=== PATIENT | male | born 1960 | race Caucasian/White ===

== ENCOUNTER 2017-07-08 16:12 | Inpatient (IN) | payer MEDICARE, MEDICAID ==
--- NOTE | 2017-07-08 16:32 | ED Physician Chart ---
ED Chief Complaint/HPI - Patient Information Date Seen:: 07/08/17 Time Seen:: 16:20 Chief Complaint:: Agitation History of Present Illness:: onset x one day of agitation and hostile behavior; no report of trauma, H/As, SIs, neck pain, C/P, SOB, Abd. Pain, A/N/V/D/C, fever, chills, or urinary s/s Allergies:: Allergies Allergy/AdvReac Type Severity Reaction Status Date / Time No Known Allergies Allergy Verified 07/08/17 16:19 Vitals:: Vital Signs - 8 hr 07/08/17 16:19 Temp 97.7 F HR 72 RR 16 BP 132/84 O2 Sat % 96 Historian:: Patient, EMS Review:: Nurse's Note Reviewed, EMS run form Reviewed ED Review of Systems - Review of Systems General/Constitutional: No fever, No chills, No weight loss, No weakness, No diaphoresis, No edema, No loss of appetite Skin: No skin lesions, No rash, No bruising Head: No headache, No light-headedness Eyes: No loss of vision, No pain, No diplopia ENT: No earache, No nasal drainage, No sore throat, No tinnitus Neck: No neck pain, No swelling, No thyromegaly, No stiffness, No mass noted Cardio Vascular: No chest pain, No palpitations, No PND, No orthopnea, No edema Pulmonary: No SOB, No cough, No sputum, No wheezing GI: No nausea, No vomiting, No diarrhea, No pain, No melena, No hematochezia, No constipation, No hematemesis G/U: No dysuria, No frequency, No hematuria, No nacturia Musculoskeletal: No bone or joint pain, No back pain, No muscle pain Endocrine: No polyuria, No polydipsia Psychiatric: Prior psych history, No depression, Anxiety, No suicidal ideation, No homicidal ideation, No auditory hallucination, No visual hallucination Hematopoietic: No bruising, No lymphadenopathy Allergic/Immuno: No urticaria, No angioedema Neurological: No syncope, No focal symptoms, No weakness, No paresthesia, No headache, No seizure, No dizziness, No confusion, No vertigo ED Past Medical History - Past Medical History Obtainable: Yes Past Medical History: HTN Family History: HTN Social History: Non Smoker, No Alcohol, No Drug Use, Single, Homeless Surgical History: None Psychiatricy History: Bipolar Medication: Reviewed ED Physical Exam - Physical Examination General/Constitutional: Awake, Well-developed, well-nourished, Alert, No distress, GCS 15, Non-toxic appearing, Ambulatory Head: Atraumatic Eyes: Lids, conjuctiva normal, PERRL, EOMI Skin: Nl inspection, No rash, No skin lesions, No ecchymosis, Well hydrated, No lymphadenopathy ENMT: External ears, nose nl, Nasal exam nl, Lips, teeth, gums nl Neck: Nontender, Full ROM w/o pain, No JVD, No nuchal rigidity, No bruit, No mass, No stridor Respiratory: Nl effort/Exclusion, Clear to Auscultation, No Wheeze/Rhonchi/Rales Cardio Vascular: RRR, No murmur, gallop, rubs, NL S1 S2, Carotid/Femoral/Distal pulses equal bilaterally GI: No tenderness/rebounding/guarding, No organomegaly, No hernia, Normal BS's, Nondistended, No mass/bruits, No McBurney tenderness : No CVA tenderness Extremities: No tenderness or effusion, Full ROM, normal strength in all extremities, No edema, Normal digits & nails Neuro/Psych: Alert/oriented, DTR's symmetric, Normal sensory exam, Normal motor strength, Judgement/insight normal, Mood normal, Normal gait, No focal deficits Other Neuro/Psych comments:: + Psychomotor Agitation; no SIs; Mood/Affect: Labile Misc: Normal back, No paraspinal tenderness ED Labs/Radiology/EKG Results - Lab Results Comments:: unremarkable - EKG Interpretations EKG Time:: 16:40 Rate & Rhythm: 72; NSR Comments:: non-specific st-t changes ED Septic Shock - . Is Septic Shock (SBP<90, OR Lactate>4 mmol\L) present?: No - <6hrs of presentation: Vital Signs: Vital Signs - 8 hr 07/08/17 16:19 Temp 97.7 F HR 72 RR 16 BP 132/84 O2 Sat % 96 ED Reassessment (Disposition) - Reassessment Reassessment Condition:: Improved - Diagnosis Diagnosis:: Medical Clearance; Agitation; Bipolar Disorder; Psychosis - Aftercare/Follow up Instructions Aftercare/Follow-Up Instructions:: Counseled pt regarding lab results/diagnosis & need follow up, Counseled pt & family regarding lab results/diagnosis & need follow up - Patient Disposition Discharge/Transfer:: Acute Care w/in this hosp Accepting Physician:: Dr. Burden Time Called:: 2678 Time Responded:: 17:15 Admitted to:: [facility] Spoke to:: Dr. Burden Admitting Medical Physician:: Dr. Burden Admitting Psych Physician:: Dr. Eason Condition at Disposition:: Stable, Improved ED Discharge Plan - Patient Disposition Instructions: Psychosis
[2017-07-08 16:51] LABS: % BASOPHILS 0.1 % (0.0-2.0); % EOSINOPHILS 6.9 % (0.0-5.0); % LYMPHOCYTES 26.2 % (20.0-50.0); % MONOCYTES 10.9 % (2.0-10.0); % NEUTROPHILS 55.9 % (40.0-80.0); EOSINOPHILE ABSOLUTE 0.5 Th/cmm (0.1-0.4); HEMATOCRIT 42.7 % (41.0-60); HEMOGLOBIN 14.2 gm/dL (12-16); LYMPHOCYTE ABSOLUTE 1.9 Th/cmm (1.5-3.0); MEAN CELL VOLUME 91.4 fl (80-99); MEAN CORPUSCULAR HEMOGLOBIN 30.4 pg (26.0-30.0); MEAN CORPUSCULAR HGB CONC 33.3 pg (28.0-36.0); MONOCYTE ABSOLUTE 0.8 Th/cmm (0.3-1.0); NEUTROPHILE ABSOLUTE 3.9 Th/cmm (1.8-8.0); PLATELET COUNT 288 Th/cmm (150-400); RED BLOOD COUNT 4.67 Mil/cmm (4.30-5.70); RED CELL DISTRIBUTION WIDTH 12.3 % (11.5-20.0); WHITE BLOOD COUNT 7.1 Th/cmm (4.8-10.8)
[2017-07-08 17:07] LABS: URINE MICROSCOPIC INDICATED? YES; URINE SOURCE CLEAN C
[2017-07-08 17:09] LABS: URINE BILIRUBIN NEGATIVE (NEGATIVE); URINE BLOOD NEGATIVE (NEGATIVE); URINE GLUCOSE (UA) NEGATIVE (NEGATIVE); URINE KETONE NEGATIVE (NEGATIVE); URINE LEUKOCYTE ESTERASE NEGATIVE (NEGATIVE); URINE NITRATE NEGATIVE (NEGATIVE); URINE PROTEIN NEGATIVE (NEGATIVE); URINE UROBILINOGEN 0.2 E.U./dL (0.2 - 1.0)
[2017-07-08 17:11] LABS: ALB/GLOB RATIO 1.4 (1.0-1.8); ALKALINE PHOSPHATASE 68 U/L (34-104); ANION GAP 8.3 (7.0-16.0); BILIRUBIN,TOTAL 0.5 mg/dL (0.3-1.0); BUN - UREA NITROGEN 17 mg/dL (7-25); CALCIUM SERUM 10.2 mg/dL (8.6-10.3); CARBON DIOXIDE 29.3 mEq/L (21.0-31.0); CHLORIDE 105 mEq/L (98-107); CHOLESTEROL 160 mg/dL (<200); GFR AFRICAN-AMERICAN > 60.0 ml/min (>90); GFR NON AFRICAN-AMERICAN > 60.0 ml/min; GLUCOSE 109 mg/dL (70-105); HDL -HIGH DENSITY LIPOPROTEIN 47 mg/dL (23-92); POTASSIUM SERUM 4.6 mEq/L (3.5-5.1); SALICYLATES (ASPIRIN) < 25.0 mg/L (30.0-100.0); SGOT 14 U/L (13-39); SGPT/ALT 14 U/L (7-52); SODIUM SERUM 138 mEq/L (136-145); TOTAL PROTEIN,SERUM 6.9 gm/dL (6.0-8.3); TRIGLYCERIDES 86 mg/dL (<150)
[2017-07-08 17:16] LABS: ACETAMINOPHEN < 10.0 ug/mL (10.0-30.0)
[2017-07-08 17:31] LABS: AMPHETAMINE URINE NEGATIVE (NEGATIVE); BARBITURATES URINE NEGATIVE (NEGATIVE); BENZODIAZEPINES QUAL URINE NEGATIVE (NEGATIVE); CANNABINOID THC POSITIVE (NEGATIVE); COCAINE METABOLITE QUAL URINE NEGATIVE (NEGATIVE); METHADONE URINE NEGATIVE (NEGATIVE); METHAMPHETAMINES QUAL URINE NEGATIVE (NEGATIVE); OPIATES (MORPHINE) QUAL. URINE NEGATIVE (NEGATIVE); PHENCYCLIDINE (PCP) URINE NEGATIVE (NEGATIVE); TRICYCLICS (TCA) QUAL. URINE NEGATIVE (NEGATIVE)
[2017-07-08 17:49] LABS: URINE CLARITY CLEAR (CLEAR); URINE COLOR YELLOW
[2017-07-08 17:50] LABS: URINE BACTERIA NONE SEEN /hpf (NONE SEEN); URINE EPITHELIAL CELLS NONE SEEN /lpf (FEW); URINE RBC NONE SEEN /hpf (0-5); URINE WBC NONE SEEN /hpf (0-5)
[2017-07-08 18:24] LABS: A1C % 5.5 % (4.0-6.0)
[2017-07-08] MEDS ORDERED: Magnesium Hydroxide (MOM) 30 mL UDC PO PRN (18:48)
[2017-07-08] MEDS ORDERED: Maalox 30 mL Cup PO PRN (18:48)
[2017-07-08 19:03] VITALS: BP 120/68
[2017-07-09] MEDS: Multivitamin Tab PO SCH (08:46)
--- NOTE | 2017-07-09 10:51 | History and Physical ---
History of Present Illness - HPI Chief Complaint: Increased in agitation HPI: Patient was send from Care Home secondary to increased in agitation. he was send to ER for Eval and treatment. 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: Report: No Pertinent Hx GI: Report: No Pertinent Hx Psych: Report: Schizophrenia Musculoskeletal: Report: No Pertinent Hx Rheumatologic: Report: No pertinent Hx Infectious Disease: Report: No Pertinent Hx Renal/: Report: No Pertinent Hx Endocrine: Report: No Pertinent Hx Dermatology: Report: No Pertinent Hx - Past Surgical History Past Surgical History: No pertinent Hx Family Medical History - Family Member Mother Name:: Prakash Lazcano Ethnicity: Non- Living Status: Hx Family Diabetes: Yes Other Medical History: Hyperthyroidism Social History Smoke: No Alcohol: None Drugs: None Lives: Care Home Domestic Violence: Negative - Medications Home Medications: Home Medication Medication Instructions Recorded Type Bismuth Subsalicylate 30 ml PO Q4HR PRN 07/09/17 History [Pepto-Bismol] Diphenhydramine HCL [Benadryl] 50 mg PO HS PRN 07/09/17 History Guaifenesin DM [Robitussin DM] 5 ml PO QID PRN 07/09/17 History Ibuprofen [Motrin Ib] 400 mg PO Q6HR 07/09/17 History Lorazepam [Ativan] 0.5 mg PO Q4HR PRN 07/09/17 History Methocarbamol [Robaxin-750] 750 mg PO Q6HR 07/09/17 History Risperidone [Risperdal] 2 mg PO HS 07/09/17 History hydrOXYzine Pamoate [Vistaril] 50 mg PO Q4HR PRN 07/09/17 History - Allergies Allergies/Adverse Reactions: Allergies Allergy/AdvReac Type Severity Reaction Status Date / Time No Known Allergies Allergy Verified 07/08/17 16:19 Review of Systems - Review of Systems Constitutional: Report: No Significant Eyes: Report: No Significant ENT: Report: No Significant Respiratory: Report: No Significant Cardiovascular: Report: No Significant Gastrointestinal: Report: No Significant Genitourinary: Report: No Significant Musculoskeletal: Report: No Significant Skin: Report: No Significant Neurological: Report: No Significant Physical Exam - Physical Exam HEENT: Report: Ears Nose Throat within normal limits Neck: Report: Within normal limits Cardiovascular Systems: Report: Regular, Rate and Rhythm Respiratory: Report: Breath Sounds are within normal limits Abdomen: Report: Non-tender to palpation Back: Report: Inspection of back is within normal limits. Extremities: Report: Non-tender to palpation. Skin: Report: Color of skin is within normal limits Neuro/Psych: Report: Disoriented to name time or place - Lab Results All Lab Results last 24 hours: Laboratory Results - last 24 hr 07/08/17 07/08/17 07/08/17 16:44 16:44 16:44 WBC 7.1 RBC 4.67 Hgb 14.2 Hct 42.7 MCV 91.4 MCH 30.4 H MCHC Differential 33.3 RDW 12.3 Plt Count 288 MPV 7.0 Neutrophils % 55.9 Lymphocytes % 26.2 Monocytes % 10.9 H Eosinophils % 6.9 H Basophils % 0.1 Sodium 138 Potassium 4.6 Chloride 105 Carbon Dioxide 29.3 Anion Gap 8.3 BUN 17 Creatinine 1.0 Est GFR ( Amer) > 60.0 Est GFR (Non-Af Amer) > 60.0 BUN/Creatinine Ratio 17.0 Glucose 109 H Hemoglobin A1c % 5.5 Calcium 10.2 Total Bilirubin 0.5 AST 14 ALT 14 Alkaline Phosphatase 68 Total Protein 6.9 Albumin 4.0 L Globulin 2.9 Albumin/Globulin Ratio 1.4 Triglycerides 86 Cholesterol 160 LDL Cholesterol Direct 100 HDL Cholesterol 47 TSH Salicylates < 25.0 L Acetaminophen < 10.0 L Ethyl Alcohol < 10 07/08/17 16:44 WBC RBC Hgb Hct MCV MCH MCHC Differential RDW Plt Count MPV Neutrophils % Lymphocytes % Monocytes % Eosinophils % Basophils % Sodium Potassium Chloride Carbon Dioxide Anion Gap BUN Creatinine Est GFR ( Amer) Est GFR (Non-Af Amer) BUN/Creatinine Ratio Glucose Hemoglobin A1c % Calcium Total Bilirubin AST ALT Alkaline Phosphatase Total Protein Albumin Globulin Albumin/Globulin Ratio Triglycerides Cholesterol LDL Cholesterol Direct HDL Cholesterol TSH 0.44 Salicylates Acetaminophen Ethyl Alcohol - Assessment Assessment: Patient is awake, alert, agitated at moments. DX: Psychosis, HTN - Plan Plan: Patient is under Psychiatric care, continue with SNF meds. Will continue to monitor.
[2017-07-09] MEDS ORDERED: Haloperidol Lactate 5 mg/mL 1mL Vial ONE (11:40)
[2017-07-09] MEDS ORDERED: Haloperidol Lactate 5 mg/mL 1mL Vial IM ONE (11:51)
--- NOTE | 2017-07-10 01:47 | Psychosocial Evaluation ---
DATE OF SERVICE: 07/09/2017 JUSTIFICATION FOR HOSPITALIZATION: The patient homicidal, wants to kill cousin. CHIEF COMPLAINT: "I am the Ark of [employer] [place]." HISTORY OF PRESENT ILLNESS: This is a 57-year-old male who states he has a history of mental illness, states that his cousin is "the son of evil" and that the patient is the "Ark of the [place]und[place]" and that there is a montelongo that is going to ensue and he wants his cousin to come to the hospital, so he can montelongo his cousin. The patient committed to harming cousin, wants to kill cousin. The patient upset, endorsing psychological distress and turmoil, highly disorganized and psychotic, not making any sense at times. PAST PSYCHIATRIC HISTORY: "Mental illness." MEDICATIONS: Reviewed. He states he takes Risperdal, unclear compliance. FAMILY HISTORY: Noncontributory. SOCIAL HISTORY: Born in the [facility], single, no kids, homeless, smokes marijuana. When I asked him where his cousin lives - he does not know, when I asked him his cousin's phone number - he does not know, he does give me his cousin's name however. MENTAL STATUS EXAMINATION: Stated age, somewhat lethargic, not answering some questions. Mood "okay." Affect flat. Thought processes were disorganized. Thought content not suicidal, but he is homicidal, wants to harm cousin, also paranoid and delusional and grandiose. Insight and judgment strongly diminished. PROVISIONAL DIAGNOSIS: Schizophrenia. MEDICAL: Please see full H and P. Also, marijuana use disorder, unspecified. ESTIMATED LENGTH OF STAY: 5-7 days. Functional impairments not noted. Pain 0/10. ASSESSMENT: The patient requiring inpatient hospitalization, psychotic, delusional, homicidal. PLAN: Continue Risperdal. Titrate dose. A Tarasoff may need to be filed if contact information can be found for the cousin. CONDITIONS FOR DISCHARGE: Improved mood, improved affect, cessation of any HI and better control of his psychotic symptoms. [facility]# [id number]
[2017-07-10] MEDS: Multivitamin Tab PO SCH (08:05)
--- NOTE | 2017-07-10 08:44 | General Progress Note ---
Subjective - Review of Systems Service Date: 07/10/17 Subjective: I want to see my doctor. Objective - Results Result Diagrams: 07/08/17 16:44 07/08/17 16:44 Recent Labs: Laboratory Last Values WBC 7.1 Th/cmm (4.8-10.8) 07/08/17 16:44 RBC 4.67 Mil/cmm (4.30-5.70) 07/08/17 16:44 Hgb 14.2 gm/dL (12-16) 07/08/17 16:44 Hct 42.7 % (41.0-60) 07/08/17 16:44 MCV 91.4 fl (80-99) 07/08/17 16:44 MCH 30.4 pg (26.0-30.0) H 07/08/17 16:44 MCHC Differential 33.3 pg (28.0-36.0) 07/08/17 16:44 RDW 12.3 % (11.5-20.0) 07/08/17 16:44 Plt Count 288 Th/cmm (150-400) 07/08/17 16:44 MPV 7.0 fl 07/08/17 16:44 Neutrophils % 55.9 % (40.0-80.0) 07/08/17 16:44 Lymphocytes % 26.2 % (20.0-50.0) 07/08/17 16:44 Monocytes % 10.9 % (2.0-10.0) H 07/08/17 16:44 Eosinophils % 6.9 % (0.0-5.0) H 07/08/17 16:44 Basophils % 0.1 % (0.0-2.0) 07/08/17 16:44 Sodium 138 mEq/L (136-145) 07/08/17 16:44 Potassium 4.6 mEq/L (3.5-5.1) 07/08/17 16:44 Chloride 105 mEq/L (98-107) 07/08/17 16:44 Carbon Dioxide 29.3 mEq/L (21.0-31.0) 07/08/17 16:44 Anion Gap 8.3 (7.0-16.0) 07/08/17 16:44 BUN 17 mg/dL (7-25) 07/08/17 16:44 Creatinine 1.0 mg/dL (0.7-1.3) 07/08/17 16:44 Est GFR ( Amer) > 60.0 ml/min (>90) 07/08/17 16:44 Est GFR (Non-Af Amer) > 60.0 ml/min 07/08/17 16:44 BUN/Creatinine Ratio 17.0 07/08/17 16:44 Glucose 109 mg/dL (70-105) H 07/08/17 16:44 Hemoglobin A1c % 5.5 % (4.0-6.0) 07/08/17 16:44 Calcium 10.2 mg/dL (8.6-10.3) 07/08/17 16:44 Total Bilirubin 0.5 mg/dL (0.3-1.0) 07/08/17 16:44 AST 14 U/L (13-39) 07/08/17 16:44 ALT 14 U/L (7-52) 07/08/17 16:44 Alkaline Phosphatase 68 U/L (34-104) 07/08/17 16:44 Total Protein 6.9 gm/dL (6.0-8.3) 07/08/17 16:44 Albumin 4.0 gm/dL (4.2-5.5) L 07/08/17 16:44 Globulin 2.9 gm/dL 07/08/17 16:44 Albumin/Globulin Ratio 1.4 (1.0-1.8) 07/08/17 16:44 Triglycerides 86 mg/dL (<150) 07/08/17 16:44 Cholesterol 160 mg/dL (<200) 07/08/17 16:44 LDL Cholesterol Direct 100 mg/dL (75-193) 07/08/17 16:44 HDL Cholesterol 47 mg/dL (23-92) 07/08/17 16:44 TSH 0.44 uIU/ml (0.34-5.60) 07/08/17 16:44 Urine Source CLEAN C 07/08/17 16:00 Urine Color YELLOW 07/08/17 16:00 Urine Clarity CLEAR (CLEAR) 07/08/17 16:00 Urine pH 7.0 (4.6 - 8.0) 07/08/17 16:00 Ur Specific [place] 1.020 (1.005-1.030) 07/08/17 16:00 Urine Protein NEGATIVE mg/dL (NEGATIVE) 07/08/17 16:00 Urine Glucose (UA) NEGATIVE mg/dL (NEGATIVE) 07/08/17 16:00 Urine Ketones NEGATIVE mg/dL (NEGATIVE) 07/08/17 16:00 Urine Blood NEGATIVE (NEGATIVE) 07/08/17 16:00 Urine Nitrate NEGATIVE (NEGATIVE) 07/08/17 16:00 Urine Bilirubin NEGATIVE (NEGATIVE) 07/08/17 16:00 Urine Urobilinogen 0.2 E.U./dL (0.2 - 1.0) 07/08/17 16:00 Ur Leukocyte Esterase NEGATIVE (NEGATIVE) 07/08/17 16:00 Urine RBC NONE SEEN /hpf (0-5) 07/08/17 16:00 Urine WBC NONE SEEN /hpf (0-5) 07/08/17 16:00 Ur Epithelial Cells NONE SEEN /lpf (FEW) 07/08/17 16:00 Urine Bacteria NONE SEEN /hpf (NONE SEEN) 07/08/17 16:00 Salicylates < 25.0 mg/L (30.0-100.0) L 07/08/17 16:44 Urine Opiates Screen NEGATIVE (NEGATIVE) 07/08/17 16:00 Urine Methadone Screen NEGATIVE (NEGATIVE) 07/08/17 16:00 Acetaminophen < 10.0 ug/mL (10.0-30.0) L 07/08/17 16:44 Ur Barbiturates Screen NEGATIVE (NEGATIVE) 07/08/17 16:00 Ur Tricyclics Screen NEGATIVE (NEGATIVE) 07/08/17 16:00 Ur Phencyclidine Scrn NEGATIVE (NEGATIVE) 07/08/17 16:00 Amphetamines Screen NEGATIVE (NEGATIVE) 07/08/17 16:00 U Methamphetamines Scrn NEGATIVE (NEGATIVE) 07/08/17 16:00 U Benzodiazepines Scrn NEGATIVE (NEGATIVE) 07/08/17 16:00 U Cocaine Metab Screen NEGATIVE (NEGATIVE) 07/08/17 16:00 U Cannabinoids Screen POSITIVE (NEGATIVE) H 07/08/17 16:00 Ethyl Alcohol < 10 mg/dL (0-10) 07/08/17 16:44 RPR NONREACTIVE (NONREACTIVE) 07/08/17 16:44 - Physical Exam Vitals and I&O: Vital Signs Temp 98.1 F 07/10/17 06:56 Pulse 95 07/10/17 06:56 Resp 20 07/10/17 06:56 BP 117/67 07/10/17 06:56 Pulse Ox 99 07/10/17 06:56 Intake & Output 07/09/17 07/10/17 07/10/17 18:59 06:59 18:59 Intake Total 900 120 Balance 900 120 Intake: Oral 900 120 Other: # Voids 3 2 Stool Characteristics Soft Formed Active Medications: Current Medications Acetaminophen (Tylenol) 650 mg PO Q4HR PRN PRN Reason: Mild Pain / Temp above 100 Stop: 09/06/17 18:47 Al Hydrox/Mg Hydrox/Simethicone (Maalox) 30 ml PO Q4HR PRN PRN Reason: GI DISTRESS Stop: 09/06/17 18:47 Lorazepam (Ativan) 0.5 mg PO Q4HR PRN; Protocol PRN Reason: Agitation Stop: 08/07/17 18:47 Last Admin: 07/10/17 08:05 Dose: 0.5 mg Magnesium Hydroxide (Milk Of Magnesia) 30 ml PO HS PRN PRN Reason: Constipation Multivitamins/Vitamin C (Theragran) 1 tab PO DAILY KATHIE Stop: 09/07/17 08:59 Last Admin: 07/10/17 08:05 Dose: 1 tab Risperidone (Risperdal) 2 mg PO DAILY KATHIE PRN Reason: Protocol Stop: 09/07/17 08:59 Last Admin: 07/10/17 08:05 Dose: 2 mg Zolpidem Tartrate (Ambien) 5 mg PO HS PRN PRN Reason: Insomnia Stop: 09/06/17 18:47 General: Alert, No acute distress HEENT: Atraumatic, PERRLA Cardiovascular: Regular rate Lungs: Clear to auscultation Abdomen: Bowel sounds, Soft Extremities: Other (No edema) Neurological: Normal gait Skin: Other (Warm and dry) Psych/Mental Status: Other (Confused, not oriented) Assessment/Plan - Assessment Assessment: Patient is awake, alert, agitated at moments. DX: Psychosis, HTN - Plan Plan: Patient is under Psychiatric care, continue with SNF meds. Will continue to monitor.
--- NOTE | 2017-07-10 16:33 | Progress Notes ---
DATE: 07/10/2017 The patient remains symptomatic, still talking about being The [place] of [place], he is a positive spirit, his [id number] is "the son of evil," still talking he wanted to kill him, "montelongo, I am ready to montelongo him." He states that he wants to surround him with "peace and love." The patient is highly delusional, bizarre. The patient at the same time also agitated, required emergency medications over the past 24 hours. ASSESSMENT: The patient remains symptomatic, highly delusional, still with psychotic agitation, responding heavily to internal stimuli, hyper-restorationist. PLAN: Initiate a 14-day hold. Increase Respirdal. [facility]# [id number]
--- NOTE | 2017-07-11 07:02 | Progress Notes ---
DATE: 07/11/2017 SUBJECTIVE: The patient remains symptomatic, delusional, bizarre, still stating that he wants to kill his cousin and now when I ask him if he still wants to kill his cousin, he states "oh yes I definitely want to kill him." When I asked him how, he states "with peace and love.'' The patient is odd, still at times agitated, mumbling to self. ASSESSMENT: The patient highly delusional, homicidal, not safe for a lower level of care. Given recent dose increase of Risperdal, will continue at current dose. [facility]# [id number]
[2017-07-11] MEDS: Multivitamin Tab PO SCH (08:17)
--- NOTE | 2017-07-11 10:45 | General Progress Note ---
Subjective - Review of Systems Service Date: 07/11/17 Subjective: I want to kill the antichrist Objective - Results Result Diagrams: 07/08/17 16:44 07/08/17 16:44 Recent Labs: Laboratory Last Values WBC 7.1 Th/cmm (4.8-10.8) 07/08/17 16:44 RBC 4.67 Mil/cmm (4.30-5.70) 07/08/17 16:44 Hgb 14.2 gm/dL (12-16) 07/08/17 16:44 Hct 42.7 % (41.0-60) 07/08/17 16:44 MCV 91.4 fl (80-99) 07/08/17 16:44 MCH 30.4 pg (26.0-30.0) H 07/08/17 16:44 MCHC Differential 33.3 pg (28.0-36.0) 07/08/17 16:44 RDW 12.3 % (11.5-20.0) 07/08/17 16:44 Plt Count 288 Th/cmm (150-400) 07/08/17 16:44 MPV 7.0 fl 07/08/17 16:44 Neutrophils % 55.9 % (40.0-80.0) 07/08/17 16:44 Lymphocytes % 26.2 % (20.0-50.0) 07/08/17 16:44 Monocytes % 10.9 % (2.0-10.0) H 07/08/17 16:44 Eosinophils % 6.9 % (0.0-5.0) H 07/08/17 16:44 Basophils % 0.1 % (0.0-2.0) 07/08/17 16:44 Sodium 138 mEq/L (136-145) 07/08/17 16:44 Potassium 4.6 mEq/L (3.5-5.1) 07/08/17 16:44 Chloride 105 mEq/L (98-107) 07/08/17 16:44 Carbon Dioxide 29.3 mEq/L (21.0-31.0) 07/08/17 16:44 Anion Gap 8.3 (7.0-16.0) 07/08/17 16:44 BUN 17 mg/dL (7-25) 07/08/17 16:44 Creatinine 1.0 mg/dL (0.7-1.3) 07/08/17 16:44 Est GFR ( Amer) > 60.0 ml/min (>90) 07/08/17 16:44 Est GFR (Non-Af Amer) > 60.0 ml/min 07/08/17 16:44 BUN/Creatinine Ratio 17.0 07/08/17 16:44 Glucose 109 mg/dL (70-105) H 07/08/17 16:44 Hemoglobin A1c % 5.5 % (4.0-6.0) 07/08/17 16:44 Calcium 10.2 mg/dL (8.6-10.3) 07/08/17 16:44 Total Bilirubin 0.5 mg/dL (0.3-1.0) 07/08/17 16:44 AST 14 U/L (13-39) 07/08/17 16:44 ALT 14 U/L (7-52) 07/08/17 16:44 Alkaline Phosphatase 68 U/L (34-104) 07/08/17 16:44 Total Protein 6.9 gm/dL (6.0-8.3) 07/08/17 16:44 Albumin 4.0 gm/dL (4.2-5.5) L 07/08/17 16:44 Globulin 2.9 gm/dL 07/08/17 16:44 Albumin/Globulin Ratio 1.4 (1.0-1.8) 07/08/17 16:44 Triglycerides 86 mg/dL (<150) 07/08/17 16:44 Cholesterol 160 mg/dL (<200) 07/08/17 16:44 LDL Cholesterol Direct 100 mg/dL (75-193) 07/08/17 16:44 HDL Cholesterol 47 mg/dL (23-92) 07/08/17 16:44 TSH 0.44 uIU/ml (0.34-5.60) 07/08/17 16:44 Urine Source CLEAN C 07/08/17 16:00 Urine Color YELLOW 07/08/17 16:00 Urine Clarity CLEAR (CLEAR) 07/08/17 16:00 Urine pH 7.0 (4.6 - 8.0) 07/08/17 16:00 Ur Specific [place] 1.020 (1.005-1.030) 07/08/17 16:00 Urine Protein NEGATIVE mg/dL (NEGATIVE) 07/08/17 16:00 Urine Glucose (UA) NEGATIVE mg/dL (NEGATIVE) 07/08/17 16:00 Urine Ketones NEGATIVE mg/dL (NEGATIVE) 07/08/17 16:00 Urine Blood NEGATIVE (NEGATIVE) 07/08/17 16:00 Urine Nitrate NEGATIVE (NEGATIVE) 07/08/17 16:00 Urine Bilirubin NEGATIVE (NEGATIVE) 07/08/17 16:00 Urine Urobilinogen 0.2 E.U./dL (0.2 - 1.0) 07/08/17 16:00 Ur Leukocyte Esterase NEGATIVE (NEGATIVE) 07/08/17 16:00 Urine RBC NONE SEEN /hpf (0-5) 07/08/17 16:00 Urine WBC NONE SEEN /hpf (0-5) 07/08/17 16:00 Ur Epithelial Cells NONE SEEN /lpf (FEW) 07/08/17 16:00 Urine Bacteria NONE SEEN /hpf (NONE SEEN) 07/08/17 16:00 Salicylates < 25.0 mg/L (30.0-100.0) L 07/08/17 16:44 Urine Opiates Screen NEGATIVE (NEGATIVE) 07/08/17 16:00 Urine Methadone Screen NEGATIVE (NEGATIVE) 07/08/17 16:00 Acetaminophen < 10.0 ug/mL (10.0-30.0) L 03 16:44 Ur Barbiturates Screen NEGATIVE (NEGATIVE) 07/08/17 16:00 Ur Tricyclics Screen NEGATIVE (NEGATIVE) 07/08/17 16:00 Ur Phencyclidine Scrn NEGATIVE (NEGATIVE) 07/08/17 16:00 Amphetamines Screen NEGATIVE (NEGATIVE) 07/08/17 16:00 U Methamphetamines Scrn NEGATIVE (NEGATIVE) 07/08/17 16:00 U Benzodiazepines Scrn NEGATIVE (NEGATIVE) 07/08/17 16:00 U Cocaine Metab Screen NEGATIVE (NEGATIVE) 07/08/17 16:00 U Cannabinoids Screen POSITIVE (NEGATIVE) H 07/08/17 16:00 Ethyl Alcohol < 10 mg/dL (0-10) 07/08/17 16:44 RPR NONREACTIVE (NONREACTIVE) 07/08/17 16:44 - Physical Exam Vitals and I&O: Vital Signs Temp 97.6 F 07/10/17 15:23 Pulse 87 07/10/17 15:23 Resp 18 07/10/17 15:23 BP 110/62 07/10/17 15:23 Pulse Ox 98 07/10/17 15:23 Intake & Output 07/10/1718 07/11/17 18:59 06:59 18:59 Intake Total 1500 Balance 1500 Intake: Oral 1500 Other: # Voids 3 # Bowel Movements 1 Stool Characteristics Soft Formed Active Medications: Current Medications Acetaminophen (Tylenol) 650 mg PO Q4HR PRN PRN Reason: Mild Pain / Temp above 100 Stop: 09/06/17 18:47 Al Hydrox/Mg Hydrox/Simethicone (Maalox) 30 ml PO Q4HR PRN PRN Reason: GI DISTRESS Stop: 09/06/17 18:47 Divalproex Sodium (Depakote Dr) 250 mg PO BID KATHIE PRN Reason: Protocol Stop: 09/08/17 16:59 Last Admin: 07/11/17 10:38 Dose: 250 mg Lorazepam (Ativan) 0.5 mg PO Q4HR PRN; Protocol PRN Reason: Agitation Stop: 08/07/17 18:47 Last Admin: 07/10/17 08:05 Dose: 0.5 mg Magnesium Hydroxide (Milk Of Magnesia) 30 ml PO HS PRN PRN Reason: Constipation Multivitamins/Vitamin C (Theragran) 1 tab PO DAILY KATHIE Stop: 09/07/17 08:59 Last Admin: 07/11/17 08:17 Dose: 1 tab Risperidone (Risperdal) 3 mg PO DAILY KATHIE PRN Reason: Protocol Stop: 09/08/17 12:10 Last Admin: 07/11/17 08:17 Dose: 3 mg Zolpidem Tartrate (Ambien) 5 mg PO HS PRN PRN Reason: Insomnia Stop: 09/06/17 18:47 General: Alert, No acute distress HEENT: Atraumatic, PERRLA Cardiovascular: Regular rate Lungs: Clear to auscultation Abdomen: Bowel sounds, Soft Extremities: Other (No edema) Neurological: Normal gait Skin: Other (Warm and dry) Psych/Mental Status: Other (Confused, not oriented) Assessment/Plan - Assessment Assessment: Patient is awake, alert, agitated at moments. DX: Psychosis, HTN. - Plan Plan: Patient is under Psychiatric care, continue with SNF meds. Will continue to monitor.
--- NOTE | 2017-07-12 08:22 | Progress Notes ---
DATE: 07/12/2017 The patient is currently in the hospital, symptomatic, still delusional, still talking about wanting to kill [id number] with "peace and love," still bizarre, mumbling to self, hyper-mormon. He is taking his medications. Better med compliance and no medication side effects noted. ASSESSMENT: The patient highly delusional, not safe for a lower level of care. We will continue to monitor. Continue to hold, the patient is not safe for discharge at this time given his dangerousness. [facility]# [id number]
[2017-07-12] MEDS: Multivitamin Tab PO SCH (08:47)
--- NOTE | 2017-07-12 08:47 | General Progress Note ---
Subjective - Review of Systems Service Date: 07/12/17 Subjective: I have a flu Objective - Results Result Diagrams: 07/08/17 16:44 07/08/17 16:44 Recent Labs: Laboratory Last Values WBC 7.1 Th/cmm (4.8-10.8) 07/08/17 16:44 RBC 4.67 Mil/cmm (4.30-5.70) 07/08/17 16:44 Hgb 14.2 gm/dL (12-16) 07/08/17 16:44 Hct 42.7 % (41.0-60) 07/08/17 16:44 MCV 91.4 fl (80-99) 07/08/17 16:44 MCH 30.4 pg (26.0-30.0) H 07/08/17 16:44 MCHC Differential 33.3 pg (28.0-36.0) 07/08/17 16:44 RDW 12.3 % (11.5-20.0) 07/08/17 16:44 Plt Count 288 Th/cmm (150-400) 07/08/17 16:44 MPV 7.0 fl 07/08/17 16:44 Neutrophils % 55.9 % (40.0-80.0) 07/08/17 16:44 Lymphocytes % 26.2 % (20.0-50.0) 07/08/17 16:44 Monocytes % 10.9 % (2.0-10.0) H 07/08/17 16:44 Eosinophils % 6.9 % (0.0-5.0) H 07/08/17 16:44 Basophils % 0.1 % (0.0-2.0) 07/08/17 16:44 Sodium 138 mEq/L (136-145) 07/08/17 16:44 Potassium 4.6 mEq/L (3.5-5.1) 07/08/17 16:44 Chloride 105 mEq/L (98-107) 07/08/17 16:44 Carbon Dioxide 29.3 mEq/L (21.0-31.0) 07/08/17 16:44 Anion Gap 8.3 (7.0-16.0) 07/08/17 16:44 BUN 17 mg/dL (7-25) 07/08/17 16:44 Creatinine 1.0 mg/dL (0.7-1.3) 07/08/17 16:44 Est GFR ( Amer) > 60.0 ml/min (>90) 07/08/17 16:44 Est GFR (Non-Af Amer) > 60.0 ml/min 07/08/17 16:44 BUN/Creatinine Ratio 17.0 07/08/17 16:44 Glucose 109 mg/dL (70-105) H 07/08/17 16:44 Hemoglobin A1c % 5.5 % (4.0-6.0) 07/08/17 16:44 Calcium 10.2 mg/dL (8.6-10.3) 07/08/17 16:44 Total Bilirubin 0.5 mg/dL (0.3-1.0) 07/08/17 16:44 AST 14 U/L (13-39) 07/08/17 16:44 ALT 14 U/L (7-52) 07/08/17 16:44 Alkaline Phosphatase 68 U/L (34-104) 07/08/17 16:44 Total Protein 6.9 gm/dL (6.0-8.3) 07/08/17 16:44 Albumin 4.0 gm/dL (4.2-5.5) L 07/08/17 16:44 Globulin 2.9 gm/dL 07/08/17 16:44 Albumin/Globulin Ratio 1.4 (1.0-1.8) 07/08/17 16:44 Triglycerides 86 mg/dL (<150) 07/08/17 16:44 Cholesterol 160 mg/dL (<200) 07/08/17 16:44 LDL Cholesterol Direct 100 mg/dL (75-193) 07/08/17 16:44 HDL Cholesterol 47 mg/dL (23-92) 07/08/17 16:44 TSH 0.44 uIU/ml (0.34-5.60) 07/08/17 16:44 Urine Source CLEAN C 07/08/17 16:00 Urine Color YELLOW 07/08/17 16:00 Urine Clarity CLEAR (CLEAR) 07/08/17 16:00 Urine pH 7.0 (4.6 - 8.0) 07/08/17 16:00 Ur Specific [place] 1.020 (1.005-1.030) 07/08/17 16:00 Urine Protein NEGATIVE mg/dL (NEGATIVE) 07/08/17 16:00 Urine Glucose (UA) NEGATIVE mg/dL (NEGATIVE) 07/08/17 16:00 Urine Ketones NEGATIVE mg/dL (NEGATIVE) 07/08/17 16:00 Urine Blood NEGATIVE (NEGATIVE) 07/08/17 16:00 Urine Nitrate NEGATIVE (NEGATIVE) 07/08/17 16:00 Urine Bilirubin NEGATIVE (NEGATIVE) 07/08/17 16:00 Urine Urobilinogen 0.2 E.U./dL (0.2 - 1.0) 07/08/17 16:00 Ur Leukocyte Esterase NEGATIVE (NEGATIVE) 07/08/17 16:00 Urine RBC NONE SEEN /hpf (0-5) 07/08/17 16:00 Urine WBC NONE SEEN /hpf (0-5) 07/08/17 16:00 Ur Epithelial Cells NONE SEEN /lpf (FEW) 07/08/17 16:00 Urine Bacteria NONE SEEN /hpf (NONE SEEN) 07/08/17 16:00 Salicylates < 25.0 mg/L (30.0-100.0) L 07/08/17 16:44 Urine Opiates Screen NEGATIVE (NEGATIVE) 07/08/17 16:00 Urine Methadone Screen NEGATIVE (NEGATIVE) 07/08/17 16:00 Acetaminophen < 10.0 ug/mL (10.0-30.0) L 07/08/17 16:44 Ur Barbiturates Screen NEGATIVE (NEGATIVE) 07/08/17 16:00 Ur Tricyclics Screen NEGATIVE (NEGATIVE) 07/08/17 16:00 Ur Phencyclidine Scrn NEGATIVE (NEGATIVE) 07/08/17 16:00 Amphetamines Screen NEGATIVE (NEGATIVE) 07/08/17 16:00 U Methamphetamines Scrn NEGATIVE (NEGATIVE) 07/08/17 16:00 U Benzodiazepines Scrn NEGATIVE (NEGATIVE) 07/08/17 16:00 U Cocaine Metab Screen NEGATIVE (NEGATIVE) 07/08/17 16:00 U Cannabinoids Screen POSITIVE (NEGATIVE) H 07/08/17 16:00 Ethyl Alcohol < 10 mg/dL (0-10) 07/08/17 16:44 RPR NONREACTIVE (NONREACTIVE) 07/08/17 16:44 - Physical Exam Vitals and I&O: Vital Signs Temp 97.0 F 07/11/17 15:27 Pulse 89 07/11/17 15:27 Resp 20 07/11/17 15:27 BP 112/69 07/11/17 15:27 Pulse Ox 97 07/11/17 15:27 Intake & Output 07/11/1718 18 18:59 06:59 18:59 Intake Total 1500 Balance 1500 Intake: Oral 1500 Other: # Voids 3 # Bowel Movements 1 Active Medications: Current Medications Acetaminophen (Tylenol) 650 mg PO Q4HR PRN PRN Reason: Mild Pain / Temp above 100 Stop: 09/06/17 18:47 Al Hydrox/Mg Hydrox/Simethicone (Maalox) 30 ml PO Q4HR PRN PRN Reason: GI DISTRESS Stop: 09/06/17 18:47 Divalproex Sodium (Depakote Dr) 250 mg PO BID KATHIE PRN Reason: Protocol Stop: 09/08/17 16:59 Last Admin: 07/11/17 16:18 Dose: 250 mg Lorazepam (Ativan) 0.5 mg PO Q4HR PRN; Protocol PRN Reason: Agitation Stop: 08/07/17 18:47 Last Admin: 07/10/17 08:05 Dose: 0.5 mg Magnesium Hydroxide (Milk Of Magnesia) 30 ml PO HS PRN PRN Reason: Constipation Multivitamins/Vitamin C (Theragran) 1 tab PO DAILY KATHIE Stop: 09/07/17 08:59 Last Admin: 07/11/17 08:17 Dose: 1 tab Risperidone (Risperdal) 3 mg PO DAILY KATHIE PRN Reason: Protocol Stop: 09/08/17 12:10 Last Admin: 07/11/17 08:17 Dose: 3 mg Zolpidem Tartrate (Ambien) 5 mg PO HS PRN PRN Reason: Insomnia Stop: 09/06/17 18:47 Last Admin: 07/11/17 21:14 Dose: 5 mg General: Alert, No acute distress HEENT: Atraumatic, PERRLA Cardiovascular: Regular rate Lungs: Clear to auscultation Abdomen: Bowel sounds, Soft Extremities: Other (No edema) Neurological: Normal gait Skin: Other (Warm and dry) Psych/Mental Status: Other (Confused, not oriented) Assessment/Plan - Assessment Assessment: Patient is awake, alert, agitated at moments. DX: Psychosis, HTN. - Plan Plan: Patient is under Psychiatric care, continue with SNF meds. Will continue to monitor.
[2017-07-13] MEDS: Multivitamin Tab PO SCH (08:14)
--- NOTE | 2017-07-13 09:00 | General Progress Note ---
Subjective - Review of Systems Service Date: 07/13/17 Subjective: I fell better. Objective - Results Result Diagrams: 07/08/17 16:44 07/08/17 16:44 Recent Labs: Laboratory Last Values WBC 7.1 Th/cmm (4.8-10.8) 07/08/17 16:44 RBC 4.67 Mil/cmm (4.30-5.70) 07/08/17 16:44 Hgb 14.2 gm/dL (12-16) 07/08/17 16:44 Hct 42.7 % (41.0-60) 07/08/17 16:44 MCV 91.4 fl (80-99) 07/08/17 16:44 MCH 30.4 pg (26.0-30.0) H 07/08/17 16:44 MCHC Differential 33.3 pg (28.0-36.0) 07/08/17 16:44 RDW 12.3 % (11.5-20.0) 07/08/17 16:44 Plt Count 288 Th/cmm (150-400) 07/08/17 16:44 MPV 7.0 fl 07/08/17 16:44 Neutrophils % 55.9 % (40.0-80.0) 07/08/17 16:44 Lymphocytes % 26.2 % (20.0-50.0) 07/08/17 16:44 Monocytes % 10.9 % (2.0-10.0) H 07/08/17 16:44 Eosinophils % 6.9 % (0.0-5.0) H 07/08/17 16:44 Basophils % 0.1 % (0.0-2.0) 07/08/17 16:44 Sodium 138 mEq/L (136-145) 07/08/17 16:44 Potassium 4.6 mEq/L (3.5-5.1) 07/08/17 16:44 Chloride 105 mEq/L (98-107) 07/08/17 16:44 Carbon Dioxide 29.3 mEq/L (21.0-31.0) 07/08/17 16:44 Anion Gap 8.3 (7.0-16.0) 07/08/17 16:44 BUN 17 mg/dL (7-25) 07/08/17 16:44 Creatinine 1.0 mg/dL (0.7-1.3) 07/08/17 16:44 Est GFR ( Amer) > 60.0 ml/min (>90) 07/08/17 16:44 Est GFR (Non-Af Amer) > 60.0 ml/min 07/08/17 16:44 BUN/Creatinine Ratio 17.0 07/08/17 16:44 Glucose 109 mg/dL (70-105) H 07/08/17 16:44 Hemoglobin A1c % 5.5 % (4.0-6.0) 07/08/17 16:44 Calcium 10.2 mg/dL (8.6-10.3) 07/08/17 16:44 Total Bilirubin 0.5 mg/dL (0.3-1.0) 07/08/17 16:44 AST 14 U/L (13-39) 07/08/17 16:44 ALT 14 U/L (7-52) 07/08/17 16:44 Alkaline Phosphatase 68 U/L (34-104) 07/08/17 16:44 Total Protein 6.9 gm/dL (6.0-8.3) 07/08/17 16:44 Albumin 4.0 gm/dL (4.2-5.5) L 07/08/17 16:44 Globulin 2.9 gm/dL 07/08/17 16:44 Albumin/Globulin Ratio 1.4 (1.0-1.8) 07/08/17 16:44 Triglycerides 86 mg/dL (<150) 07/08/17 16:44 Cholesterol 160 mg/dL (<200) 07/08/17 16:44 LDL Cholesterol Direct 100 mg/dL (75-193) 07/08/17 16:44 HDL Cholesterol 47 mg/dL (23-92) 07/08/17 16:44 TSH 0.44 uIU/ml (0.34-5.60) 07/08/17 16:44 Urine Source CLEAN C 07/08/17 16:00 Urine Color YELLOW 07/08/17 16:00 Urine Clarity CLEAR (CLEAR) 07/08/17 16:00 Urine pH 7.0 (4.6 - 8.0) 07/08/17 16:00 Ur Specific [place] 1.020 (1.005-1.030) 07/08/17 16:00 Urine Protein NEGATIVE mg/dL (NEGATIVE) 07/08/17 16:00 Urine Glucose (UA) NEGATIVE mg/dL (NEGATIVE) 07/08/17 16:00 Urine Ketones NEGATIVE mg/dL (NEGATIVE) 07/08/17 16:00 Urine Blood NEGATIVE (NEGATIVE) 07/08/17 16:00 Urine Nitrate NEGATIVE (NEGATIVE) 07/08/17 16:00 Urine Bilirubin NEGATIVE (NEGATIVE) 07/08/17 16:00 Urine Urobilinogen 0.2 E.U./dL (0.2 - 1.0) 07/08/17 16:00 Ur Leukocyte Esterase NEGATIVE (NEGATIVE) 07/08/17 16:00 Urine RBC NONE SEEN /hpf (0-5) 07/08/17 16:00 Urine WBC NONE SEEN /hpf (0-5) 07/08/17 16:00 Ur Epithelial Cells NONE SEEN /lpf (FEW) 07/08/17 16:00 Urine Bacteria NONE SEEN /hpf (NONE SEEN) 07/08/17 16:00 Salicylates < 25.0 mg/L (30.0-100.0) L 07/08/17 16:44 Urine Opiates Screen NEGATIVE (NEGATIVE) 07/08/17 16:00 Urine Methadone Screen NEGATIVE (NEGATIVE) 07/08/17 16:00 Acetaminophen < 10.0 ug/mL (10.0-30.0) L 07/08/17 16:44 Ur Barbiturates Screen NEGATIVE (NEGATIVE) 07/08/17 16:00 Ur Tricyclics Screen NEGATIVE (NEGATIVE) 07/08/17 16:00 Ur Phencyclidine Scrn NEGATIVE (NEGATIVE) 07/08/17 16:00 Amphetamines Screen NEGATIVE (NEGATIVE) 07/08/17 16:00 U Methamphetamines Scrn NEGATIVE (NEGATIVE) 07/08/17 16:00 U Benzodiazepines Scrn NEGATIVE (NEGATIVE) 07/08/17 16:00 U Cocaine Metab Screen NEGATIVE (NEGATIVE) 07/08/17 16:00 U Cannabinoids Screen POSITIVE (NEGATIVE) H 07/08/17 16:00 Ethyl Alcohol < 10 mg/dL (0-10) 07/08/17 16:44 RPR NONREACTIVE (NONREACTIVE) 07/08/17 16:44 - Physical Exam Vitals and I&O: Vital Signs Temp 98.2 F 07/13/17 05:57 Pulse 88 07/13/17 05:57 Resp 20 07/13/17 05:57 BP 114/76 07/13/17 05:57 Pulse Ox 97 07/13/17 05:57 Intake & Output 07/12/17 07/13/17 07/13/17 18:59 06:59 18:59 Intake Total 1380 Balance 1380 Intake: Oral 1380 Other: # Voids 2 # Bowel Movements 1 Active Medications: Current Medications Acetaminophen (Tylenol) 650 mg PO Q4HR PRN PRN Reason: Mild Pain / Temp above 100 Stop: 09/06/17 18:47 Al Hydrox/Mg Hydrox/Simethicone (Maalox) 30 ml PO Q4HR PRN PRN Reason: GI DISTRESS Stop: 09/06/17 18:47 Divalproex Sodium (Depakote Dr) 250 mg PO BID KATHIE PRN Reason: Protocol Stop: 09/08/17 16:59 Last Admin: 07/13/17 08:13 Dose: 250 mg Loratadine (Claritin) 10 mg PO DAILY PRN PRN Reason: Allergy Symptoms Stop: 09/10/17 08:46 Lorazepam (Ativan) 0.5 mg PO Q4HR PRN; Protocol PRN Reason: Agitation Stop: 08/07/17 18:47 Last Admin: 07/10/17 08:05 Dose: 0.5 mg Magnesium Hydroxide (Milk Of Magnesia) 30 ml PO HS PRN PRN Reason: Constipation Multivitamins/Vitamin C (Theragran) 1 tab PO DAILY KATHIE Stop: 09/07/17 08:59 Last Admin: 07/13/17 08:14 Dose: 1 tab Risperidone (Risperdal) 3 mg PO DAILY KATHIE PRN Reason: Protocol Stop: 09/08/17 12:10 Last Admin: 07/13/17 08:14 Dose: 3 mg Zolpidem Tartrate (Ambien) 5 mg PO HS PRN PRN Reason: Insomnia Stop: 09/06/17 18:47 Last Admin: 07/12/17 21:42 Dose: 5 mg General: Alert, No acute distress HEENT: Atraumatic, PERRLA Cardiovascular: Regular rate Lungs: Clear to auscultation Abdomen: Bowel sounds, Soft Extremities: Other (No edema) Neurological: Normal gait Skin: Other (Warm and dry) Psych/Mental Status: Other (Confused, not oriented) Assessment/Plan - Assessment Assessment: Patient is awake, alert, agitated at moments. DX: Psychosis, HTN. - Plan Plan: Patient is under Psychiatric care, continue with SNF meds. Will continue to monitor.
--- NOTE | 2017-07-13 23:41 | Progress Notes ---
DATE: 07/13/[address] Berry. SUBJECTIVE: Case was discussed with the staff of the patient and reviewed records. This is a 57-year-old male who was admitted on 07/09/2017 because of having thoughts of wanting to harm a cousin, believed he was the "[place]." He believed that his cousin is son of alfred and that the patient was the "[place]" and there is a montelongo that is going to ensue that he wants his cousin to come to the hospital, so he can montelongo his cousin. The patient continues to hear voices, continues to be unpredictable and impulsive, though the voices he reported are not command, but he is easily agitated, irritable. He is on Risperdal 3 mg daily and Depakote 250 mg twice a day. He continues to be unpredictable, impulsive, needing redirection. PLAN: I am increasing the dose of Risperdal to 4 mg daily and check his Depakote level to see if he is taking medication, swallowing it and also if it is an adequate dose and so far no side effects with the medication, no sedation, no nausea, no extrapyramidal symptoms and we will continue to work the patient in group therapy, milieu therapy, adjust medication as needed. JOB# [id number]
[2017-07-14] MEDS: Multivitamin Tab PO SCH (08:11)
--- NOTE | 2017-07-14 08:58 | General Progress Note ---
Subjective - Review of Systems Service Date: 07/14/17 Subjective: I fell better. Objective - Results Result Diagrams: 07/08/17 16:44 07/08/17 16:44 Recent Labs: Laboratory Last Values WBC 7.1 Th/cmm (4.8-10.8) 07/08/17 16:44 RBC 4.67 Mil/cmm (4.30-5.70) 07/08/17 16:44 Hgb 14.2 gm/dL (12-16) 07/08/17 16:44 Hct 42.7 % (41.0-60) 07/08/17 16:44 MCV 91.4 fl (80-99) 07/08/17 16:44 MCH 30.4 pg (26.0-30.0) H 07/08/17 16:44 MCHC Differential 33.3 pg (28.0-36.0) 07/08/17 16:44 RDW 12.3 % (11.5-20.0) 07/08/17 16:44 Plt Count 288 Th/cmm (150-400) 07/08/17 16:44 MPV 7.0 fl 07/08/17 16:44 Neutrophils % 55.9 % (40.0-80.0) 07/08/17 16:44 Lymphocytes % 26.2 % (20.0-50.0) 07/08/17 16:44 Monocytes % 10.9 % (2.0-10.0) H 07/08/17 16:44 Eosinophils % 6.9 % (0.0-5.0) H 07/08/17 16:44 Basophils % 0.1 % (0.0-2.0) 07/08/17 16:44 Sodium 138 mEq/L (136-145) 07/08/17 16:44 Potassium 4.6 mEq/L (3.5-5.1) 07/08/17 16:44 Chloride 105 mEq/L (98-107) 07/08/17 16:44 Carbon Dioxide 29.3 mEq/L (21.0-31.0) 07/08/17 16:44 Anion Gap 8.3 (7.0-16.0) 07/08/17 16:44 BUN 17 mg/dL (7-25) 07/08/17 16:44 Creatinine 1.0 mg/dL (0.7-1.3) 07/08/17 16:44 Est GFR ( Amer) > 60.0 ml/min (>90) 07/08/17 16:44 Est GFR (Non-Af Amer) > 60.0 ml/min 07/08/17 16:44 BUN/Creatinine Ratio 17.0 07/08/17 16:44 Glucose 109 mg/dL (70-105) H 07/08/17 16:44 Hemoglobin A1c % 5.5 % (4.0-6.0) 07/08/17 16:44 Calcium 10.2 mg/dL (8.6-10.3) 07/08/17 16:44 Total Bilirubin 0.5 mg/dL (0.3-1.0) 07/08/17 16:44 AST 14 U/L (13-39) 07/08/17 16:44 ALT 14 U/L (7-52) 07/08/17 16:44 Alkaline Phosphatase 68 U/L (34-104) 07/08/17 16:44 Total Protein 6.9 gm/dL (6.0-8.3) 07/08/17 16:44 Albumin 4.0 gm/dL (4.2-5.5) L 07/08/17 16:44 Globulin 2.9 gm/dL 07/08/17 16:44 Albumin/Globulin Ratio 1.4 (1.0-1.8) 07/08/17 16:44 Triglycerides 86 mg/dL (<150) 07/08/17 16:44 Cholesterol 160 mg/dL (<200) 07/08/17 16:44 LDL Cholesterol Direct 100 mg/dL (75-193) 07/08/17 16:44 HDL Cholesterol 47 mg/dL (23-92) 07/08/17 16:44 TSH 0.44 uIU/ml (0.34-5.60) 07/08/17 16:44 Urine Source CLEAN C 07/08/17 16:00 Urine Color YELLOW 07/08/17 16:00 Urine Clarity CLEAR (CLEAR) 07/08/17 16:00 Urine pH 7.0 (4.6 - 8.0) 07/08/17 16:00 Ur Specific [place] 1.020 (1.005-1.030) 07/08/17 16:00 Urine Protein NEGATIVE mg/dL (NEGATIVE) 07/08/17 16:00 Urine Glucose (UA) NEGATIVE mg/dL (NEGATIVE) 07/08/17 16:00 Urine Ketones NEGATIVE mg/dL (NEGATIVE) 07/08/17 16:00 Urine Blood NEGATIVE (NEGATIVE) 07/08/17 16:00 Urine Nitrate NEGATIVE (NEGATIVE) 07/08/17 16:00 Urine Bilirubin NEGATIVE (NEGATIVE) 07/08/17 16:00 Urine Urobilinogen 0.2 E.U./dL (0.2 - 1.0) 07/08/17 16:00 Ur Leukocyte Esterase NEGATIVE (NEGATIVE) 07/08/17 16:00 Urine RBC NONE SEEN /hpf (0-5) 07/08/17 16:00 Urine WBC NONE SEEN /hpf (0-5) 07/08/17 16:00 Ur Epithelial Cells NONE SEEN /lpf (FEW) 07/08/17 16:00 Urine Bacteria NONE SEEN /hpf (NONE SEEN) 07/08/17 16:00 Salicylates < 25.0 mg/L (30.0-100.0) L 07/08/17 16:44 Urine Opiates Screen NEGATIVE (NEGATIVE) 07/08/17 16:00 Urine Methadone Screen NEGATIVE (NEGATIVE) 07/08/17 16:00 Acetaminophen < 10.0 ug/mL (10.0-30.0) L 07/08/17 16:44 Ur Barbiturates Screen NEGATIVE (NEGATIVE) 07/08/17 16:00 Valproic Acid < 10.0 ug/mL (50.0-100.0) L 07/13/17 12:20 Ur Tricyclics Screen NEGATIVE (NEGATIVE) 07/08/17 16:00 Ur Phencyclidine Scrn NEGATIVE (NEGATIVE) 07/08/17 16:00 Amphetamines Screen NEGATIVE (NEGATIVE) 07/08/17 16:00 U Methamphetamines Scrn NEGATIVE (NEGATIVE) 07/08/17 16:00 U Benzodiazepines Scrn NEGATIVE (NEGATIVE) 07/08/17 16:00 U Cocaine Metab Screen NEGATIVE (NEGATIVE) 07/08/17 16:00 U Cannabinoids Screen POSITIVE (NEGATIVE) H 07/08/17 16:00 Ethyl Alcohol < 10 mg/dL (0-10) 07/08/17 16:44 RPR NONREACTIVE (NONREACTIVE) 07/08/17 16:44 - Physical Exam Vitals and I&O: Vital Signs Temp 97.9 F 07/14/17 06:22 Pulse 89 07/14/17 06:22 Resp 20 07/14/17 06:22 BP 132/87 07/14/17 06:22 Pulse Ox 97 07/14/17 06:22 Intake & Output 07/13/17 07/14/17 07/14/17 18:59 06:59 18:59 Intake Total 1300 120 Balance 1300 120 Intake: Oral 1300 120 Other: # Voids 4 3 # Bowel Movements 2 1 Active Medications: Current Medications Acetaminophen (Tylenol) 650 mg PO Q4HR PRN PRN Reason: Mild Pain / Temp above 100 Stop: 09/06/17 18:47 Al Hydrox/Mg Hydrox/Simethicone (Maalox) 30 ml PO Q4HR PRN PRN Reason: GI DISTRESS Stop: 09/06/17 18:47 Divalproex Sodium (Depakote Dr) 250 mg PO BID KATHIE PRN Reason: Protocol Stop: 09/08/17 16:59 Last Admin: 07/14/17 08:11 Dose: 250 mg Loratadine (Claritin) 10 mg PO DAILY PRN PRN Reason: Allergy Symptoms Stop: 09/10/17 08:46 Lorazepam (Ativan) 0.5 mg PO Q4HR PRN; Protocol PRN Reason: Agitation Stop: 08/07/17 18:47 Last Admin: 07/10/17 08:05 Dose: 0.5 mg Magnesium Hydroxide (Milk Of Magnesia) 30 ml PO HS PRN PRN Reason: Constipation Multivitamins/Vitamin C (Theragran) 1 tab PO DAILY KATHIE Stop: 09/07/17 08:59 Last Admin: 07/14/17 08:11 Dose: 1 tab Risperidone (Risperdal) 4 mg PO DAILY KATHIE PRN Reason: Protocol Stop: 09/12/17 08:59 Last Admin: 07/14/17 08:11 Dose: 4 mg Zolpidem Tartrate (Ambien) 5 mg PO HS PRN PRN Reason: Insomnia Stop: 09/06/17 18:47 Last Admin: 07/12/17 21:42 Dose: 5 mg General: Alert, No acute distress HEENT: Atraumatic, PERRLA Cardiovascular: Regular rate Lungs: Clear to auscultation Abdomen: Bowel sounds, Soft Extremities: Other (No edema) Neurological: Normal gait Skin: Other (Warm and dry) Psych/Mental Status: Other (Confused, not oriented) Assessment/Plan - Assessment Assessment: Patient is awake, alert, agitated at moments. DX: Psychosis, HTN. - Plan Plan: Patient is under Psychiatric care, continue with SNF meds. Will continue to monitor.
[2017-07-14] MEDS ORDERED: risperiDONE 4 mg Tab PO SCH (09:00)
--- NOTE | 2017-07-14 21:50 | Progress Notes ---
DATE: 07/14/2017 SUBJECTIVE: Case was discussed with staff of the patient and reviewed records. The patient continues to be unpredictable, impulsive, responding to internal stimuli. He continues to report that he wants to kill his brother and I discussed this with Jonas, the charge nurse who is in-charge of the unit as well. I asked him to make sure that there is ____ on that that they need to notify his brother. PLAN: I did increase his Risperdal dose yesterday to 4 mg at bedtime. No side effects, no sedation, no nausea, no extrapyramidal symptoms. He is still high risk with his homicidal ideation and psychosis. His Depakote level will need to be checked and we will continue to work with the patient in group therapy, milieu therapy, adjust the medication as needed. JOB# [id number]
[2017-07-15] MEDS ORDERED: risperiDONE 4 mg Tab PO SCH (07:51)
[2017-07-15] MEDS: Multivitamin Tab PO SCH (08:49)
[2017-07-15] MEDS: RISPERIDONE PO SCH (08:49)
--- NOTE | 2017-07-15 09:22 | General Progress Note ---
Subjective - Review of Systems Service Date: 07/15/17 Subjective: I fell better. Objective - Results Result Diagrams: 07/08/17 16:44 07/08/17 16:44 Recent Labs: Laboratory Last Values WBC 7.1 Th/cmm (4.8-10.8) 07/08/17 16:44 RBC 4.67 Mil/cmm (4.30-5.70) 07/08/17 16:44 Hgb 14.2 gm/dL (12-16) 07/08/17 16:44 Hct 42.7 % (41.0-60) 07/08/17 16:44 MCV 91.4 fl (80-99) 07/08/17 16:44 MCH 30.4 pg (26.0-30.0) H 07/08/17 16:44 MCHC Differential 33.3 pg (28.0-36.0) 07/08/17 16:44 RDW 12.3 % (11.5-20.0) 07/08/17 16:44 Plt Count 288 Th/cmm (150-400) 07/08/17 16:44 MPV 7.0 fl 07/08/17 16:44 Neutrophils % 55.9 % (40.0-80.0) 07/08/17 16:44 Lymphocytes % 26.2 % (20.0-50.0) 07/08/17 16:44 Monocytes % 10.9 % (2.0-10.0) H 07/08/17 16:44 Eosinophils % 6.9 % (0.0-5.0) H 07/08/17 16:44 Basophils % 0.1 % (0.0-2.0) 07/08/17 16:44 Sodium 138 mEq/L (136-145) 07/08/17 16:44 Potassium 4.6 mEq/L (3.5-5.1) 07/08/17 16:44 Chloride 105 mEq/L (98-107) 07/08/17 16:44 Carbon Dioxide 29.3 mEq/L (21.0-31.0) 07/08/17 16:44 Anion Gap 8.3 (7.0-16.0) 07/08/17 16:44 BUN 17 mg/dL (7-25) 07/08/17 16:44 Creatinine 1.0 mg/dL (0.7-1.3) 07/08/17 16:44 Est GFR ( Amer) > 60.0 ml/min (>90) 07/08/17 16:44 Est GFR (Non-Af Amer) > 60.0 ml/min 07/08/17 16:44 BUN/Creatinine Ratio 17.0 07/08/17 16:44 Glucose 109 mg/dL (70-105) H 07/08/17 16:44 Hemoglobin A1c % 5.5 % (4.0-6.0) 07/08/17 16:44 Calcium 10.2 mg/dL (8.6-10.3) 07/08/17 16:44 Total Bilirubin 0.5 mg/dL (0.3-1.0) 07/08/17 16:44 AST 14 U/L (13-39) 07/08/17 16:44 ALT 14 U/L (7-52) 07/08/17 16:44 Alkaline Phosphatase 68 U/L (34-104) 07/08/17 16:44 Total Protein 6.9 gm/dL (6.0-8.3) 07/08/17 16:44 Albumin 4.0 gm/dL (4.2-5.5) L 07/08/17 16:44 Globulin 2.9 gm/dL 07/08/17 16:44 Albumin/Globulin Ratio 1.4 (1.0-1.8) 07/08/17 16:44 Triglycerides 86 mg/dL (<150) 07/08/17 16:44 Cholesterol 160 mg/dL (<200) 07/08/17 16:44 LDL Cholesterol Direct 100 mg/dL (75-193) 07/08/17 16:44 HDL Cholesterol 47 mg/dL (23-92) 07/08/17 16:44 TSH 0.44 uIU/ml (0.34-5.60) 07/08/17 16:44 Urine Source CLEAN C 07/08/17 16:00 Urine Color YELLOW 07/08/17 16:00 Urine Clarity CLEAR (CLEAR) 07/08/17 16:00 Urine pH 7.0 (4.6 - 8.0) 07/08/17 16:00 Ur Specific [place] 1.020 (1.005-1.030) 07/08/17 16:00 Urine Protein NEGATIVE mg/dL (NEGATIVE) 07/08/17 16:00 Urine Glucose (UA) NEGATIVE mg/dL (NEGATIVE) 07/08/17 16:00 Urine Ketones NEGATIVE mg/dL (NEGATIVE) 07/08/17 16:00 Urine Blood NEGATIVE (NEGATIVE) 07/08/17 16:00 Urine Nitrate NEGATIVE (NEGATIVE) 07/08/17 16:00 Urine Bilirubin NEGATIVE (NEGATIVE) 07/08/17 16:00 Urine Urobilinogen 0.2 E.U./dL (0.2 - 1.0) 07/08/17 16:00 Ur Leukocyte Esterase NEGATIVE (NEGATIVE) 07/08/17 16:00 Urine RBC NONE SEEN /hpf (0-5) 07/08/17 16:00 Urine WBC NONE SEEN /hpf (0-5) 07/08/17 16:00 Ur Epithelial Cells NONE SEEN /lpf (FEW) 07/08/17 16:00 Urine Bacteria NONE SEEN /hpf (NONE SEEN) 07/08/17 16:00 Salicylates < 25.0 mg/L (30.0-100.0) L 07/08/17 16:44 Urine Opiates Screen NEGATIVE (NEGATIVE) 07/08/17 16:00 Urine Methadone Screen NEGATIVE (NEGATIVE) 07/08/17 16:00 Acetaminophen < 10.0 ug/mL (10.0-30.0) L 07/08/17 16:44 Ur Barbiturates Screen NEGATIVE (NEGATIVE) 07/08/17 16:00 Valproic Acid < 10.0 ug/mL (50.0-100.0) L 07/14/17 12:31 Ur Tricyclics Screen NEGATIVE (NEGATIVE) 07/08/17 16:00 Ur Phencyclidine Scrn NEGATIVE (NEGATIVE) 07/08/17 16:00 Amphetamines Screen NEGATIVE (NEGATIVE) 07/08/17 16:00 U Methamphetamines Scrn NEGATIVE (NEGATIVE) 07/08/17 16:00 U Benzodiazepines Scrn NEGATIVE (NEGATIVE) 07/08/17 16:00 U Cocaine Metab Screen NEGATIVE (NEGATIVE) 07/08/17 16:00 U Cannabinoids Screen POSITIVE (NEGATIVE) H 07/08/17 16:00 Ethyl Alcohol < 10 mg/dL (0-10) 07/08/17 16:44 RPR NONREACTIVE (NONREACTIVE) 07/08/17 16:44 - Physical Exam Vitals and I&O: Vital Signs Temp 97 F 07/15/17 06:37 Pulse 75 07/15/17 06:37 Resp 20 07/15/17 06:37 BP 121/67 07/15/17 06:37 Pulse Ox 98 07/15/17 06:37 Intake & Output 07/14/17 07/15/17 07/15/17 18:59 06:59 18:59 Intake Total 1300 120 Balance 1300 120 Intake: Oral 1300 120 Other: # Voids 3 3 # Bowel Movements 1 Active Medications: Current Medications Acetaminophen (Tylenol) 650 mg PO Q4HR PRN PRN Reason: Mild Pain / Temp above 100 Stop: 09/06/17 18:47 Al Hydrox/Mg Hydrox/Simethicone (Maalox) 30 ml PO Q4HR PRN PRN Reason: GI DISTRESS Stop: 09/06/17 18:47 Divalproex Sodium (Depakote Dr) 500 mg PO BID KATHIE PRN Reason: Protocol Stop: 09/12/17 16:59 Last Admin: 07/15/17 08:48 Dose: 500 mg Loratadine (Claritin) 10 mg PO DAILY PRN PRN Reason: Allergy Symptoms Stop: 09/10/17 08:46 Lorazepam (Ativan) 0.5 mg PO Q4HR PRN; Protocol PRN Reason: Agitation Stop: 08/07/17 18:47 Last Admin: 07/10/17 08:05 Dose: 0.5 mg Magnesium Hydroxide (Milk Of Magnesia) 30 ml PO HS PRN PRN Reason: Constipation Multivitamins/Vitamin C (Theragran) 1 tab PO DAILY KATHIE Stop: 09/07/17 08:59 Last Admin: 07/15/17 08:49 Dose: 1 tab Risperidone 4 mg/ Risperidone (1 mg) 5 mg PO DAILY KATHIE Stop: 09/13/17 08:59 Last Admin: 07/15/17 08:49 Dose: 5 mg Zolpidem Tartrate (Ambien) 5 mg PO HS PRN PRN Reason: Insomnia Stop: 09/06/17 18:47 Last Admin: 07/14/17 22:05 Dose: 5 mg General: Alert, No acute distress HEENT: Atraumatic, PERRLA Cardiovascular: Regular rate Lungs: Clear to auscultation Abdomen: Bowel sounds, Soft Extremities: Other (No edema) Neurological: Normal gait Skin: Other (Warm and dry) Psych/Mental Status: Other (Confused, not oriented) Assessment/Plan - Assessment Assessment: Patient is awake, alert, agitated at moments. DX: Psychosis, HTN. - Plan Plan: Patient is under Psychiatric care, continue with SNF meds. Will continue to monitor.
--- NOTE | 2017-07-16 00:54 | Progress Notes ---
DATE: 07/15/[address] Eason. SUBJECTIVE: Case was discussed with the staff of the patient. The patient continues to report hearing voices consist reportedly want to kill his cousin. Continues to be unpredictable, impulsive, needing redirection. I discussed with Jonas yesterday telling a Tarasoff has been done. He is sleeping well, eating well. I did increase Risperdal to 4 mg today. I will increase it further to 5 mg to help with the hallucination and we will continue the patient in group therapy, milieu therapy, and adjust medication as needed. JOB# [id number]
[2017-07-16] MEDS: Multivitamin Tab PO SCH (08:27)
[2017-07-16] MEDS: RISPERIDONE PO SCH (08:28)
--- NOTE | 2017-07-16 10:01 | General Progress Note ---
Subjective - Review of Systems Service Date: 07/16/17 Subjective: I fell better. Objective - Results Result Diagrams: 07/08/17 16:44 07/08/17 16:44 Recent Labs: Laboratory Last Values WBC 7.1 Th/cmm (4.8-10.8) 07/08/17 16:44 RBC 4.67 Mil/cmm (4.30-5.70) 07/08/17 16:44 Hgb 14.2 gm/dL (12-16) 07/08/17 16:44 Hct 42.7 % (41.0-60) 07/08/17 16:44 MCV 91.4 fl (80-99) 07/08/17 16:44 MCH 30.4 pg (26.0-30.0) H 07/08/17 16:44 MCHC Differential 33.3 pg (28.0-36.0) 07/08/17 16:44 RDW 12.3 % (11.5-20.0) 07/08/17 16:44 Plt Count 288 Th/cmm (150-400) 07/08/17 16:44 MPV 7.0 fl 07/08/17 16:44 Neutrophils % 55.9 % (40.0-80.0) 07/08/17 16:44 Lymphocytes % 26.2 % (20.0-50.0) 07/08/17 16:44 Monocytes % 10.9 % (2.0-10.0) H 07/08/17 16:44 Eosinophils % 6.9 % (0.0-5.0) H 07/08/17 16:44 Basophils % 0.1 % (0.0-2.0) 07/08/17 16:44 Sodium 138 mEq/L (136-145) 07/08/17 16:44 Potassium 4.6 mEq/L (3.5-5.1) 07/08/17 16:44 Chloride 105 mEq/L (98-107) 07/08/17 16:44 Carbon Dioxide 29.3 mEq/L (21.0-31.0) 07/08/17 16:44 Anion Gap 8.3 (7.0-16.0) 07/08/17 16:44 BUN 17 mg/dL (7-25) 07/08/17 16:44 Creatinine 1.0 mg/dL (0.7-1.3) 07/08/17 16:44 Est GFR ( Amer) > 60.0 ml/min (>90) 07/08/17 16:44 Est GFR (Non-Af Amer) > 60.0 ml/min 07/08/17 16:44 BUN/Creatinine Ratio 17.0 07/08/17 16:44 Glucose 109 mg/dL (70-105) H 07/08/17 16:44 Hemoglobin A1c % 5.5 % (4.0-6.0) 07/08/17 16:44 Calcium 10.2 mg/dL (8.6-10.3) 07/08/17 16:44 Total Bilirubin 0.5 mg/dL (0.3-1.0) 07/08/17 16:44 AST 14 U/L (13-39) 07/08/17 16:44 ALT 14 U/L (7-52) 07/08/17 16:44 Alkaline Phosphatase 68 U/L (34-104) 07/08/17 16:44 Total Protein 6.9 gm/dL (6.0-8.3) 07/08/17 16:44 Albumin 4.0 gm/dL (4.2-5.5) L 07/08/17 16:44 Globulin 2.9 gm/dL 07/08/17 16:44 Albumin/Globulin Ratio 1.4 (1.0-1.8) 07/08/17 16:44 Triglycerides 86 mg/dL (<150) 07/08/17 16:44 Cholesterol 160 mg/dL (<200) 07/08/17 16:44 LDL Cholesterol Direct 100 mg/dL (75-193) 07/08/17 16:44 HDL Cholesterol 47 mg/dL (23-92) 07/08/17 16:44 TSH 0.44 uIU/ml (0.34-5.60) 07/08/17 16:44 Urine Source CLEAN C 07/08/17 16:00 Urine Color YELLOW 07/08/17 16:00 Urine Clarity CLEAR (CLEAR) 07/08/17 16:00 Urine pH 7.0 (4.6 - 8.0) 07/08/17 16:00 Ur Specific [place] 1.020 (1.005-1.030) 07/08/17 16:00 Urine Protein NEGATIVE mg/dL (NEGATIVE) 07/08/17 16:00 Urine Glucose (UA) NEGATIVE mg/dL (NEGATIVE) 07/08/17 16:00 Urine Ketones NEGATIVE mg/dL (NEGATIVE) 07/08/17 16:00 Urine Blood NEGATIVE (NEGATIVE) 07/08/17 16:00 Urine Nitrate NEGATIVE (NEGATIVE) 07/08/17 16:00 Urine Bilirubin NEGATIVE (NEGATIVE) 07/08/17 16:00 Urine Urobilinogen 0.2 E.U./dL (0.2 - 1.0) 07/08/17 16:00 Ur Leukocyte Esterase NEGATIVE (NEGATIVE) 07/08/17 16:00 Urine RBC NONE SEEN /hpf (0-5) 07/08/17 16:00 Urine WBC NONE SEEN /hpf (0-5) 07/08/17 16:00 Ur Epithelial Cells NONE SEEN /lpf (FEW) 07/08/17 16:00 Urine Bacteria NONE SEEN /hpf (NONE SEEN) 07/08/17 16:00 Salicylates < 25.0 mg/L (30.0-100.0) L 07/08/17 16:44 Urine Opiates Screen NEGATIVE (NEGATIVE) 07/08/17 16:00 Urine Methadone Screen NEGATIVE (NEGATIVE) 07/08/17 16:00 Acetaminophen < 10.0 ug/mL (10.0-30.0) L 07/08/17 16:44 Ur Barbiturates Screen NEGATIVE (NEGATIVE) 07/08/17 16:00 Valproic Acid < 10.0 ug/mL (50.0-100.0) L 07/14/17 12:31 Ur Tricyclics Screen NEGATIVE (NEGATIVE) 07/08/17 16:00 Ur Phencyclidine Scrn NEGATIVE (NEGATIVE) 07/08/17 16:00 Amphetamines Screen NEGATIVE (NEGATIVE) 07/08/17 16:00 U Methamphetamines Scrn NEGATIVE (NEGATIVE) 07/08/17 16:00 U Benzodiazepines Scrn NEGATIVE (NEGATIVE) 07/08/17 16:00 U Cocaine Metab Screen NEGATIVE (NEGATIVE) 07/08/17 16:00 U Cannabinoids Screen POSITIVE (NEGATIVE) H 07/08/17 16:00 Ethyl Alcohol < 10 mg/dL (0-10) 07/08/17 16:44 RPR NONREACTIVE (NONREACTIVE) 07/08/17 16:44 - Physical Exam Vitals and I&O: Vital Signs Temp 97.9 F 07/16/17 06:42 Pulse 78 07/16/17 06:42 Resp 20 07/16/17 06:42 BP 101/60 07/16/17 06:42 Pulse Ox 98 07/16/17 06:42 Intake & Output 07/15/17 07/16/17 07/16/17 18:59 06:59 18:59 Intake Total 1900 Balance 1900 Intake: Oral 1900 Other: # Voids 3 # Bowel Movements 1 Stool Characteristics Soft Active Medications: Current Medications Acetaminophen (Tylenol) 650 mg PO Q4HR PRN PRN Reason: Mild Pain / Temp above 100 Stop: 09/06/17 18:47 Al Hydrox/Mg Hydrox/Simethicone (Maalox) 30 ml PO Q4HR PRN PRN Reason: GI DISTRESS Stop: 09/06/17 18:47 Divalproex Sodium (Depakote Dr) 500 mg PO BID KATHIE PRN Reason: Protocol Stop: 09/12/17 16:59 Last Admin: 07/16/17 08:27 Dose: 500 mg Loratadine (Claritin) 10 mg PO DAILY PRN PRN Reason: Allergy Symptoms Stop: 09/10/17 08:46 Lorazepam (Ativan) 0.5 mg PO Q4HR PRN; Protocol PRN Reason: Agitation Stop: 08/07/17 18:47 Last Admin: 07/10/17 08:05 Dose: 0.5 mg Magnesium Hydroxide (Milk Of Magnesia) 30 ml PO HS PRN PRN Reason: Constipation Multivitamins/Vitamin C (Theragran) 1 tab PO DAILY KATHIE Stop: 09/07/17 08:59 Last Admin: 07/16/17 08:27 Dose: 1 tab Risperidone 4 mg/ Risperidone (1 mg) 5 mg PO DAILY KATHIE Stop: 09/13/17 08:59 Last Admin: 07/16/17 08:28 Dose: 5 mg Zolpidem Tartrate (Ambien) 5 mg PO HS PRN PRN Reason: Insomnia Stop: 09/06/17 18:47 Last Admin: 07/15/17 21:20 Dose: 5 mg General: Alert, No acute distress HEENT: Atraumatic, PERRLA Cardiovascular: Regular rate Lungs: Clear to auscultation Abdomen: Bowel sounds, Soft Extremities: Other (No edema) Neurological: Normal gait Skin: Other (Warm and dry) Psych/Mental Status: Other (Confused, not oriented) Assessment/Plan - Assessment Assessment: Patient is awake, alert, agitated at moments. DX: Psychosis, HTN. - Plan Plan: Patient is under Psychiatric care, continue with SNF meds. Will continue to monitor. Nutritional Asmnt/Malnutr-PDOC - Dietary Evaluation Malnutrition Findings (Please click <Entered> for more info): Nutritional Asmnt/Malnutrition Start: 07/15/17 16: 48 Text: Status: Complete Freq: Document 07/15/17 16:54 LCHENG (Rec: 07/15/17 16:57 LCHENG [email or web address]) Nutritional Asmnt/Malnutrition Patient General Information Nutritional Screening Low Risk Diagnosis Homicidal ideation, agitation Pertinent Medical Hx/Surgical Hx CAD, HTN, schizophrenia Subjective Information Per EMR, PO intake 100% of meals. Current Diet Order/ Nutrition Support regualr Pertinent Medications theragran Pertinent Labs 07/08 glucose 109, A1c 5.5, alb 4.0 Nutritional Hx/Data Height 1.68 m Height (Calculated Centimeters) 167.6 Current Weight (lbs) 68.039 kg Weight (Calculated Kilograms) 68.0 Weight (Calculated Grams) 93277.9 [place] Body Weight 142 Body Mass Index (BMI) 24.2 Weight Status Approriate GI Symptoms GI Symptoms None Last BM 07/14 Difficult in: None Skin Integrity/Comment: intact Current %PO Good (75-100%) Estimated Nutritional Goals BEE in Kcals: Using Current wt Calories/Kcals/Kg 25-30 Kcals Calculated [id number] Protein: Using Current wt Protein g/k Protein Calculated 68 Fluid: ml 1700-2040ml (1ml/kcal) Nutritional Problem No current Nutrition Prob Problem N/A Malnutrition Alert Protein-Calorie Malnutrition N/A Is there a minimum of two criteria No selected? Query Text:Check all the applicable criteria. A minimum of two criteria are recommended for diagnosis of either severe or non-severe malnutrition. Intervention/Recommendation Comments 1. Continue with current diet as ordered. 2. Monitor PO intake, wt, labs and skin integrity 3. F/U as low risk in 7ddays, 07/22 Expected Outcomes/Goals Expected Outcomes/Goals 1. PO intake to meet at least 75% of nutritional needs. 2. Wt stability, skin to remain intact, labs to approach WNL.
--- NOTE | 2017-07-16 18:18 | Progress Notes ---
DATE: The patient seen, chart reviewed, discussed with staff. The patient is currently in the hospital, still psychotic, delusional, talking about the [employer], not making any sense, still wanted to kill his [id number] "with my finger." The patient states he will kill him with "love and kindness." The patient with ongoing psychotic symptoms, delusions, grandiosity, states there will be an earthquake in [place] on 07/19/2017 and that is the day he needs to kill his cousin. Staff noting sexually inappropriate behaviors with family, also with other residents. They are continuing to watch him quite closely. ASSESSMENT: The patient remains symptomatic, bizarre, grandiose, still homicidal. PLAN: We will continue to monitor and titrate medications. The patient is still dangerous. JOB# [id number]
[2017-07-17] MEDS: RISPERIDONE PO SCH (08:50)
[2017-07-17] MEDS: Multivitamin Tab PO SCH (08:51)
--- NOTE | 2017-07-17 09:04 | General Progress Note ---
Subjective - Review of Systems Service Date: 07/17/17 Subjective: I fell better. Objective - Results Result Diagrams: 07/08/17 16:44 07/08/17 16:44 Recent Labs: Laboratory Last Values WBC 7.1 Th/cmm (4.8-10.8) 07/08/17 16:44 RBC 4.67 Mil/cmm (4.30-5.70) 07/08/17 16:44 Hgb 14.2 gm/dL (12-16) 07/08/17 16:44 Hct 42.7 % (41.0-60) 07/08/17 16:44 MCV 91.4 fl (80-99) 07/08/17 16:44 MCH 30.4 pg (26.0-30.0) H 07/08/17 16:44 MCHC Differential 33.3 pg (28.0-36.0) 07/08/17 16:44 RDW 12.3 % (11.5-20.0) 07/08/17 16:44 Plt Count 288 Th/cmm (150-400) 07/08/17 16:44 MPV 7.0 fl 07/08/17 16:44 Neutrophils % 55.9 % (40.0-80.0) 07/08/17 16:44 Lymphocytes % 26.2 % (20.0-50.0) 07/08/17 16:44 Monocytes % 10.9 % (2.0-10.0) H 07/08/17 16:44 Eosinophils % 6.9 % (0.0-5.0) H 07/08/17 16:44 Basophils % 0.1 % (0.0-2.0) 07/08/17 16:44 Sodium 138 mEq/L (136-145) 07/08/17 16:44 Potassium 4.6 mEq/L (3.5-5.1) 07/08/17 16:44 Chloride 105 mEq/L (98-107) 07/08/17 16:44 Carbon Dioxide 29.3 mEq/L (21.0-31.0) 07/08/17 16:44 Anion Gap 8.3 (7.0-16.0) 07/08/17 16:44 BUN 17 mg/dL (7-25) 07/08/17 16:44 Creatinine 1.0 mg/dL (0.7-1.3) 07/08/17 16:44 Est GFR ( Amer) > 60.0 ml/min (>90) 07/08/17 16:44 Est GFR (Non-Af Amer) > 60.0 ml/min 07/08/17 16:44 BUN/Creatinine Ratio 17.0 07/08/17 16:44 Glucose 109 mg/dL (70-105) H 07/08/17 16:44 Hemoglobin A1c % 5.5 % (4.0-6.0) 07/08/17 16:44 Calcium 10.2 mg/dL (8.6-10.3) 07/08/17 16:44 Total Bilirubin 0.5 mg/dL (0.3-1.0) 07/08/17 16:44 AST 14 U/L (13-39) 07/08/17 16:44 ALT 14 U/L (7-52) 07/08/17 16:44 Alkaline Phosphatase 68 U/L (34-104) 07/08/17 16:44 Total Protein 6.9 gm/dL (6.0-8.3) 07/08/17 16:44 Albumin 4.0 gm/dL (4.2-5.5) L 07/08/17 16:44 Globulin 2.9 gm/dL 07/08/17 16:44 Albumin/Globulin Ratio 1.4 (1.0-1.8) 07/08/17 16:44 Triglycerides 86 mg/dL (<150) 07/08/17 16:44 Cholesterol 160 mg/dL (<200) 07/08/17 16:44 LDL Cholesterol Direct 100 mg/dL (75-193) 07/08/17 16:44 HDL Cholesterol 47 mg/dL (23-92) 07/08/17 16:44 TSH 0.44 uIU/ml (0.34-5.60) 07/08/17 16:44 Urine Source CLEAN C 07/08/17 16:00 Urine Color YELLOW 07/08/17 16:00 Urine Clarity CLEAR (CLEAR) 07/08/17 16:00 Urine pH 7.0 (4.6 - 8.0) 07/08/17 16:00 Ur Specific [place] 1.020 (1.005-1.030) 07/08/17 16:00 Urine Protein NEGATIVE mg/dL (NEGATIVE) 07/08/17 16:00 Urine Glucose (UA) NEGATIVE mg/dL (NEGATIVE) 07/08/17 16:00 Urine Ketones NEGATIVE mg/dL (NEGATIVE) 07/08/17 16:00 Urine Blood NEGATIVE (NEGATIVE) 07/08/17 16:00 Urine Nitrate NEGATIVE (NEGATIVE) 07/08/17 16:00 Urine Bilirubin NEGATIVE (NEGATIVE) 07/08/17 16:00 Urine Urobilinogen 0.2 E.U./dL (0.2 - 1.0) 07/08/17 16:00 Ur Leukocyte Esterase NEGATIVE (NEGATIVE) 07/08/17 16:00 Urine RBC NONE SEEN /hpf (0-5) 07/08/17 16:00 Urine WBC NONE SEEN /hpf (0-5) 07/08/17 16:00 Ur Epithelial Cells NONE SEEN /lpf (FEW) 07/08/17 16:00 Urine Bacteria NONE SEEN /hpf (NONE SEEN) 07/08/17 16:00 Salicylates < 25.0 mg/L (30.0-100.0) L 07/08/17 16:44 Urine Opiates Screen NEGATIVE (NEGATIVE) 07/08/17 16:00 Urine Methadone Screen NEGATIVE (NEGATIVE) 07/08/17 16:00 Acetaminophen < 10.0 ug/mL (10.0-30.0) L 07/08/17 16:44 Ur Barbiturates Screen NEGATIVE (NEGATIVE) 07/08/17 16:00 Valproic Acid < 10.0 ug/mL (50.0-100.0) L 07/14/17 12:31 Ur Tricyclics Screen NEGATIVE (NEGATIVE) 07/08/17 16:00 Ur Phencyclidine Scrn NEGATIVE (NEGATIVE) 07/08/17 16:00 Amphetamines Screen NEGATIVE (NEGATIVE) 07/08/17 16:00 U Methamphetamines Scrn NEGATIVE (NEGATIVE) 07/08/17 16:00 U Benzodiazepines Scrn NEGATIVE (NEGATIVE) 07/08/17 16:00 U Cocaine Metab Screen NEGATIVE (NEGATIVE) 07/08/17 16:00 U Cannabinoids Screen POSITIVE (NEGATIVE) H 07/08/17 16:00 Ethyl Alcohol < 10 mg/dL (0-10) 07/08/17 16:44 RPR NONREACTIVE (NONREACTIVE) 07/08/17 16:44 - Physical Exam Vitals and I&O: Vital Signs Temp 97.9 F 07/17/17 06:46 Pulse 95 07/17/17 06:46 Resp 20 07/17/17 06:46 BP 132/76 07/17/17 06:46 Pulse Ox 100 07/17/17 06:46 Intake & Output 07/16/17 07/17/17 07/17/17 18:59 06:59 18:59 Intake Total 1300 320 Balance 1300 320 Intake: Oral 1300 320 Other: # Voids 3 1 # Bowel Movements 1 Stool Characteristics Soft Active Medications: Current Medications Acetaminophen (Tylenol) 650 mg PO Q4HR PRN PRN Reason: Mild Pain / Temp above 100 Stop: 09/06/17 18:47 Al Hydrox/Mg Hydrox/Simethicone (Maalox) 30 ml PO Q4HR PRN PRN Reason: GI DISTRESS Stop: 09/06/17 18:47 Divalproex Sodium (Depakote Dr) 500 mg PO BID KATHIE PRN Reason: Protocol Stop: 09/12/17 16:59 Last Admin: 07/17/17 08:50 Dose: 500 mg Loratadine (Claritin) 10 mg PO DAILY PRN PRN Reason: Allergy Symptoms Stop: 09/10/17 08:46 Lorazepam (Ativan) 0.5 mg PO Q4HR PRN; Protocol PRN Reason: Agitation Stop: 08/07/17 18:47 Last Admin: 07/10/17 08:05 Dose: 0.5 mg Magnesium Hydroxide (Milk Of Magnesia) 30 ml PO HS PRN PRN Reason: Constipation Multivitamins/Vitamin C (Theragran) 1 tab PO DAILY KATHIE Stop: 09/07/17 08:59 Last Admin: 07/17/17 08:51 Dose: 1 tab Risperidone 4 mg/ Risperidone (1 mg) 5 mg PO DAILY KATHIE Stop: 09/13/17 08:59 Last Admin: 07/17/17 08:50 Dose: 5 mg Zolpidem Tartrate (Ambien) 5 mg PO HS PRN PRN Reason: Insomnia Stop: 09/06/17 18:47 Last Admin: 07/15/17 21:20 Dose: 5 mg General: Alert, No acute distress HEENT: Atraumatic, PERRLA Cardiovascular: Regular rate Lungs: Clear to auscultation Abdomen: Bowel sounds, Soft Extremities: Other (No edema) Neurological: Normal gait Skin: Other (Warm and dry) Psych/Mental Status: Other (Confused, not oriented) Assessment/Plan - Assessment Assessment: Patient is awake, alert, agitated at moments. DX: Psychosis, HTN. - Plan Plan: Patient is under Psychiatric care, continue with SNF meds. Will continue to monitor. Nutritional Asmnt/Malnutr-PDOC - Dietary Evaluation Malnutrition Findings (Please click <Entered> for more info): Nutritional Asmnt/Malnutrition Start: 07/15/17 16: 48 Text: Status: Complete Freq: Document 07/15/17 16:54 LCHENG (Rec: 07/15/17 16:57 LCHENG [email or web address]) Nutritional Asmnt/Malnutrition Patient General Information Nutritional Screening Low Risk Diagnosis Homicidal ideation, agitation Pertinent Medical Hx/Surgical Hx CAD, HTN, schizophrenia Subjective Information Per EMR, PO intake 100% of meals. Current Diet Order/ Nutrition Support regualr Pertinent Medications theragran Pertinent Labs 07/08 glucose 109, A1c 5.5, alb 4.0 Nutritional Hx/Data Height 1.68 m Height (Calculated Centimeters) 167.6 Current Weight (lbs) 68.039 kg Weight (Calculated Kilograms) 68.0 Weight (Calculated Grams) 41216.9 Bell Body Weight 142 Body Mass Index (BMI) 24.2 Weight Status Approriate GI Symptoms GI Symptoms None Last BM 07/14 Difficult in: None Skin Integrity/Comment: intact Current %PO Good (75-100%) Estimated Nutritional Goals BEE in Kcals: Using Current wt Calories/Kcals/Kg 25-30 Kcals Calculated 4009-5811 Protein: Using Current wt Protein g/k Protein Calculated 68 Fluid: ml 1700-2040ml (1ml/kcal) Nutritional Problem No current Nutrition Prob Problem N/A Malnutrition Alert Protein-Calorie Malnutrition N/A Is there a minimum of two criteria No selected? Query Text:Check all the applicable criteria. A minimum of two criteria are recommended for diagnosis of either severe or non-severe malnutrition. Intervention/Recommendation Comments 1. Continue with current diet as ordered. 2. Monitor PO intake, wt, labs and skin integrity 3. F/U as low risk in 7ddays, 07/22 Expected Outcomes/Goals Expected Outcomes/Goals 1. PO intake to meet at least 75% of nutritional needs. 2. Wt stability, skin to remain intact, labs to approach WNL.
--- NOTE | 2017-07-17 19:05 | Progress Notes ---
DATE: 07/17/2017 The patient in the hospital, still psychotic, delusional, hyper-tenriism, talking about the [employer], states he wants to kill his [id number] "with his finger" with "love and kindness," still bizarre, still talking about an earthquake, making bizarre statements. ASSESSMENT: The patient symptomatic, bizarre, psychotic, homicidal. Medications were noted. PLAN: We will continue to monitor. The patient with ongoing bizarre behaviors. Tolerant to medications. I will be increasing his Risperdal today. JOB# [id number]
[2017-07-18] MEDS: Multivitamin Tab PO SCH (08:26)
[2017-07-18] MEDS: risperiDONE 4 mg Tab PO SCH (08:26)
--- NOTE | 2017-07-18 08:53 | General Progress Note ---
Subjective - Review of Systems Service Date: 07/18/17 Subjective: I fell better. Objective - Results Result Diagrams: 07/08/17 16:44 07/08/17 16:44 Recent Labs: Laboratory Last Values WBC 7.1 Th/cmm (4.8-10.8) 07/08/17 16:44 RBC 4.67 Mil/cmm (4.30-5.70) 07/08/17 16:44 Hgb 14.2 gm/dL (12-16) 07/08/17 16:44 Hct 42.7 % (41.0-60) 07/08/17 16:44 MCV 91.4 fl (80-99) 07/08/17 16:44 MCH 30.4 pg (26.0-30.0) H 07/08/17 16:44 MCHC Differential 33.3 pg (28.0-36.0) 07/08/17 16:44 RDW 12.3 % (11.5-20.0) 07/08/17 16:44 Plt Count 288 Th/cmm (150-400) 07/08/17 16:44 MPV 7.0 fl 07/08/17 16:44 Neutrophils % 55.9 % (40.0-80.0) 07/08/17 16:44 Lymphocytes % 26.2 % (20.0-50.0) 07/08/17 16:44 Monocytes % 10.9 % (2.0-10.0) H 07/08/17 16:44 Eosinophils % 6.9 % (0.0-5.0) H 07/08/17 16:44 Basophils % 0.1 % (0.0-2.0) 07/08/17 16:44 Sodium 138 mEq/L (136-145) 07/08/17 16:44 Potassium 4.6 mEq/L (3.5-5.1) 07/08/17 16:44 Chloride 105 mEq/L (98-107) 07/08/17 16:44 Carbon Dioxide 29.3 mEq/L (21.0-31.0) 07/08/17 16:44 Anion Gap 8.3 (7.0-16.0) 07/08/17 16:44 BUN 17 mg/dL (7-25) 07/08/17 16:44 Creatinine 1.0 mg/dL (0.7-1.3) 07/08/17 16:44 Est GFR ( Amer) > 60.0 ml/min (>90) 07/08/17 16:44 Est GFR (Non-Af Amer) > 60.0 ml/min 07/08/17 16:44 BUN/Creatinine Ratio 17.0 07/08/17 16:44 Glucose 109 mg/dL (70-105) H 07/08/17 16:44 Hemoglobin A1c % 5.5 % (4.0-6.0) 07/08/17 16:44 Calcium 10.2 mg/dL (8.6-10.3) 07/08/17 16:44 Total Bilirubin 0.5 mg/dL (0.3-1.0) 07/08/17 16:44 AST 14 U/L (13-39) 07/08/17 16:44 ALT 14 U/L (7-52) 07/08/17 16:44 Alkaline Phosphatase 68 U/L (34-104) 07/08/17 16:44 Total Protein 6.9 gm/dL (6.0-8.3) 07/08/17 16:44 Albumin 4.0 gm/dL (4.2-5.5) L 07/08/17 16:44 Globulin 2.9 gm/dL 07/08/17 16:44 Albumin/Globulin Ratio 1.4 (1.0-1.8) 07/08/17 16:44 Triglycerides 86 mg/dL (<150) 07/08/17 16:44 Cholesterol 160 mg/dL (<200) 07/08/17 16:44 LDL Cholesterol Direct 100 mg/dL (75-193) 07/08/17 16:44 HDL Cholesterol 47 mg/dL (23-92) 07/08/17 16:44 TSH 0.44 uIU/ml (0.34-5.60) 07/08/17 16:44 Urine Source CLEAN C 07/08/17 16:00 Urine Color YELLOW 07/08/17 16:00 Urine Clarity CLEAR (CLEAR) 07/08/17 16:00 Urine pH 7.0 (4.6 - 8.0) 07/08/17 16:00 Ur Specific [place] 1.020 (1.005-1.030) 07/08/17 16:00 Urine Protein NEGATIVE mg/dL (NEGATIVE) 07/08/17 16:00 Urine Glucose (UA) NEGATIVE mg/dL (NEGATIVE) 07/08/17 16:00 Urine Ketones NEGATIVE mg/dL (NEGATIVE) 07/08/17 16:00 Urine Blood NEGATIVE (NEGATIVE) 07/08/17 16:00 Urine Nitrate NEGATIVE (NEGATIVE) 07/08/17 16:00 Urine Bilirubin NEGATIVE (NEGATIVE) 07/08/17 16:00 Urine Urobilinogen 0.2 E.U./dL (0.2 - 1.0) 07/08/17 16:00 Ur Leukocyte Esterase NEGATIVE (NEGATIVE) 07/08/17 16:00 Urine RBC NONE SEEN /hpf (0-5) 07/08/17 16:00 Urine WBC NONE SEEN /hpf (0-5) 07/08/17 16:00 Ur Epithelial Cells NONE SEEN /lpf (FEW) 07/08/17 16:00 Urine Bacteria NONE SEEN /hpf (NONE SEEN) 07/08/17 16:00 Salicylates < 25.0 mg/L (30.0-100.0) L 07/08/17 16:44 Urine Opiates Screen NEGATIVE (NEGATIVE) 07/08/17 16:00 Urine Methadone Screen NEGATIVE (NEGATIVE) 07/08/17 16:00 Acetaminophen < 10.0 ug/mL (10.0-30.0) L 07/08/17 16:44 Ur Barbiturates Screen NEGATIVE (NEGATIVE) 07/08/17 16:00 Valproic Acid < 10.0 ug/mL (50.0-100.0) L 07/14/17 12:31 Ur Tricyclics Screen NEGATIVE (NEGATIVE) 07/08/17 16:00 Ur Phencyclidine Scrn NEGATIVE (NEGATIVE) 07/08/17 16:00 Amphetamines Screen NEGATIVE (NEGATIVE) 07/08/17 16:00 U Methamphetamines Scrn NEGATIVE (NEGATIVE) 07/08/17 16:00 U Benzodiazepines Scrn NEGATIVE (NEGATIVE) 07/08/17 16:00 U Cocaine Metab Screen NEGATIVE (NEGATIVE) 07/08/17 16:00 U Cannabinoids Screen POSITIVE (NEGATIVE) H 07/08/17 16:00 Ethyl Alcohol < 10 mg/dL (0-10) 07/08/17 16:44 RPR NONREACTIVE (NONREACTIVE) 07/08/17 16:44 - Physical Exam Vitals and I&O: Vital Signs Temp 98 F 07/18/17 06:41 Pulse 81 07/18/17 06:41 Resp 20 07/18/17 06:41 BP 108/57 07/18/17 06:41 Pulse Ox 98 07/18/17 06:41 Intake & Output 07/17/17 07/18/17 07/18/17 18:59 06:59 18:59 Intake Total 1200 720 Balance 1200 720 Intake: Oral 1200 720 Other: # Voids 4 1 # Bowel Movements 1 Stool Characteristics Soft Soft Active Medications: Current Medications Acetaminophen (Tylenol) 650 mg PO Q4HR PRN PRN Reason: Mild Pain / Temp above 100 Stop: 09/06/17 18:47 Al Hydrox/Mg Hydrox/Simethicone (Maalox) 30 ml PO Q4HR PRN PRN Reason: GI DISTRESS Stop: 09/06/17 18:47 Divalproex Sodium (Depakote Dr) 500 mg PO BID KATHIE PRN Reason: Protocol Stop: 09/12/17 16:59 Last Admin: 07/18/17 08:26 Dose: 500 mg Loratadine (Claritin) 10 mg PO DAILY PRN PRN Reason: Allergy Symptoms Stop: 09/10/17 08:46 Lorazepam (Ativan) 0.5 mg PO Q4HR PRN; Protocol PRN Reason: Agitation Stop: 08/07/17 18:47 Last Admin: 07/10/17 08:05 Dose: 0.5 mg Magnesium Hydroxide (Milk Of Magnesia) 30 ml PO HS PRN PRN Reason: Constipation Multivitamins/Vitamin C (Theragran) 1 tab PO DAILY KATHIE Stop: 09/07/17 08:59 Last Admin: 07/18/17 08:26 Dose: 1 tab Risperidone (Risperdal) 6 mg PO DAILY [facility] Stop: 09/15/17 15:55 Last Admin: 07/18/17 08:26 Dose: 6 mg Zolpidem Tartrate (Ambien) 5 mg PO HS PRN PRN Reason: Insomnia Stop: 09/06/17 18:47 Last Admin: 07/15/17 21:20 Dose: 5 mg General: Alert, No acute distress HEENT: Atraumatic, PERRLA Cardiovascular: Regular rate Lungs: Clear to auscultation Abdomen: Bowel sounds, Soft Extremities: Other (No edema) Neurological: Normal gait Skin: Other (Warm and dry) Psych/Mental Status: Other (Confused, not oriented) Assessment/Plan - Assessment Assessment: Patient is awake, alert, agitated at moments. DX: Psychosis, HTN. - Plan Plan: Patient is under Psychiatric care, continue with SNF meds. Will continue to monitor. Nutritional Asmnt/Malnutr-PDOC - Dietary Evaluation Malnutrition Findings (Please click <Entered> for more info): Nutritional Asmnt/Malnutrition Start: 07/15/17 16: 48 Text: Status: Complete Freq: Document 07/15/17 16:54 LCHENG (Rec: 07/15/17 16:57 LCHENG [email or web address]) Nutritional Asmnt/Malnutrition Patient General Information Nutritional Screening Low Risk Diagnosis Homicidal ideation, agitation Pertinent Medical Hx/Surgical Hx CAD, HTN, schizophrenia Subjective Information Per EMR, PO intake 100% of meals. Current Diet Order/ Nutrition Support regualr Pertinent Medications theragran Pertinent Labs 07/08 glucose 109, A1c 5.5, alb 4.0 Nutritional Hx/Data Height 1.68 m Height (Calculated Centimeters) 167.6 Current Weight (lbs) 68.039 kg Weight (Calculated Kilograms) 68.0 Weight (Calculated Grams) [address]277.9 [place] Body Weight 142 Body Mass Index (BMI) 24.2 Weight Status Approriate GI Symptoms GI Symptoms None Last BM 07/14 Difficult in: None Skin Integrity/Comment: intact Current %PO Good (75-100%) Estimated Nutritional Goals BEE in Kcals: Using Current wt Calories/Kcals/Kg 25-30 Kcals Calculated 5773-7068 Protein: Using Current wt Protein g/k Protein Calculated 68 Fluid: ml 1700-2040ml (1ml/kcal) Nutritional Problem No current Nutrition Prob Problem N/A Malnutrition Alert Protein-Calorie Malnutrition N/A Is there a minimum of two criteria No selected? Query Text:Check all the applicable criteria. A minimum of two criteria are recommended for diagnosis of either severe or non-severe malnutrition. Intervention/Recommendation Comments 1. Continue with current diet as ordered. 2. Monitor PO intake, wt, labs and skin integrity 3. F/U as low risk in 7ddays, 07/22 Expected Outcomes/Goals Expected Outcomes/Goals 1. PO intake to meet at least 75% of nutritional needs. 2. Wt stability, skin to remain intact, labs to approach WNL.
--- NOTE | 2017-07-19 01:27 | Progress Notes ---
DATE: SUBJECTIVE: The patient was seen and evaluated. The patient's chart reviewed. Today on [id number] evaluation, the patient reported the voices are still very distressful to kill others. He does not have anyone specific looking very distressful, that are just command type to hurt others. Reports no side effects of the medication. MENTAL STATUS EXAMINATION: Disorganized, hearing voices command type with homicidal ideation, but no one specific. TREATMENT PLAN: The patient is a 57-year-old male, who presents disorganized, delusional. Currently on risperidone 6 mg a day, which was maximized yesterday. We will continue with the primary psychiatrist's treatment plan and goals and also the augmentation of the Depakote 1000 mg a day. We will check Depakote levels in the next 24 hours to adjust accordingly. JOB# [id number]
[2017-07-19] MEDS: Multivitamin Tab PO SCH (08:38)
[2017-07-19] MEDS: risperiDONE 4 mg Tab PO SCH (08:39)
--- NOTE | 2017-07-19 09:15 | General Progress Note ---
Subjective - Review of Systems Service Date: 07/19/17 Subjective: I fell better. Objective - Results Result Diagrams: 07/08/17 16:44 07/08/17 16:44 Recent Labs: Laboratory Last Values WBC 7.1 Th/cmm (4.8-10.8) 07/08/17 16:44 RBC 4.67 Mil/cmm (4.30-5.70) 07/08/17 16:44 Hgb 14.2 gm/dL (12-16) 07/08/17 16:44 Hct 42.7 % (41.0-60) 07/08/17 16:44 MCV 91.4 fl (80-99) 07/08/17 16:44 MCH 30.4 pg (26.0-30.0) H 07/08/17 16:44 MCHC Differential 33.3 pg (28.0-36.0) 07/08/17 16:44 RDW 12.3 % (11.5-20.0) 07/08/17 16:44 Plt Count 288 Th/cmm (150-400) 07/08/17 16:44 MPV 7.0 fl 07/08/17 16:44 Neutrophils % 55.9 % (40.0-80.0) 07/08/17 16:44 Lymphocytes % 26.2 % (20.0-50.0) 07/08/17 16:44 Monocytes % 10.9 % (2.0-10.0) H 07/08/17 16:44 Eosinophils % 6.9 % (0.0-5.0) H 07/08/17 16:44 Basophils % 0.1 % (0.0-2.0) 07/08/17 16:44 Sodium 138 mEq/L (136-145) 07/08/17 16:44 Potassium 4.6 mEq/L (3.5-5.1) 07/08/17 16:44 Chloride 105 mEq/L (98-107) 07/08/17 16:44 Carbon Dioxide 29.3 mEq/L (21.0-31.0) 07/08/17 16:44 Anion Gap 8.3 (7.0-16.0) 07/08/17 16:44 BUN 17 mg/dL (7-25) 07/08/17 16:44 Creatinine 1.0 mg/dL (0.7-1.3) 07/08/17 16:44 Est GFR ( Amer) > 60.0 ml/min (>90) 07/08/17 16:44 Est GFR (Non-Af Amer) > 60.0 ml/min 07/08/17 16:44 BUN/Creatinine Ratio 17.0 07/08/17 16:44 Glucose 109 mg/dL (70-105) H 07/08/17 16:44 Hemoglobin A1c % 5.5 % (4.0-6.0) 07/08/17 16:44 Calcium 10.2 mg/dL (8.6-10.3) 07/08/17 16:44 Total Bilirubin 0.5 mg/dL (0.3-1.0) 07/08/17 16:44 AST 14 U/L (13-39) 07/08/17 16:44 ALT 14 U/L (7-52) 07/08/17 16:44 Alkaline Phosphatase 68 U/L (34-104) 07/08/17 16:44 Total Protein 6.9 gm/dL (6.0-8.3) 07/08/17 16:44 Albumin 4.0 gm/dL (4.2-5.5) L 07/08/17 16:44 Globulin 2.9 gm/dL 07/08/17 16:44 Albumin/Globulin Ratio 1.4 (1.0-1.8) 07/08/17 16:44 Triglycerides 86 mg/dL (<150) 07/08/17 16:44 Cholesterol 160 mg/dL (<200) 07/08/17 16:44 LDL Cholesterol Direct 100 mg/dL (75-193) 07/08/17 16:44 HDL Cholesterol 47 mg/dL (23-92) 07/08/17 16:44 TSH 0.44 uIU/ml (0.34-5.60) 07/08/17 16:44 Urine Source CLEAN C 07/08/17 16:00 Urine Color YELLOW 07/08/17 16:00 Urine Clarity CLEAR (CLEAR) 07/08/17 16:00 Urine pH 7.0 (4.6 - 8.0) 07/08/17 16:00 Ur Specific [place] 1.020 (1.005-1.030) 07/08/17 16:00 Urine Protein NEGATIVE mg/dL (NEGATIVE) 07/08/17 16:00 Urine Glucose (UA) NEGATIVE mg/dL (NEGATIVE) 07/08/17 16:00 Urine Ketones NEGATIVE mg/dL (NEGATIVE) 07/08/17 16:00 Urine Blood NEGATIVE (NEGATIVE) 07/08/17 16:00 Urine Nitrate NEGATIVE (NEGATIVE) 07/08/17 16:00 Urine Bilirubin NEGATIVE (NEGATIVE) 07/08/17 16:00 Urine Urobilinogen 0.2 E.U./dL (0.2 - 1.0) 07/08/17 16:00 Ur Leukocyte Esterase NEGATIVE (NEGATIVE) 07/08/17 16:00 Urine RBC NONE SEEN /hpf (0-5) 07/08/17 16:00 Urine WBC NONE SEEN /hpf (0-5) 07/08/17 16:00 Ur Epithelial Cells NONE SEEN /lpf (FEW) 07/08/17 16:00 Urine Bacteria NONE SEEN /hpf (NONE SEEN) 07/08/17 16:00 Salicylates < 25.0 mg/L (30.0-100.0) L 07/08/17 16:44 Urine Opiates Screen NEGATIVE (NEGATIVE) 07/08/17 16:00 Urine Methadone Screen NEGATIVE (NEGATIVE) 07/08/17 16:00 Acetaminophen < 10.0 ug/mL (10.0-30.0) L 07/08/17 16:44 Ur Barbiturates Screen NEGATIVE (NEGATIVE) 07/08/17 16:00 Valproic Acid < 10.0 ug/mL (50.0-100.0) L 07/14/17 12:31 Ur Tricyclics Screen NEGATIVE (NEGATIVE) 07/08/17 16:00 Ur Phencyclidine Scrn NEGATIVE (NEGATIVE) 07/08/17 16:00 Amphetamines Screen NEGATIVE (NEGATIVE) 07/08/17 16:00 U Methamphetamines Scrn NEGATIVE (NEGATIVE) 07/08/17 16:00 U Benzodiazepines Scrn NEGATIVE (NEGATIVE) 07/08/17 16:00 U Cocaine Metab Screen NEGATIVE (NEGATIVE) 07/08/17 16:00 U Cannabinoids Screen POSITIVE (NEGATIVE) H 07/08/17 16:00 Ethyl Alcohol < 10 mg/dL (0-10) 07/08/17 16:44 RPR NONREACTIVE (NONREACTIVE) 07/08/17 16:44 - Physical Exam Vitals and I&O: Vital Signs Temp 97.8 F 07/19/17 06:26 Pulse 89 07/19/17 06:26 Resp 20 07/19/17 06:26 BP 114/75 07/19/17 06:26 Pulse Ox 98 07/19/17 06:26 Intake & Output 07/18/17 07/19/17 07/19/17 18:59 06:59 18:59 Intake Total 1600 840 Balance 1600 840 Intake: Oral 1600 840 Other: # Voids 4 1 # Bowel Movements 1 Stool Characteristics Soft Active Medications: Current Medications Acetaminophen (Tylenol) 650 mg PO Q4HR PRN PRN Reason: Mild Pain / Temp above 100 Stop: 09/06/17 18:47 Al Hydrox/Mg Hydrox/Simethicone (Maalox) 30 ml PO Q4HR PRN PRN Reason: GI DISTRESS Stop: 09/06/17 18:47 Divalproex Sodium (Depakote Dr) 500 mg PO BID KATHIE PRN Reason: Protocol Stop: 09/12/17 16:59 Last Admin: 07/19/17 08:38 Dose: 500 mg Loratadine (Claritin) 10 mg PO DAILY PRN PRN Reason: Allergy Symptoms Stop: 09/10/17 08:46 Lorazepam (Ativan) 0.5 mg PO Q4HR PRN; Protocol PRN Reason: Agitation Stop: 08/07/17 18:47 Last Admin: 07/10/17 08:05 Dose: 0.5 mg Magnesium Hydroxide (Milk Of Magnesia) 30 ml PO HS PRN PRN Reason: Constipation Multivitamins/Vitamin C (Theragran) 1 tab PO DAILY [facility] Stop: 09/07/17 08:59 Last Admin: 07/19/17 08:38 Dose: 1 tab Risperidone (Risperdal) 6 mg PO DAILY [facility] Stop: 09/15/17 15:55 Last Admin: 07/19/17 08:39 Dose: 6 mg Zolpidem Tartrate (Ambien) 5 mg PO HS PRN PRN Reason: Insomnia Stop: 09/06/17 18:47 Last Admin: 07/15/17 21:20 Dose: 5 mg General: Alert, No acute distress HEENT: Atraumatic, PERRLA Cardiovascular: Regular rate Lungs: Clear to auscultation Abdomen: Bowel sounds, Soft Extremities: Other (No edema) Neurological: Normal gait Skin: Other (Warm and dry) Psych/Mental Status: Other (Confused, not oriented) Assessment/Plan - Assessment Assessment: Patient is awake, alert, agitated at moments. DX: Psychosis, HTN. - Plan Plan: Patient is under Psychiatric care, continue with SNF meds. Will continue to monitor. Nutritional Asmnt/Malnutr-PDOC - Dietary Evaluation Malnutrition Findings (Please click <Entered> for more info): Nutritional Asmnt/Malnutrition Start: 07/15/17 16: 48 Text: Status: Complete Freq: Document 07/15/17 16:54 LCHENG (Rec: 07/15/17 16:57 LCHENG [email or web address]) Nutritional Asmnt/Malnutrition Patient General Information Nutritional Screening Low Risk Diagnosis Homicidal ideation, agitation Pertinent Medical Hx/Surgical Hx CAD, HTN, schizophrenia Subjective Information Per EMR, PO intake 100% of meals. Current Diet Order/ Nutrition Support regualr Pertinent Medications theragran Pertinent Labs 07/08 glucose 109, A1c 5.5, alb 4.0 Nutritional Hx/Data Height 1.68 m Height (Calculated Centimeters) 167.6 Current Weight (lbs) 68.039 kg Weight (Calculated Kilograms) 68.0 Weight (Calculated Grams) 58550.9 [place] Body Weight 142 Body Mass Index (BMI) 24.2 Weight Status Approriate GI Symptoms GI Symptoms None Last BM 07/14 Difficult in: None Skin Integrity/Comment: intact Current %PO Good (75-100%) Estimated Nutritional Goals BEE in Kcals: Using Current wt Calories/Kcals/Kg 25-30 Kcals Calculated 1839-8747 Protein: Using Current wt Protein g/k Protein Calculated 68 Fluid: ml 1700-2040ml (1ml/kcal) Nutritional Problem No current Nutrition Prob Problem N/A Malnutrition Alert Protein-Calorie Malnutrition N/A Is there a minimum of two criteria No selected? Query Text:Check all the applicable criteria. A minimum of two criteria are recommended for diagnosis of either severe or non-severe malnutrition. Intervention/Recommendation Comments 1. Continue with current diet as ordered. 2. Monitor PO intake, wt, labs and skin integrity 3. F/U as low risk in 7ddays, 07/22 Expected Outcomes/Goals Expected Outcomes/Goals 1. PO intake to meet at least 75% of nutritional needs. 2. Wt stability, skin to remain intact, labs to approach WNL.
--- NOTE | 2017-07-20 05:06 | Progress Notes ---
DATE: 07/19/2017 SUBJECTIVE: The patient was seen and evaluated. The patient's chart reviewed. Today, on [id number] evaluation, the patient reported the voices continue to persist. He does not feel like there is much improvement with the recent increase of Seroquel. He denies any side effects to medications. ____ provided lot of psychoeducation that allowing medications for at least 48-72 hours to do that in his system prior to noticing some mild improvement. He does report a mild improvement comparing to when he first came in, ____ voices. MENTAL STATUS EXAMINATION: ____ hearing voices ____ specific. ASSESSMENT AND PLAN: This is a 57-year-old male with a history of psychosis whose risperidone was recently increased to 6 mg without complications. We will continue with the current augmentation of Depakote to target the patient's ____ psychotic symptoms that are command type in nature. JOB# [id number]
[2017-07-20] MEDS: Multivitamin Tab PO SCH (08:07)
[2017-07-20] MEDS: risperiDONE 4 mg Tab PO SCH (08:07)
--- NOTE | 2017-07-20 13:26 | General Progress Note ---
Subjective - Review of Systems Service Date: 07/20/17 Subjective: I fell better. Objective - Results Result Diagrams: 07/08/17 16:44 07/08/17 16:44 Recent Labs: Laboratory Last Values WBC 7.1 Th/cmm (4.8-10.8) 07/08/17 16:44 RBC 4.67 Mil/cmm (4.30-5.70) 07/08/17 16:44 Hgb 14.2 gm/dL (12-16) 07/08/17 16:44 Hct 42.7 % (41.0-60) 07/08/17 16:44 MCV 91.4 fl (80-99) 07/08/17 16:44 MCH 30.4 pg (26.0-30.0) H 07/08/17 16:44 MCHC Differential 33.3 pg (28.0-36.0) 07/08/17 16:44 RDW 12.3 % (11.5-20.0) 07/08/17 16:44 Plt Count 288 Th/cmm (150-400) 07/08/17 16:44 MPV 7.0 fl 07/08/17 16:44 Neutrophils % 55.9 % (40.0-80.0) 07/08/17 16:44 Lymphocytes % 26.2 % (20.0-50.0) 07/08/17 16:44 Monocytes % 10.9 % (2.0-10.0) H 07/08/17 16:44 Eosinophils % 6.9 % (0.0-5.0) H 07/08/17 16:44 Basophils % 0.1 % (0.0-2.0) 07/08/17 16:44 Sodium 138 mEq/L (136-145) 07/08/17 16:44 Potassium 4.6 mEq/L (3.5-5.1) 07/08/17 16:44 Chloride 105 mEq/L (98-107) 07/08/17 16:44 Carbon Dioxide 29.3 mEq/L (21.0-31.0) 07/08/17 16:44 Anion Gap 8.3 (7.0-16.0) 07/08/17 16:44 BUN 17 mg/dL (7-25) 07/08/17 16:44 Creatinine 1.0 mg/dL (0.7-1.3) 07/08/17 16:44 Est GFR ( Amer) > 60.0 ml/min (>90) 07/08/17 16:44 Est GFR (Non-Af Amer) > 60.0 ml/min 07/08/17 16:44 BUN/Creatinine Ratio 17.0 07/08/17 16:44 Glucose 109 mg/dL (70-105) H 07/08/17 16:44 Hemoglobin A1c % 5.5 % (4.0-6.0) 07/08/17 16:44 Calcium 10.2 mg/dL (8.6-10.3) 07/08/17 16:44 Total Bilirubin 0.5 mg/dL (0.3-1.0) 07/08/17 16:44 AST 14 U/L (13-39) 07/08/17 16:44 ALT 14 U/L (7-52) 07/08/17 16:44 Alkaline Phosphatase 68 U/L (34-104) 07/08/17 16:44 Total Protein 6.9 gm/dL (6.0-8.3) 07/08/17 16:44 Albumin 4.0 gm/dL (4.2-5.5) L 07/08/17 16:44 Globulin 2.9 gm/dL 07/08/17 16:44 Albumin/Globulin Ratio 1.4 (1.0-1.8) 07/08/17 16:44 Triglycerides 86 mg/dL (<150) 07/08/17 16:44 Cholesterol 160 mg/dL (<200) 07/08/17 16:44 LDL Cholesterol Direct 100 mg/dL (75-193) 07/08/17 16:44 HDL Cholesterol 47 mg/dL (23-92) 07/08/17 16:44 TSH 0.44 uIU/ml (0.34-5.60) 07/08/17 16:44 Urine Source CLEAN C 07/08/17 16:00 Urine Color YELLOW 07/08/17 16:00 Urine Clarity CLEAR (CLEAR) 07/08/17 16:00 Urine pH 7.0 (4.6 - 8.0) 07/08/17 16:00 Ur Specific [place] 1.020 (1.005-1.030) 07/08/17 16:00 Urine Protein NEGATIVE mg/dL (NEGATIVE) 07/08/17 16:00 Urine Glucose (UA) NEGATIVE mg/dL (NEGATIVE) 07/08/17 16:00 Urine Ketones NEGATIVE mg/dL (NEGATIVE) 07/08/17 16:00 Urine Blood NEGATIVE (NEGATIVE) 07/08/17 16:00 Urine Nitrate NEGATIVE (NEGATIVE) 07/08/17 16:00 Urine Bilirubin NEGATIVE (NEGATIVE) 07/08/17 16:00 Urine Urobilinogen 0.2 E.U./dL (0.2 - 1.0) 07/08/17 16:00 Ur Leukocyte Esterase NEGATIVE (NEGATIVE) 07/08/17 16:00 Urine RBC NONE SEEN /hpf (0-5) 07/08/17 16:00 Urine WBC NONE SEEN /hpf (0-5) 07/08/17 16:00 Ur Epithelial Cells NONE SEEN /lpf (FEW) 07/08/17 16:00 Urine Bacteria NONE SEEN /hpf (NONE SEEN) 07/08/17 16:00 Salicylates < 25.0 mg/L (30.0-100.0) L 07/08/17 16:44 Urine Opiates Screen NEGATIVE (NEGATIVE) 07/08/17 16:00 Urine Methadone Screen NEGATIVE (NEGATIVE) 07/08/17 16:00 Acetaminophen < 10.0 ug/mL (10.0-30.0) L 07/08/17 16:44 Ur Barbiturates Screen NEGATIVE (NEGATIVE) 07/08/17 16:00 Valproic Acid < 10.0 ug/mL (50.0-100.0) L 07/14/17 12:31 Ur Tricyclics Screen NEGATIVE (NEGATIVE) 07/08/17 16:00 Ur Phencyclidine Scrn NEGATIVE (NEGATIVE) 07/08/17 16:00 Amphetamines Screen NEGATIVE (NEGATIVE) 07/08/17 16:00 U Methamphetamines Scrn NEGATIVE (NEGATIVE) 07/08/17 16:00 U Benzodiazepines Scrn NEGATIVE (NEGATIVE) 07/08/17 16:00 U Cocaine Metab Screen NEGATIVE (NEGATIVE) 07/08/17 16:00 U Cannabinoids Screen POSITIVE (NEGATIVE) H 07/08/17 16:00 Ethyl Alcohol < 10 mg/dL (0-10) 07/08/17 16:44 RPR NONREACTIVE (NONREACTIVE) 07/08/17 16:44 - Physical Exam Vitals and I&O: Vital Signs Temp 98.1 F 07/20/17 05:51 Pulse 69 07/20/17 05:51 Resp 18 07/20/17 08:00 BP 116/69 07/20/17 05:51 Pulse Ox 99 07/20/17 05:51 Intake & Output 07/19/17 07/20/17 07/20/17 18:59 06:59 18:59 Intake Total 1200 400 Balance 1200 400 Intake: Oral 1200 400 Other: # Voids 4 3 # Bowel Movements 1 1 Stool Characteristics Formed Formed Brown Brown Active Medications: Current Medications Acetaminophen (Tylenol) 650 mg PO Q4HR PRN PRN Reason: Mild Pain / Temp above 100 Stop: 09/06/17 18:47 Al Hydrox/Mg Hydrox/Simethicone (Maalox) 30 ml PO Q4HR PRN PRN Reason: GI DISTRESS Stop: 09/06/17 18:47 Divalproex Sodium (Depakote Dr) 500 mg PO BID KATHIE PRN Reason: Protocol Stop: 09/12/17 16:59 Last Admin: 07/20/17 08:07 Dose: 500 mg Loratadine (Claritin) 10 mg PO DAILY PRN PRN Reason: Allergy Symptoms Stop: 09/10/17 08:46 Lorazepam (Ativan) 0.5 mg PO Q4HR PRN; Protocol PRN Reason: Agitation Stop: 08/07/17 18:47 Last Admin: 07/10/17 08:05 Dose: 0.5 mg Magnesium Hydroxide (Milk Of Magnesia) 30 ml PO HS PRN PRN Reason: Constipation Multivitamins/Vitamin C (Theragran) 1 tab PO DAILY [facility] Stop: 09/07/17 08:59 Last Admin: 07/20/17 08:07 Dose: 1 tab Risperidone (Risperdal) 6 mg PO DAILY [facility] Stop: 09/15/17 15:55 Last Admin: 07/20/17 08:07 Dose: 6 mg Zolpidem Tartrate (Ambien) 5 mg PO HS PRN PRN Reason: Insomnia Stop: 09/06/17 18:47 Last Admin: 07/15/17 21:20 Dose: 5 mg General: Alert, No acute distress HEENT: Atraumatic, PERRLA Cardiovascular: Regular rate Lungs: Clear to auscultation Abdomen: Bowel sounds, Soft Extremities: Other (No edema) Neurological: Normal gait Skin: Other (Warm and dry) Psych/Mental Status: Other (Confused, not oriented) Assessment/Plan - Assessment Assessment: Patient is awake, alert, agitated at moments. DX: Psychosis, HTN. - Plan Plan: Patient is under Psychiatric care, continue with SNF meds. Will continue to monitor. Nutritional Asmnt/Malnutr-PDOC - Dietary Evaluation Malnutrition Findings (Please click <Entered> for more info): Nutritional Asmnt/Malnutrition Start: 07/15/17 16: 48 Text: Status: Complete Freq: Document 07/15/17 16:54 LCHENG (Rec: 07/15/17 16:57 LCHENG [email or web address]) Nutritional Asmnt/Malnutrition Patient General Information Nutritional Screening Low Risk Diagnosis Homicidal ideation, agitation Pertinent Medical Hx/Surgical Hx CAD, HTN, schizophrenia Subjective Information Per EMR, PO intake 100% of meals. Current Diet Order/ Nutrition Support regualr Pertinent Medications theragran Pertinent Labs 07/08 glucose 109, A1c 5.5, alb 4.0 Nutritional Hx/Data Height 1.68 m Height (Calculated Centimeters) 167.6 Current Weight (lbs) 68.039 kg Weight (Calculated Kilograms) 68.0 Weight (Calculated Grams) 70404.9 [place] Body Weight 142 Body Mass Index (BMI) 24.2 Weight Status Approriate GI Symptoms GI Symptoms None Last BM 07/14 Difficult in: None Skin Integrity/Comment: intact Current %PO Good (75-100%) Estimated Nutritional Goals BEE in Kcals: Using Current wt Calories/Kcals/Kg 25-30 Kcals Calculated 2364-8244 Protein: Using Current wt Protein g/k Protein Calculated 68 Fluid: ml 1700-2040ml (1ml/kcal) Nutritional Problem No current Nutrition Prob Problem N/A Malnutrition Alert Protein-Calorie Malnutrition N/A Is there a minimum of two criteria No selected? Query Text:Check all the applicable criteria. A minimum of two criteria are recommended for diagnosis of either severe or non-severe malnutrition. Intervention/Recommendation Comments 1. Continue with current diet as ordered. 2. Monitor PO intake, wt, labs and skin integrity 3. F/U as low risk in 7ddays, 07/22 Expected Outcomes/Goals Expected Outcomes/Goals 1. PO intake to meet at least 75% of nutritional needs. 2. Wt stability, skin to remain intact, labs to approach WNL.
--- NOTE | 2017-07-20 18:39 | Progress Notes ---
DATE: 07/20/2017 The patient remains symptomatic, still talking with [employer]. _He___ _ was saying his [id number] is "double spawn" and stating that if he leaves here, he will go find his cousin and he will kill him by just using his finger with "love and kindness." The patient notes that 09/18 there will be a huge earthquake in [place]. The [employer] will be released from the earth and will somehow make its way over to the [place], his cousin along will try to destroy it and that's where the patient's role comes in, he must protect the [employer] by destroying his [id number] by "spontaneous ___human__ combustion." MENTAL STATUS EXAMINATION: Bizarre, delusional, grandiose, homicidal. However, his intent and plan to harm the cousin does not seem based on reality where he will shower his cousin with love and this will somehow kill the cousin. PLAN: Continue to monitor. Probable cause was upheld. JOB# [id number] HECTOR
[2017-07-21] MEDS: risperiDONE 4 mg Tab PO SCH (08:42)
[2017-07-21] MEDS: Multivitamin Tab PO SCH (08:42)
--- NOTE | 2017-07-21 09:35 | General Progress Note ---
Subjective - Review of Systems Service Date: 07/21/17 Subjective: I fell better. Objective - Results Result Diagrams: 07/08/17 16:44 07/08/17 16:44 Recent Labs: Laboratory Last Values WBC 7.1 Th/cmm (4.8-10.8) 07/08/17 16:44 RBC 4.67 Mil/cmm (4.30-5.70) 07/08/17 16:44 Hgb 14.2 gm/dL (12-16) 07/08/17 16:44 Hct 42.7 % (41.0-60) 07/08/17 16:44 MCV 91.4 fl (80-99) 07/08/17 16:44 MCH 30.4 pg (26.0-30.0) H 07/08/17 16:44 MCHC Differential 33.3 pg (28.0-36.0) 07/08/17 16:44 RDW 12.3 % (11.5-20.0) 07/08/17 16:44 Plt Count 288 Th/cmm (150-400) 07/08/17 16:44 MPV 7.0 fl 07/08/17 16:44 Neutrophils % 55.9 % (40.0-80.0) 07/08/17 16:44 Lymphocytes % 26.2 % (20.0-50.0) 07/08/17 16:44 Monocytes % 10.9 % (2.0-10.0) H 07/08/17 16:44 Eosinophils % 6.9 % (0.0-5.0) H 07/08/17 16:44 Basophils % 0.1 % (0.0-2.0) 07/08/17 16:44 Sodium 138 mEq/L (136-145) 07/08/17 16:44 Potassium 4.6 mEq/L (3.5-5.1) 07/08/17 16:44 Chloride 105 mEq/L (98-107) 07/08/17 16:44 Carbon Dioxide 29.3 mEq/L (21.0-31.0) 07/08/17 16:44 Anion Gap 8.3 (7.0-16.0) 07/08/17 16:44 BUN 17 mg/dL (7-25) 07/08/17 16:44 Creatinine 1.0 mg/dL (0.7-1.3) 07/08/17 16:44 Est GFR ( Amer) > 60.0 ml/min (>90) 07/08/17 16:44 Est GFR (Non-Af Amer) > 60.0 ml/min 07/08/17 16:44 BUN/Creatinine Ratio 17.0 07/08/17 16:44 Glucose 109 mg/dL (70-105) H 07/08/17 16:44 Hemoglobin A1c % 5.5 % (4.0-6.0) 07/08/17 16:44 Calcium 10.2 mg/dL (8.6-10.3) 07/08/17 16:44 Total Bilirubin 0.5 mg/dL (0.3-1.0) 07/08/17 16:44 AST 14 U/L (13-39) 07/08/17 16:44 ALT 14 U/L (7-52) 07/08/17 16:44 Alkaline Phosphatase 68 U/L (34-104) 07/08/17 16:44 Total Protein 6.9 gm/dL (6.0-8.3) 07/08/17 16:44 Albumin 4.0 gm/dL (4.2-5.5) L 07/08/17 16:44 Globulin 2.9 gm/dL 07/08/17 16:44 Albumin/Globulin Ratio 1.4 (1.0-1.8) 07/08/17 16:44 Triglycerides 86 mg/dL (<150) 07/08/17 16:44 Cholesterol 160 mg/dL (<200) 07/08/17 16:44 LDL Cholesterol Direct 100 mg/dL (75-193) 07/08/17 16:44 HDL Cholesterol 47 mg/dL (23-92) 07/08/17 16:44 TSH 0.44 uIU/ml (0.34-5.60) 07/08/17 16:44 Urine Source CLEAN C 07/08/17 16:00 Urine Color YELLOW 07/08/17 16:00 Urine Clarity CLEAR (CLEAR) 07/08/17 16:00 Urine pH 7.0 (4.6 - 8.0) 07/08/17 16:00 Ur Specific [place] 1.020 (1.005-1.030) 07/08/17 16:00 Urine Protein NEGATIVE mg/dL (NEGATIVE) 07/08/17 16:00 Urine Glucose (UA) NEGATIVE mg/dL (NEGATIVE) 07/08/17 16:00 Urine Ketones NEGATIVE mg/dL (NEGATIVE) 07/08/17 16:00 Urine Blood NEGATIVE (NEGATIVE) 07/08/17 16:00 Urine Nitrate NEGATIVE (NEGATIVE) 07/08/17 16:00 Urine Bilirubin NEGATIVE (NEGATIVE) 07/08/17 16:00 Urine Urobilinogen 0.2 E.U./dL (0.2 - 1.0) 07/08/17 16:00 Ur Leukocyte Esterase NEGATIVE (NEGATIVE) 07/08/17 16:00 Urine RBC NONE SEEN /hpf (0-5) 07/08/17 16:00 Urine WBC NONE SEEN /hpf (0-5) 07/08/17 16:00 Ur Epithelial Cells NONE SEEN /lpf (FEW) 07/08/17 16:00 Urine Bacteria NONE SEEN /hpf (NONE SEEN) 07/08/17 16:00 Salicylates < 25.0 mg/L (30.0-100.0) L 07/08/17 16:44 Urine Opiates Screen NEGATIVE (NEGATIVE) 07/08/17 16:00 Urine Methadone Screen NEGATIVE (NEGATIVE) 07/08/17 16:00 Acetaminophen < 10.0 ug/mL (10.0-30.0) L 07/08/17 16:44 Ur Barbiturates Screen NEGATIVE (NEGATIVE) 07/08/17 16:00 Valproic Acid < 10.0 ug/mL (50.0-100.0) L 07/14/17 12:31 Ur Tricyclics Screen NEGATIVE (NEGATIVE) 07/08/17 16:00 Ur Phencyclidine Scrn NEGATIVE (NEGATIVE) 07/08/17 16:00 Amphetamines Screen NEGATIVE (NEGATIVE) 07/08/17 16:00 U Methamphetamines Scrn NEGATIVE (NEGATIVE) 07/08/17 16:00 U Benzodiazepines Scrn NEGATIVE (NEGATIVE) 07/08/17 16:00 U Cocaine Metab Screen NEGATIVE (NEGATIVE) 07/08/17 16:00 U Cannabinoids Screen POSITIVE (NEGATIVE) H 07/08/17 16:00 Ethyl Alcohol < 10 mg/dL (0-10) 07/08/17 16:44 RPR NONREACTIVE (NONREACTIVE) 07/08/17 16:44 - Physical Exam Vitals and I&O: Vital Signs Temp 97.3 F 07/21/17 06:26 Pulse 88 07/21/17 06:26 Resp 18 07/21/17 06:26 BP 112/76 07/21/17 06:26 Pulse Ox 100 07/21/17 06:26 Intake & Output 07/20/17 07/21/17 07/21/17 18:59 06:59 18:59 Intake Total 1200 480 Balance 1200 480 Intake: Oral 1200 480 Other: # Voids 4 3 # Bowel Movements 1 0 Stool Characteristics Formed Formed Brown Brown Active Medications: Current Medications Acetaminophen (Tylenol) 650 mg PO Q4HR PRN PRN Reason: Mild Pain / Temp above 100 Stop: 09/06/17 18:47 Al Hydrox/Mg Hydrox/Simethicone (Maalox) 30 ml PO Q4HR PRN PRN Reason: GI DISTRESS Stop: 09/06/17 18:47 Divalproex Sodium (Depakote Dr) 500 mg PO BID KATHIE PRN Reason: Protocol Stop: 09/12/17 16:59 Last Admin: 07/21/17 08:42 Dose: Not Given Loratadine (Claritin) 10 mg PO DAILY PRN PRN Reason: Allergy Symptoms Stop: 09/10/17 08:46 Lorazepam (Ativan) 0.5 mg PO Q4HR PRN; Protocol PRN Reason: Agitation Stop: 08/07/17 18:47 Last Admin: 07/10/17 08:05 Dose: 0.5 mg Magnesium Hydroxide (Milk Of Magnesia) 30 ml PO HS PRN PRN Reason: Constipation Multivitamins/Vitamin C (Theragran) 1 tab PO DAILY [facility] Stop: 09/07/17 08:59 Last Admin: 07/21/17 08:42 Dose: Not Given Risperidone (Risperdal) 6 mg PO DAILY [facility] Stop: 09/15/17 15:55 Last Admin: 07/21/17 08:42 Dose: Not Given Zolpidem Tartrate (Ambien) 5 mg PO HS PRN PRN Reason: Insomnia Stop: 09/06/17 18:47 Last Admin: 07/15/17 21:20 Dose: 5 mg General: Alert, No acute distress HEENT: Atraumatic, PERRLA Cardiovascular: Regular rate Lungs: Clear to auscultation Abdomen: Bowel sounds, Soft Extremities: Other (No edema) Neurological: Normal gait Skin: Other (Warm and dry) Psych/Mental Status: Other (Confused, not oriented) Assessment/Plan - Assessment Assessment: Patient is awake, alert, agitated at moments. DX: Psychosis, HTN. - Plan Plan: Patient is under Psychiatric care, continue with SNF meds. Will continue to monitor. Nutritional Asmnt/Malnutr-PDOC - Dietary Evaluation Malnutrition Findings (Please click <Entered> for more info): Nutritional Asmnt/Malnutrition Start: 07/15/17 16: 48 Text: Status: Complete Freq: Document 07/15/17 16:54 LCHENG (Rec: 07/15/17 16:57 LCHENG [email or web address]) Nutritional Asmnt/Malnutrition Patient General Information Nutritional Screening Low Risk Diagnosis Homicidal ideation, agitation Pertinent Medical Hx/Surgical Hx CAD, HTN, schizophrenia Subjective Information Per EMR, PO intake 100% of meals. Current Diet Order/ Nutrition Support regualr Pertinent Medications theragran Pertinent Labs 07/08 glucose 109, A1c 5.5, alb 4.0 Nutritional Hx/Data Height 1.68 m Height (Calculated Centimeters) 167.6 Current Weight (lbs) 68.039 kg Weight (Calculated Kilograms) 68.0 Weight (Calculated Grams) 18881.9 [place] Body Weight 142 Body Mass Index (BMI) 24.2 Weight Status Approriate GI Symptoms GI Symptoms None Last BM 07/14 Difficult in: None Skin Integrity/Comment: intact Current %PO Good (75-100%) Estimated Nutritional Goals BEE in Kcals: Using Current wt Calories/Kcals/Kg 25-30 Kcals Calculated 4090-6761 Protein: Using Current wt Protein g/k Protein Calculated 68 Fluid: ml 1700-2040ml (1ml/kcal) Nutritional Problem No current Nutrition Prob Problem N/A Malnutrition Alert Protein-Calorie Malnutrition N/A Is there a minimum of two criteria No selected? Query Text:Check all the applicable criteria. A minimum of two criteria are recommended for diagnosis of either severe or non-severe malnutrition. Intervention/Recommendation Comments 1. Continue with current diet as ordered. 2. Monitor PO intake, wt, labs and skin integrity 3. F/U as low risk in 7ddays, 07/22 Expected Outcomes/Goals Expected Outcomes/Goals 1. PO intake to meet at least 75% of nutritional needs. 2. Wt stability, skin to remain intact, labs to approach WNL.
--- NOTE | 2017-07-21 16:31 | Progress Notes ---
DATE: 07/21/2017 SUBJECTIVE: The patient remains symptomatic, still talking about the [employer]. Still saying that his [id number] "deepti spawn." The patient wants to find the cousin and kill him with "love and kindness using one finger," still delusional, bizarre. He is taking his medications. No side effects. Probable cause hearing was upheld. MENTAL STATUS EXAMINATION: Bizarre, delusional, nonsensical, still making some homicidal statements. PLAN: We will continue to monitor and adjust medications. The patient is not safe for discharge. MEDICATIONS: Reviewed. JOB# [id number]
[2017-07-22] MEDS: risperiDONE 4 mg Tab PO SCH (08:23)
[2017-07-22] MEDS: Multivitamin Tab PO SCH (08:23)
--- NOTE | 2017-07-22 13:33 | General Progress Note ---
Subjective - Review of Systems Service Date: 07/22/17 Subjective: I fell better. Objective - Results Result Diagrams: 07/08/17 16:44 07/08/17 16:44 Recent Labs: Laboratory Last Values WBC 7.1 Th/cmm (4.8-10.8) 07/08/17 16:44 RBC 4.67 Mil/cmm (4.30-5.70) 07/08/17 16:44 Hgb 14.2 gm/dL (12-16) 07/08/17 16:44 Hct 42.7 % (41.0-60) 07/08/17 16:44 MCV 91.4 fl (80-99) 07/08/17 16:44 MCH 30.4 pg (26.0-30.0) H 07/08/17 16:44 MCHC Differential 33.3 pg (28.0-36.0) 07/08/17 16:44 RDW 12.3 % (11.5-20.0) 07/08/17 16:44 Plt Count 288 Th/cmm (150-400) 07/08/17 16:44 MPV 7.0 fl 07/08/17 16:44 Neutrophils % 55.9 % (40.0-80.0) 07/08/17 16:44 Lymphocytes % 26.2 % (20.0-50.0) 07/08/17 16:44 Monocytes % 10.9 % (2.0-10.0) H 07/08/17 16:44 Eosinophils % 6.9 % (0.0-5.0) H 07/08/17 16:44 Basophils % 0.1 % (0.0-2.0) 07/08/17 16:44 Sodium 138 mEq/L (136-145) 07/08/17 16:44 Potassium 4.6 mEq/L (3.5-5.1) 07/08/17 16:44 Chloride 105 mEq/L (98-107) 07/08/17 16:44 Carbon Dioxide 29.3 mEq/L (21.0-31.0) 07/08/17 16:44 Anion Gap 8.3 (7.0-16.0) 07/08/17 16:44 BUN 17 mg/dL (7-25) 07/08/17 16:44 Creatinine 1.0 mg/dL (0.7-1.3) 07/08/17 16:44 Est GFR ( Amer) > 60.0 ml/min (>90) 07/08/17 16:44 Est GFR (Non-Af Amer) > 60.0 ml/min 07/08/17 16:44 BUN/Creatinine Ratio 17.0 07/08/17 16:44 Glucose 109 mg/dL (70-105) H 07/08/17 16:44 Hemoglobin A1c % 5.5 % (4.0-6.0) 07/08/17 16:44 Calcium 10.2 mg/dL (8.6-10.3) 07/08/17 16:44 Total Bilirubin 0.5 mg/dL (0.3-1.0) 07/08/17 16:44 AST 14 U/L (13-39) 07/08/17 16:44 ALT 14 U/L (7-52) 07/08/17 16:44 Alkaline Phosphatase 68 U/L (34-104) 07/08/17 16:44 Total Protein 6.9 gm/dL (6.0-8.3) 07/08/17 16:44 Albumin 4.0 gm/dL (4.2-5.5) L 07/08/17 16:44 Globulin 2.9 gm/dL 07/08/17 16:44 Albumin/Globulin Ratio 1.4 (1.0-1.8) 07/08/17 16:44 Triglycerides 86 mg/dL (<150) 07/08/17 16:44 Cholesterol 160 mg/dL (<200) 07/08/17 16:44 LDL Cholesterol Direct 100 mg/dL (75-193) 07/08/17 16:44 HDL Cholesterol 47 mg/dL (23-92) 07/08/17 16:44 TSH 0.44 uIU/ml (0.34-5.60) 07/08/17 16:44 Urine Source CLEAN C 07/08/17 16:00 Urine Color YELLOW 07/08/17 16:00 Urine Clarity CLEAR (CLEAR) 07/08/17 16:00 Urine pH 7.0 (4.6 - 8.0) 07/08/17 16:00 Ur Specific [place] 1.020 (1.005-1.030) 07/08/17 16:00 Urine Protein NEGATIVE mg/dL (NEGATIVE) 07/08/17 16:00 Urine Glucose (UA) NEGATIVE mg/dL (NEGATIVE) 07/08/17 16:00 Urine Ketones NEGATIVE mg/dL (NEGATIVE) 07/08/17 16:00 Urine Blood NEGATIVE (NEGATIVE) 07/08/17 16:00 Urine Nitrate NEGATIVE (NEGATIVE) 07/08/17 16:00 Urine Bilirubin NEGATIVE (NEGATIVE) 07/08/17 16:00 Urine Urobilinogen 0.2 E.U./dL (0.2 - 1.0) 07/08/17 16:00 Ur Leukocyte Esterase NEGATIVE (NEGATIVE) 07/08/17 16:00 Urine RBC NONE SEEN /hpf (0-5) 07/08/17 16:00 Urine WBC NONE SEEN /hpf (0-5) 07/08/17 16:00 Ur Epithelial Cells NONE SEEN /lpf (FEW) 07/08/17 16:00 Urine Bacteria NONE SEEN /hpf (NONE SEEN) 07/08/17 16:00 Salicylates < 25.0 mg/L (30.0-100.0) L 07/08/17 16:44 Urine Opiates Screen NEGATIVE (NEGATIVE) 07/08/17 16:00 Urine Methadone Screen NEGATIVE (NEGATIVE) 07/08/17 16:00 Acetaminophen < 10.0 ug/mL (10.0-30.0) L 07/08/17 16:44 Ur Barbiturates Screen NEGATIVE (NEGATIVE) 07/08/17 16:00 Valproic Acid < 10.0 ug/mL (50.0-100.0) L 07/14/17 12:31 Ur Tricyclics Screen NEGATIVE (NEGATIVE) 07/08/17 16:00 Ur Phencyclidine Scrn NEGATIVE (NEGATIVE) 07/08/17 16:00 Amphetamines Screen NEGATIVE (NEGATIVE) 07/08/17 16:00 U Methamphetamines Scrn NEGATIVE (NEGATIVE) 07/08/17 16:00 U Benzodiazepines Scrn NEGATIVE (NEGATIVE) 07/08/17 16:00 U Cocaine Metab Screen NEGATIVE (NEGATIVE) 07/08/17 16:00 U Cannabinoids Screen POSITIVE (NEGATIVE) H 07/08/17 16:00 Ethyl Alcohol < 10 mg/dL (0-10) 07/08/17 16:44 RPR NONREACTIVE (NONREACTIVE) 07/08/17 16:44 - Physical Exam Vitals and I&O: Vital Signs Temp 97.6 F 07/22/17 06:14 Pulse 60 07/22/17 06:14 Resp 20 07/22/17 11:44 BP 118/73 07/22/17 06:14 Pulse Ox 99 07/22/17 06:14 Intake & Output 07/21/17 07/22/17 07/22/17 18:59 06:59 18:59 Intake Total 1200 720 Balance 1200 720 Intake: Oral 1200 720 Other: # Voids 4 3 # Bowel Movements 1 1 Active Medications: Current Medications Acetaminophen (Tylenol) 650 mg PO Q4HR PRN PRN Reason: Mild Pain / Temp above 100 Stop: 09/06/17 18:47 Al Hydrox/Mg Hydrox/Simethicone (Maalox) 30 ml PO Q4HR PRN PRN Reason: GI DISTRESS Stop: 09/06/17 18:47 Divalproex Sodium (Depakote Dr) 500 mg PO BID KATHIE PRN Reason: Protocol Stop: 09/12/17 16:59 Last Admin: 07/22/17 08:23 Dose: Not Given Loratadine (Claritin) 10 mg PO DAILY PRN PRN Reason: Allergy Symptoms Stop: 09/10/17 08:46 Lorazepam (Ativan) 0.5 mg PO Q4HR PRN; Protocol PRN Reason: Agitation Stop: 08/07/17 18:47 Last Admin: 07/10/17 08:05 Dose: 0.5 mg Magnesium Hydroxide (Milk Of Magnesia) 30 ml PO HS PRN PRN Reason: Constipation Multivitamins/Vitamin C (Theragran) 1 tab PO DAILY [facility] Stop: 09/07/17 08:59 Last Admin: 07/22/17 08:23 Dose: Not Given Risperidone (Risperdal) 6 mg PO DAILY [facility] Stop: 09/15/17 15:55 Last Admin: 07/22/17 08:23 Dose: Not Given Zolpidem Tartrate (Ambien) 5 mg PO HS PRN PRN Reason: Insomnia Stop: 09/06/17 18:47 Last Admin: 07/15/17 21:20 Dose: 5 mg General: Alert, No acute distress HEENT: Atraumatic, PERRLA Cardiovascular: Regular rate Lungs: Clear to auscultation Abdomen: Bowel sounds, Soft Extremities: Other (No edema) Neurological: Normal gait Skin: Other (Warm and dry) Psych/Mental Status: Other (Confused, not oriented) Assessment/Plan - Assessment Assessment: Patient is awake, alert, agitated at moments. DX: Psychosis, HTN. - Plan Plan: Patient is under Psychiatric care, continue with SNF meds. Will continue to monitor. Nutritional Asmnt/Malnutr-PDOC - Dietary Evaluation Malnutrition Findings (Please click <Entered> for more info): Nutritional Asmnt/Malnutrition Start: 07/15/17 16: 48 Text: Status: Complete Freq: Document 07/15/17 16:54 LCHENG (Rec: 07/15/17 16:57 LCHENG [email or web address]) Nutritional Asmnt/Malnutrition Patient General Information Nutritional Screening Low Risk Diagnosis Homicidal ideation, agitation Pertinent Medical Hx/Surgical Hx CAD, HTN, schizophrenia Subjective Information Per EMR, PO intake 100% of meals. Current Diet Order/ Nutrition Support regualr Pertinent Medications theragran Pertinent Labs 07/08 glucose 109, A1c 5.5, alb 4.0 Nutritional Hx/Data Height 1.68 m Height (Calculated Centimeters) 167.6 Current Weight (lbs) 68.039 kg Weight (Calculated Kilograms) 68.0 Weight (Calculated Grams) 56966.9 [place] Body Weight 142 Body Mass Index (BMI) 24.2 Weight Status Approriate GI Symptoms GI Symptoms None Last BM 07/14 Difficult in: None Skin Integrity/Comment: intact Current %PO Good (75-100%) Estimated Nutritional Goals BEE in Kcals: Using Current wt Calories/Kcals/Kg 25-30 Kcals Calculated 3851-7187 Protein: Using Current wt Protein g/k Protein Calculated 68 Fluid: ml 1700-2040ml (1ml/kcal) Nutritional Problem No current Nutrition Prob Problem N/A Malnutrition Alert Protein-Calorie Malnutrition N/A Is there a minimum of two criteria No selected? Query Text:Check all the applicable criteria. A minimum of two criteria are recommended for diagnosis of either severe or non-severe malnutrition. Intervention/Recommendation Comments 1. Continue with current diet as ordered. 2. Monitor PO intake, wt, labs and skin integrity 3. F/U as low risk in 7ddays, 07/22 Expected Outcomes/Goals Expected Outcomes/Goals 1. PO intake to meet at least 75% of nutritional needs. 2. Wt stability, skin to remain intact, labs to approach WNL.
--- NOTE | 2017-07-22 18:26 | Progress Notes ---
DATE: 07/22/2017 The patient seen, chart reviewed, discussed with staff. The patient was seen today, 07/22/2017, remains delusional, still wanting to kill [id number] with "my finger and peace and love" and "love and kindness." The patient is bizarre, grandiose, delusion, still talking about the [place], also refusing medications, states that there is nothing wrong with him. He is not mentally ill. The patient continues to talk about an earthquake in [place] on September 18. The patient is pacing, sleeping well, eating well, no agitation, no dangerous behaviors on the unit. ASSESSMENT: The patient remains homicidal, bizarre, grandiose, delusional, disorganized. PLAN: We will fill out a [employer] petition. The patient is refusing treatment. JOB# [id number]
--- NOTE | 2017-07-23 09:00 | General Progress Note ---
Subjective - Review of Systems Service Date: 07/23/17 Subjective: I fell better. Objective - Results Result Diagrams: 07/08/17 16:44 07/08/17 16:44 Recent Labs: Laboratory Last Values WBC 7.1 Th/cmm (4.8-10.8) 07/08/17 16:44 RBC 4.67 Mil/cmm (4.30-5.70) 07/08/17 16:44 Hgb 14.2 gm/dL (12-16) 07/08/17 16:44 Hct 42.7 % (41.0-60) 07/08/17 16:44 MCV 91.4 fl (80-99) 07/08/17 16:44 MCH 30.4 pg (26.0-30.0) H 07/08/17 16:44 MCHC Differential 33.3 pg (28.0-36.0) 07/08/17 16:44 RDW 12.3 % (11.5-20.0) 07/08/17 16:44 Plt Count 288 Th/cmm (150-400) 07/08/17 16:44 MPV 7.0 fl 07/08/17 16:44 Neutrophils % 55.9 % (40.0-80.0) 07/08/17 16:44 Lymphocytes % 26.2 % (20.0-50.0) 07/08/17 16:44 Monocytes % 10.9 % (2.0-10.0) H 07/08/17 16:44 Eosinophils % 6.9 % (0.0-5.0) H 07/08/17 16:44 Basophils % 0.1 % (0.0-2.0) 07/08/17 16:44 Sodium 138 mEq/L (136-145) 07/08/17 16:44 Potassium 4.6 mEq/L (3.5-5.1) 07/08/17 16:44 Chloride 105 mEq/L (98-107) 07/08/17 16:44 Carbon Dioxide 29.3 mEq/L (21.0-31.0) 07/08/17 16:44 Anion Gap 8.3 (7.0-16.0) 07/08/17 16:44 BUN 17 mg/dL (7-25) 07/08/17 16:44 Creatinine 1.0 mg/dL (0.7-1.3) 07/08/17 16:44 Est GFR ( Amer) > 60.0 ml/min (>90) 07/08/17 16:44 Est GFR (Non-Af Amer) > 60.0 ml/min 07/08/17 16:44 BUN/Creatinine Ratio 17.0 07/08/17 16:44 Glucose 109 mg/dL (70-105) H 07/08/17 16:44 Hemoglobin A1c % 5.5 % (4.0-6.0) 07/08/17 16:44 Calcium 10.2 mg/dL (8.6-10.3) 07/08/17 16:44 Total Bilirubin 0.5 mg/dL (0.3-1.0) 07/08/17 16:44 AST 14 U/L (13-39) 07/08/17 16:44 ALT 14 U/L (7-52) 07/08/17 16:44 Alkaline Phosphatase 68 U/L (34-104) 07/08/17 16:44 Total Protein 6.9 gm/dL (6.0-8.3) 07/08/17 16:44 Albumin 4.0 gm/dL (4.2-5.5) L 07/08/17 16:44 Globulin 2.9 gm/dL 07/08/17 16:44 Albumin/Globulin Ratio 1.4 (1.0-1.8) 07/08/17 16:44 Triglycerides 86 mg/dL (<150) 07/08/17 16:44 Cholesterol 160 mg/dL (<200) 07/08/17 16:44 LDL Cholesterol Direct 100 mg/dL (75-193) 07/08/17 16:44 HDL Cholesterol 47 mg/dL (23-92) 07/08/17 16:44 TSH 0.44 uIU/ml (0.34-5.60) 07/08/17 16:44 Urine Source CLEAN C 07/08/17 16:00 Urine Color YELLOW 07/08/17 16:00 Urine Clarity CLEAR (CLEAR) 07/08/17 16:00 Urine pH 7.0 (4.6 - 8.0) 07/08/17 16:00 Ur Specific [place] 1.020 (1.005-1.030) 07/08/17 16:00 Urine Protein NEGATIVE mg/dL (NEGATIVE) 07/08/17 16:00 Urine Glucose (UA) NEGATIVE mg/dL (NEGATIVE) 07/08/17 16:00 Urine Ketones NEGATIVE mg/dL (NEGATIVE) 07/08/17 16:00 Urine Blood NEGATIVE (NEGATIVE) 07/08/17 16:00 Urine Nitrate NEGATIVE (NEGATIVE) 07/08/17 16:00 Urine Bilirubin NEGATIVE (NEGATIVE) 07/08/17 16:00 Urine Urobilinogen 0.2 E.U./dL (0.2 - 1.0) 07/08/17 16:00 Ur Leukocyte Esterase NEGATIVE (NEGATIVE) 07/08/17 16:00 Urine RBC NONE SEEN /hpf (0-5) 07/08/17 16:00 Urine WBC NONE SEEN /hpf (0-5) 07/08/17 16:00 Ur Epithelial Cells NONE SEEN /lpf (FEW) 07/08/17 16:00 Urine Bacteria NONE SEEN /hpf (NONE SEEN) 07/08/17 16:00 Salicylates < 25.0 mg/L (30.0-100.0) L 07/08/17 16:44 Urine Opiates Screen NEGATIVE (NEGATIVE) 07/08/17 16:00 Urine Methadone Screen NEGATIVE (NEGATIVE) 07/08/17 16:00 Acetaminophen < 10.0 ug/mL (10.0-30.0) L 07/08/17 16:44 Ur Barbiturates Screen NEGATIVE (NEGATIVE) 07/08/17 16:00 Valproic Acid < 10.0 ug/mL (50.0-100.0) L 07/14/17 12:31 Ur Tricyclics Screen NEGATIVE (NEGATIVE) 07/08/17 16:00 Ur Phencyclidine Scrn NEGATIVE (NEGATIVE) 07/08/17 16:00 Amphetamines Screen NEGATIVE (NEGATIVE) 07/08/17 16:00 U Methamphetamines Scrn NEGATIVE (NEGATIVE) 07/08/17 16:00 U Benzodiazepines Scrn NEGATIVE (NEGATIVE) 07/08/17 16:00 U Cocaine Metab Screen NEGATIVE (NEGATIVE) 07/08/17 16:00 U Cannabinoids Screen POSITIVE (NEGATIVE) H 07/08/17 16:00 Ethyl Alcohol < 10 mg/dL (0-10) 07/08/17 16:44 RPR NONREACTIVE (NONREACTIVE) 07/08/17 16:44 - Physical Exam Vitals and I&O: Vital Signs Temp 98.1 F 07/23/17 06:38 Pulse 65 07/23/17 06:38 Resp 20 07/23/17 06:38 BP 112/68 07/23/17 06:38 Pulse Ox 100 07/23/17 06:38 Intake & Output 07/22/17 07/23/17 07/23/17 18:59 06:59 18:59 Intake Total 1200 360 Balance 1200 360 Intake: Oral 1200 360 Other: # Voids 3 3 # Bowel Movements 1 Active Medications: Current Medications Acetaminophen (Tylenol) 650 mg PO Q4HR PRN PRN Reason: Mild Pain / Temp above 100 Stop: 09/06/17 18:47 Al Hydrox/Mg Hydrox/Simethicone (Maalox) 30 ml PO Q4HR PRN PRN Reason: GI DISTRESS Stop: 09/06/17 18:47 Divalproex Sodium (Depakote Dr) 500 mg PO BID KATHIE PRN Reason: Protocol Stop: 09/12/17 16:59 Last Admin: 07/22/17 16:28 Dose: Not Given Loratadine (Claritin) 10 mg PO DAILY PRN PRN Reason: Allergy Symptoms Stop: 09/10/17 08:46 Lorazepam (Ativan) 0.5 mg PO Q4HR PRN; Protocol PRN Reason: Agitation Stop: 08/07/17 18:47 Last Admin: 07/10/17 08:05 Dose: 0.5 mg Magnesium Hydroxide (Milk Of Magnesia) 30 ml PO HS PRN PRN Reason: Constipation Multivitamins/Vitamin C (Theragran) 1 tab PO DAILY [facility] Stop: 09/07/17 08:59 Last Admin: 07/22/17 08:23 Dose: Not Given Risperidone (Risperdal) 6 mg PO DAILY [facility] Stop: 09/15/17 15:55 Last Admin: 07/22/17 08:23 Dose: Not Given Zolpidem Tartrate (Ambien) 5 mg PO HS PRN PRN Reason: Insomnia Stop: 09/06/17 18:47 Last Admin: 07/15/17 21:20 Dose: 5 mg General: Alert, No acute distress HEENT: Atraumatic, PERRLA Cardiovascular: Regular rate Lungs: Clear to auscultation Abdomen: Bowel sounds, Soft Extremities: Other (No edema) Neurological: Normal gait Skin: Other (Warm and dry) Psych/Mental Status: Other (Confused, not oriented) Assessment/Plan - Assessment Assessment: Patient is awake, alert, agitated at moments. DX: Psychosis, HTN. - Plan Plan: Patient is under Psychiatric care, continue with SNF meds. Will continue to monitor. Nutritional Asmnt/Malnutr-PDOC - Dietary Evaluation Malnutrition Findings (Please click <Entered> for more info): Nutritional Asmnt/Malnutrition Start: 07/15/17 16: 48 Text: Status: Complete Freq: Document 07/15/17 16:54 LCHENG (Rec: 07/15/17 16:57 LCHENG [email or web address]) Nutritional Asmnt/Malnutrition Patient General Information Nutritional Screening Low Risk Diagnosis Homicidal ideation, agitation Pertinent Medical Hx/Surgical Hx CAD, HTN, schizophrenia Subjective Information Per EMR, PO intake 100% of meals. Current Diet Order/ Nutrition Support regualr Pertinent Medications theragran Pertinent Labs 07/08 glucose 109, A1c 5.5, alb 4.0 Nutritional Hx/Data Height 1.68 m Height (Calculated Centimeters) 167.6 Current Weight (lbs) 68.039 kg Weight (Calculated Kilograms) 68.0 Weight (Calculated Grams) 48024.9 [place] Body Weight 142 Body Mass Index (BMI) 24.2 Weight Status Approriate GI Symptoms GI Symptoms None Last BM 07/14 Difficult in: None Skin Integrity/Comment: intact Current %PO Good (75-100%) Estimated Nutritional Goals BEE in Kcals: Using Current wt Calories/Kcals/Kg 25-30 Kcals Calculated 8689-3950 Protein: Using Current wt Protein g/k Protein Calculated 68 Fluid: ml 1700-2040ml (1ml/kcal) Nutritional Problem No current Nutrition Prob Problem N/A Malnutrition Alert Protein-Calorie Malnutrition N/A Is there a minimum of two criteria No selected? Query Text:Check all the applicable criteria. A minimum of two criteria are recommended for diagnosis of either severe or non-severe malnutrition. Intervention/Recommendation Comments 1. Continue with current diet as ordered. 2. Monitor PO intake, wt, labs and skin integrity 3. F/U as low risk in 7ddays, 07/22 Expected Outcomes/Goals Expected Outcomes/Goals 1. PO intake to meet at least 75% of nutritional needs. 2. Wt stability, skin to remain intact, labs to approach WNL.
[2017-07-23] MEDS: risperiDONE 4 mg Tab PO SCH (10:59)
[2017-07-23] MEDS: Multivitamin Tab PO SCH (10:59)
--- NOTE | 2017-07-23 21:22 | Progress Notes ---
DATE: 07/23/2017 The patient unruly, highly disruptive, disrupting the milieu, still homicidal, wanting to kill his [id number] with his finger with "love and kindness." The patient is trying to protect the [place], talking about an earthquake in [place] in August, refusing medications, telling me to go ahead and file a [employer] petition, "I think we should get the court involved." ASSESSMENT: The patient bizarre, grandiose, delusional, very psychotic and homicidal. PLAN: Currently pending [place] hearing. The patient continues to refuse medicine. JOB# [id number]
[2017-07-24] MEDS: risperiDONE 4 mg Tab PO SCH (08:50)
[2017-07-24] MEDS: Multivitamin Tab PO SCH (08:50)
--- NOTE | 2017-07-24 08:53 | General Progress Note ---
Subjective - Review of Systems Service Date: 07/24/17 Subjective: I am ok Objective - Results Result Diagrams: 07/08/17 16:44 07/08/17 16:44 Recent Labs: Laboratory Last Values WBC 7.1 Th/cmm (4.8-10.8) 07/08/17 16:44 RBC 4.67 Mil/cmm (4.30-5.70) 07/08/17 16:44 Hgb 14.2 gm/dL (12-16) 07/08/17 16:44 Hct 42.7 % (41.0-60) 07/08/17 16:44 MCV 91.4 fl (80-99) 07/08/17 16:44 MCH 30.4 pg (26.0-30.0) H 07/08/17 16:44 MCHC Differential 33.3 pg (28.0-36.0) 07/08/17 16:44 RDW 12.3 % (11.5-20.0) 07/08/17 16:44 Plt Count 288 Th/cmm (150-400) 07/08/17 16:44 MPV 7.0 fl 07/08/17 16:44 Neutrophils % 55.9 % (40.0-80.0) 07/08/17 16:44 Lymphocytes % 26.2 % (20.0-50.0) 07/08/17 16:44 Monocytes % 10.9 % (2.0-10.0) H 07/08/17 16:44 Eosinophils % 6.9 % (0.0-5.0) H 07/08/17 16:44 Basophils % 0.1 % (0.0-2.0) 07/08/17 16:44 Sodium 138 mEq/L (136-145) 07/08/17 16:44 Potassium 4.6 mEq/L (3.5-5.1) 07/08/17 16:44 Chloride 105 mEq/L (98-107) 07/08/17 16:44 Carbon Dioxide 29.3 mEq/L (21.0-31.0) 07/08/17 16:44 Anion Gap 8.3 (7.0-16.0) 07/08/17 16:44 BUN 17 mg/dL (7-25) 07/08/17 16:44 Creatinine 1.0 mg/dL (0.7-1.3) 07/08/17 16:44 Est GFR ( Amer) > 60.0 ml/min (>90) 07/08/17 16:44 Est GFR (Non-Af Amer) > 60.0 ml/min 07/08/17 16:44 BUN/Creatinine Ratio 17.0 07/08/17 16:44 Glucose 109 mg/dL (70-105) H 07/08/17 16:44 Hemoglobin A1c % 5.5 % (4.0-6.0) 07/08/17 16:44 Calcium 10.2 mg/dL (8.6-10.3) 07/08/17 16:44 Total Bilirubin 0.5 mg/dL (0.3-1.0) 07/08/17 16:44 AST 14 U/L (13-39) 07/08/17 16:44 ALT 14 U/L (7-52) 07/08/17 16:44 Alkaline Phosphatase 68 U/L (34-104) 07/08/17 16:44 Total Protein 6.9 gm/dL (6.0-8.3) 07/08/17 16:44 Albumin 4.0 gm/dL (4.2-5.5) L 07/08/17 16:44 Globulin 2.9 gm/dL 07/08/17 16:44 Albumin/Globulin Ratio 1.4 (1.0-1.8) 07/08/17 16:44 Triglycerides 86 mg/dL (<150) 07/08/17 16:44 Cholesterol 160 mg/dL (<200) 07/08/17 16:44 LDL Cholesterol Direct 100 mg/dL (75-193) 07/08/17 16:44 HDL Cholesterol 47 mg/dL (23-92) 07/08/17 16:44 TSH 0.44 uIU/ml (0.34-5.60) 07/08/17 16:44 Urine Source CLEAN C 07/08/17 16:00 Urine Color YELLOW 07/08/17 16:00 Urine Clarity CLEAR (CLEAR) 07/08/17 16:00 Urine pH 7.0 (4.6 - 8.0) 07/08/17 16:00 Ur Specific [place] 1.020 (1.005-1.030) 07/08/17 16:00 Urine Protein NEGATIVE mg/dL (NEGATIVE) 07/08/17 16:00 Urine Glucose (UA) NEGATIVE mg/dL (NEGATIVE) 07/08/17 16:00 Urine Ketones NEGATIVE mg/dL (NEGATIVE) 07/08/17 16:00 Urine Blood NEGATIVE (NEGATIVE) 07/08/17 16:00 Urine Nitrate NEGATIVE (NEGATIVE) 07/08/17 16:00 Urine Bilirubin NEGATIVE (NEGATIVE) 07/08/17 16:00 Urine Urobilinogen 0.2 E.U./dL (0.2 - 1.0) 07/08/17 16:00 Ur Leukocyte Esterase NEGATIVE (NEGATIVE) 07/08/17 16:00 Urine RBC NONE SEEN /hpf (0-5) 07/08/17 16:00 Urine WBC NONE SEEN /hpf (0-5) 07/08/17 16:00 Ur Epithelial Cells NONE SEEN /lpf (FEW) 07/08/17 16:00 Urine Bacteria NONE SEEN /hpf (NONE SEEN) 07/08/17 16:00 Salicylates < 25.0 mg/L (30.0-100.0) L 07/08/17 16:44 Urine Opiates Screen NEGATIVE (NEGATIVE) 07/08/17 16:00 Urine Methadone Screen NEGATIVE (NEGATIVE) 07/08/17 16:00 Acetaminophen < 10.0 ug/mL (10.0-30.0) L 07/08/17 16:44 Ur Barbiturates Screen NEGATIVE (NEGATIVE) 07/08/17 16:00 Valproic Acid < 10.0 ug/mL (50.0-100.0) L 07/14/17 12:31 Ur Tricyclics Screen NEGATIVE (NEGATIVE) 07/08/17 16:00 Ur Phencyclidine Scrn NEGATIVE (NEGATIVE) 07/08/17 16:00 Amphetamines Screen NEGATIVE (NEGATIVE) 07/08/17 16:00 U Methamphetamines Scrn NEGATIVE (NEGATIVE) 07/08/17 16:00 U Benzodiazepines Scrn NEGATIVE (NEGATIVE) 07/08/17 16:00 U Cocaine Metab Screen NEGATIVE (NEGATIVE) 07/08/17 16:00 U Cannabinoids Screen POSITIVE (NEGATIVE) H 07/08/17 16:00 Ethyl Alcohol < 10 mg/dL (0-10) 07/08/17 16:44 RPR NONREACTIVE (NONREACTIVE) 07/08/17 16:44 - Physical Exam Vitals and I&O: Vital Signs Temp 97.8 F 07/24/17 06:45 Pulse 88 07/24/17 06:45 Resp 20 07/24/17 06:45 BP 127/77 07/24/17 06:45 Pulse Ox 100 07/24/17 06:45 Intake & Output 07/23/17 07/24/17 07/24/17 18:59 06:59 18:59 Intake Total 1200 240 Balance 1200 240 Intake: Oral 1200 240 Other: # Voids 3 1 # Bowel Movements 1 Stool Characteristics Soft Soft Active Medications: Current Medications Acetaminophen (Tylenol) 650 mg PO Q4HR PRN PRN Reason: Mild Pain / Temp above 100 Stop: 09/06/17 18:47 Al Hydrox/Mg Hydrox/Simethicone (Maalox) 30 ml PO Q4HR PRN PRN Reason: GI DISTRESS Stop: 09/06/17 18:47 Divalproex Sodium (Depakote Dr) 500 mg PO BID KATHIE PRN Reason: Protocol Stop: 09/12/17 16:59 Last Admin: 07/24/17 08:50 Dose: Not Given Loratadine (Claritin) 10 mg PO DAILY PRN PRN Reason: Allergy Symptoms Stop: 09/10/17 08:46 Lorazepam (Ativan) 0.5 mg PO Q4HR PRN; Protocol PRN Reason: Agitation Stop: 08/07/17 18:47 Last Admin: 07/10/17 08:05 Dose: 0.5 mg Magnesium Hydroxide (Milk Of Magnesia) 30 ml PO HS PRN PRN Reason: Constipation Multivitamins/Vitamin C (Theragran) 1 tab PO DAILY [facility] Stop: 09/07/17 08:59 Last Admin: 07/24/17 08:50 Dose: Not Given Risperidone (Risperdal) 6 mg PO DAILY [facility] Stop: 09/15/17 15:55 Last Admin: 07/24/17 08:50 Dose: Not Given Zolpidem Tartrate (Ambien) 5 mg PO HS PRN PRN Reason: Insomnia Stop: 09/06/17 18:47 Last Admin: 07/15/17 21:20 Dose: 5 mg General: Alert, No acute distress HEENT: Atraumatic, PERRLA Cardiovascular: Regular rate Lungs: Clear to auscultation Abdomen: Bowel sounds, Soft Extremities: Other (No edema) Neurological: Normal gait Skin: Other (Warm and dry) Psych/Mental Status: Other (Confused, not oriented) Assessment/Plan - Assessment Assessment: Patient is awake, alert, agitated at moments. DX: Psychosis, HTN. - Plan Plan: Patient is under Psychiatric care, continue with SNF meds. Will continue to monitor. Nutritional Asmnt/Malnutr-PDOC - Dietary Evaluation Malnutrition Findings (Please click <Entered> for more info): Nutritional Asmnt/Malnutrition Start: 07/15/17 16: 48 Text: Status: Complete Freq: Document 07/15/17 16:54 LCHENG (Rec: 07/15/17 16:57 [email or web address] [id number]) Nutritional Asmnt/Malnutrition Patient General Information Nutritional Screening Low Risk Diagnosis Homicidal ideation, agitation Pertinent Medical Hx/Surgical Hx CAD, HTN, schizophrenia Subjective Information Per EMR, PO intake 100% of meals. Current Diet Order/ Nutrition Support regualr Pertinent Medications theragran Pertinent Labs 07/08 glucose 109, A1c 5.5, alb 4.0 Nutritional Hx/Data Height 1.68 m Height (Calculated Centimeters) 167.6 Current Weight (lbs) 68.039 kg Weight (Calculated Kilograms) 68.0 Weight (Calculated Grams) 49489.9 [place] Body Weight 142 Body Mass Index (BMI) 24.2 Weight Status Approriate GI Symptoms GI Symptoms None Last BM 07/14 Difficult in: None Skin Integrity/Comment: intact Current %PO Good (75-100%) Estimated Nutritional Goals BEE in Kcals: Using Current wt Calories/Kcals/Kg 25-30 Kcals Calculated 2247-2156 Protein: Using Current wt Protein g/k Protein Calculated 68 Fluid: ml 1700-2040ml (1ml/kcal) Nutritional Problem No current Nutrition Prob Problem N/A Malnutrition Alert Protein-Calorie Malnutrition N/A Is there a minimum of two criteria No selected? Query Text:Check all the applicable criteria. A minimum of two criteria are recommended for diagnosis of either severe or non-severe malnutrition. Intervention/Recommendation Comments 1. Continue with current diet as ordered. 2. Monitor PO intake, wt, labs and skin integrity 3. F/U as low risk in 7ddays, 07/22 Expected Outcomes/Goals Expected Outcomes/Goals 1. PO intake to meet at least 75% of nutritional needs. 2. Wt stability, skin to remain intact, labs to approach WNL.
--- NOTE | 2017-07-24 17:50 | Progress Notes ---
DATE: 07/24/2017 The patient remains unruly, disruptive, still homicidal, talking about the [employer], refusing to take medications, looking forward to the court date; court date next week for the [place] hearing. The patient remains dangerous, still making homicidal statements. Medications are noted, but he is refusing. ASSESSMENT: The patient is bizarre, grandiose, delusional homicidal. PLAN: [place] hearing scheduled for Thursday. JOB# [id number]
[2017-07-25] MEDS: Multivitamin Tab PO SCH ×2 (08:58→09:03)
[2017-07-25] MEDS: risperiDONE 4 mg Tab PO SCH ×2 (08:59→09:03)
--- NOTE | 2017-07-25 10:20 | General Progress Note ---
Subjective - Review of Systems Service Date: 07/25/17 Subjective: I am ok Objective - Results Result Diagrams: 07/08/17 16:44 07/08/17 16:44 Recent Labs: Laboratory Last Values WBC 7.1 Th/cmm (4.8-10.8) 07/08/17 16:44 RBC 4.67 Mil/cmm (4.30-5.70) 07/08/17 16:44 Hgb 14.2 gm/dL (12-16) 07/08/17 16:44 Hct 42.7 % (41.0-60) 07/08/17 16:44 MCV 91.4 fl (80-99) 07/08/17 16:44 MCH 30.4 pg (26.0-30.0) H 07/08/17 16:44 MCHC Differential 33.3 pg (28.0-36.0) 07/08/17 16:44 RDW 12.3 % (11.5-20.0) 07/08/17 16:44 Plt Count 288 Th/cmm (150-400) 07/08/17 16:44 MPV 7.0 fl 07/08/17 16:44 Neutrophils % 55.9 % (40.0-80.0) 07/08/17 16:44 Lymphocytes % 26.2 % (20.0-50.0) 07/08/17 16:44 Monocytes % 10.9 % (2.0-10.0) H 07/08/17 16:44 Eosinophils % 6.9 % (0.0-5.0) H 07/08/17 16:44 Basophils % 0.1 % (0.0-2.0) 07/08/17 16:44 Sodium 138 mEq/L (136-145) 07/08/17 16:44 Potassium 4.6 mEq/L (3.5-5.1) 07/08/17 16:44 Chloride 105 mEq/L (98-107) 07/08/17 16:44 Carbon Dioxide 29.3 mEq/L (21.0-31.0) 07/08/17 16:44 Anion Gap 8.3 (7.0-16.0) 07/08/17 16:44 BUN 17 mg/dL (7-25) 07/08/17 16:44 Creatinine 1.0 mg/dL (0.7-1.3) 07/08/17 16:44 Est GFR ( Amer) > 60.0 ml/min (>90) 07/08/17 16:44 Est GFR (Non-Af Amer) > 60.0 ml/min 07/08/17 16:44 BUN/Creatinine Ratio 17.0 07/08/17 16:44 Glucose 109 mg/dL (70-105) H 07/08/17 16:44 Hemoglobin A1c % 5.5 % (4.0-6.0) 07/08/17 16:44 Calcium 10.2 mg/dL (8.6-10.3) 07/08/17 16:44 Total Bilirubin 0.5 mg/dL (0.3-1.0) 07/08/17 16:44 AST 14 U/L (13-39) 07/08/17 16:44 ALT 14 U/L (7-52) 07/08/17 16:44 Alkaline Phosphatase 68 U/L (34-104) 07/08/17 16:44 Total Protein 6.9 gm/dL (6.0-8.3) 07/08/17 16:44 Albumin 4.0 gm/dL (4.2-5.5) L 07/08/17 16:44 Globulin 2.9 gm/dL 07/08/17 16:44 Albumin/Globulin Ratio 1.4 (1.0-1.8) 07/08/17 16:44 Triglycerides 86 mg/dL (<150) 07/08/17 16:44 Cholesterol 160 mg/dL (<200) 07/08/17 16:44 LDL Cholesterol Direct 100 mg/dL (75-193) 07/08/17 16:44 HDL Cholesterol 47 mg/dL (23-92) 07/08/17 16:44 TSH 0.44 uIU/ml (0.34-5.60) 07/08/17 16:44 Urine Source CLEAN C 07/08/17 16:00 Urine Color YELLOW 07/08/17 16:00 Urine Clarity CLEAR (CLEAR) 07/08/17 16:00 Urine pH 7.0 (4.6 - 8.0) 07/08/17 16:00 Ur Specific [place] 1.020 (1.005-1.030) 07/08/17 16:00 Urine Protein NEGATIVE mg/dL (NEGATIVE) 07/08/17 16:00 Urine Glucose (UA) NEGATIVE mg/dL (NEGATIVE) 07/08/17 16:00 Urine Ketones NEGATIVE mg/dL (NEGATIVE) 07/08/17 16:00 Urine Blood NEGATIVE (NEGATIVE) 07/08/17 16:00 Urine Nitrate NEGATIVE (NEGATIVE) 07/08/17 16:00 Urine Bilirubin NEGATIVE (NEGATIVE) 07/08/17 16:00 Urine Urobilinogen 0.2 E.U./dL (0.2 - 1.0) 07/08/17 16:00 Ur Leukocyte Esterase NEGATIVE (NEGATIVE) 07/08/17 16:00 Urine RBC NONE SEEN /hpf (0-5) 07/08/17 16:00 Urine WBC NONE SEEN /hpf (0-5) 07/08/17 16:00 Ur Epithelial Cells NONE SEEN /lpf (FEW) 07/08/17 16:00 Urine Bacteria NONE SEEN /hpf (NONE SEEN) 07/08/17 16:00 Salicylates < 25.0 mg/L (30.0-100.0) L 07/08/17 16:44 Urine Opiates Screen NEGATIVE (NEGATIVE) 07/08/17 16:00 Urine Methadone Screen NEGATIVE (NEGATIVE) 07/08/17 16:00 Acetaminophen < 10.0 ug/mL (10.0-30.0) L 07/08/17 16:44 Ur Barbiturates Screen NEGATIVE (NEGATIVE) 07/08/17 16:00 Valproic Acid < 10.0 ug/mL (50.0-100.0) L 07/14/17 12:31 Ur Tricyclics Screen NEGATIVE (NEGATIVE) 07/08/17 16:00 Ur Phencyclidine Scrn NEGATIVE (NEGATIVE) 07/08/17 16:00 Amphetamines Screen NEGATIVE (NEGATIVE) 07/08/17 16:00 U Methamphetamines Scrn NEGATIVE (NEGATIVE) 07/08/17 16:00 U Benzodiazepines Scrn NEGATIVE (NEGATIVE) 07/08/17 16:00 U Cocaine Metab Screen NEGATIVE (NEGATIVE) 07/08/17 16:00 U Cannabinoids Screen POSITIVE (NEGATIVE) H 07/08/17 16:00 Ethyl Alcohol < 10 mg/dL (0-10) 07/08/17 16:44 RPR NONREACTIVE (NONREACTIVE) 07/08/17 16:44 - Physical Exam Vitals and I&O: Vital Signs Temp 97.9 F 07/25/17 06:36 Pulse 95 07/25/17 06:36 Resp 18 07/25/17 06:36 BP 116/76 07/25/17 06:36 Pulse Ox 98 07/24/17 15:34 Intake & Output 07/24/17 07/25/17 07/25/17 18:59 06:59 18:59 Intake Total 1200 Balance 1200 Intake: Oral 1200 Other: # Voids 3 # Bowel Movements 1 Stool Characteristics Soft Active Medications: Current Medications Acetaminophen (Tylenol) 650 mg PO Q4HR PRN PRN Reason: Mild Pain / Temp above 100 Stop: 09/06/17 18:47 Al Hydrox/Mg Hydrox/Simethicone (Maalox) 30 ml PO Q4HR PRN PRN Reason: GI DISTRESS Stop: 09/06/17 18:47 Divalproex Sodium (Depakote Dr) 500 mg PO BID KATHIE PRN Reason: Protocol Stop: 09/12/17 16:59 Last Admin: 07/25/17 09:03 Dose: Not Given Loratadine (Claritin) 10 mg PO DAILY PRN PRN Reason: Allergy Symptoms Stop: 09/10/17 08:46 Lorazepam (Ativan) 0.5 mg PO Q4HR PRN; Protocol PRN Reason: Agitation Stop: 08/07/17 18:47 Last Admin: 07/10/17 08:05 Dose: 0.5 mg Magnesium Hydroxide (Milk Of Magnesia) 30 ml PO HS PRN PRN Reason: Constipation Multivitamins/Vitamin C (Theragran) 1 tab PO DAILY [facility] Stop: 09/07/17 08:59 Last Admin: 07/25/17 09:03 Dose: Not Given Risperidone (Risperdal) 6 mg PO DAILY [facility] Stop: 09/15/17 15:55 Last Admin: 07/25/17 09:03 Dose: Not Given Zolpidem Tartrate (Ambien) 5 mg PO HS PRN PRN Reason: Insomnia Stop: 09/06/17 18:47 Last Admin: 07/15/17 21:20 Dose: 5 mg General: Alert, No acute distress HEENT: Atraumatic, PERRLA Cardiovascular: Regular rate Lungs: Clear to auscultation Abdomen: Bowel sounds, Soft Extremities: Other (No edema) Neurological: Normal gait Skin: Other (Warm and dry) Psych/Mental Status: Other (Confused, not oriented) Assessment/Plan - Assessment Assessment: Patient is awake, alert, agitated at moments. DX: Psychosis, HTN. - Plan Plan: Patient is under Psychiatric care, continue with SNF meds. Will continue to monitor. Nutritional Asmnt/Malnutr-PDOC - Dietary Evaluation Malnutrition Findings (Please click <Entered> for more info): Nutritional Asmnt/Malnutrition Start: 07/15/17 16: 48 Text: Status: Complete Freq: Document 07/15/17 16:54 LCHENG (Rec: 07/15/17 16:57 LCHENG [email or web address]) Nutritional Asmnt/Malnutrition Patient General Information Nutritional Screening Low Risk Diagnosis Homicidal ideation, agitation Pertinent Medical Hx/Surgical Hx CAD, HTN, schizophrenia Subjective Information Per EMR, PO intake 100% of meals. Current Diet Order/ Nutrition Support regualr Pertinent Medications theragran Pertinent Labs 07/08 glucose 109, A1c 5.5, alb 4.0 Nutritional Hx/Data Height 1.68 m Height (Calculated Centimeters) 167.6 Current Weight (lbs) 68.039 kg Weight (Calculated Kilograms) 68.0 Weight (Calculated Grams) 01212.9 [place] Body Weight 142 Body Mass Index (BMI) 24.2 Weight Status Approriate GI Symptoms GI Symptoms None Last BM 07/14 Difficult in: None Skin Integrity/Comment: intact Current %PO Good (75-100%) Estimated Nutritional Goals BEE in Kcals: Using Current wt Calories/Kcals/Kg 25-30 Kcals Calculated 3850-2002 Protein: Using Current wt Protein g/k Protein Calculated 68 Fluid: ml 1700-2040ml (1ml/kcal) Nutritional Problem No current Nutrition Prob Problem N/A Malnutrition Alert Protein-Calorie Malnutrition N/A Is there a minimum of two criteria No selected? Query Text:Check all the applicable criteria. A minimum of two criteria are recommended for diagnosis of either severe or non-severe malnutrition. Intervention/Recommendation Comments 1. Continue with current diet as ordered. 2. Monitor PO intake, wt, labs and skin integrity 3. F/U as low risk in 7ddays, 07/22 Expected Outcomes/Goals Expected Outcomes/Goals 1. PO intake to meet at least 75% of nutritional needs. 2. Wt stability, skin to remain intact, labs to approach WNL.
--- NOTE | 2017-07-25 21:01 | Progress Notes ---
DATE: 07/25/2017 SUBJECTIVE: The patient remains unruly, disruptive, rambling, disorganized, homicidal, still talking about paranoid things, [employer], filling his [id number] with "peace and love." He has been refusing medications. ASSESSMENT: The patient remains symptomatic, highly psychotic, disorganized, delusional, and homicidal. PLAN: We will continue to monitor. [place] hearing is scheduled for Thursday. The patient continues to refuse medications. He is not currently safe for lower level of care at this time. JOB# [id number]
[2017-07-26] MEDS: Multivitamin Tab PO SCH (08:32)
[2017-07-26] MEDS: risperiDONE 4 mg Tab PO SCH (08:33)
--- NOTE | 2017-07-26 10:01 | General Progress Note ---
Subjective - Review of Systems Service Date: 07/26/17 Subjective: I am ok Objective - Results Result Diagrams: 07/08/17 16:44 07/08/17 16:44 Recent Labs: Laboratory Last Values WBC 7.1 Th/cmm (4.8-10.8) 07/08/17 16:44 RBC 4.67 Mil/cmm (4.30-5.70) 07/08/17 16:44 Hgb 14.2 gm/dL (12-16) 07/08/17 16:44 Hct 42.7 % (41.0-60) 07/08/17 16:44 MCV 91.4 fl (80-99) 07/08/17 16:44 MCH 30.4 pg (26.0-30.0) H 07/08/17 16:44 MCHC Differential 33.3 pg (28.0-36.0) 07/08/17 16:44 RDW 12.3 % (11.5-20.0) 07/08/17 16:44 Plt Count 288 Th/cmm (150-400) 07/08/17 16:44 MPV 7.0 fl 07/08/17 16:44 Neutrophils % 55.9 % (40.0-80.0) 07/08/17 16:44 Lymphocytes % 26.2 % (20.0-50.0) 07/08/17 16:44 Monocytes % 10.9 % (2.0-10.0) H 07/08/17 16:44 Eosinophils % 6.9 % (0.0-5.0) H 07/08/17 16:44 Basophils % 0.1 % (0.0-2.0) 07/08/17 16:44 Sodium 138 mEq/L (136-145) 07/08/17 16:44 Potassium 4.6 mEq/L (3.5-5.1) 07/08/17 16:44 Chloride 105 mEq/L (98-107) 07/08/17 16:44 Carbon Dioxide 29.3 mEq/L (21.0-31.0) 07/08/17 16:44 Anion Gap 8.3 (7.0-16.0) 07/08/17 16:44 BUN 17 mg/dL (7-25) 07/08/17 16:44 Creatinine 1.0 mg/dL (0.7-1.3) 07/08/17 16:44 Est GFR ( Amer) > 60.0 ml/min (>90) 07/08/17 16:44 Est GFR (Non-Af Amer) > 60.0 ml/min 07/08/17 16:44 BUN/Creatinine Ratio 17.0 07/08/17 16:44 Glucose 109 mg/dL (70-105) H 07/08/17 16:44 Hemoglobin A1c % 5.5 % (4.0-6.0) 07/08/17 16:44 Calcium 10.2 mg/dL (8.6-10.3) 07/08/17 16:44 Total Bilirubin 0.5 mg/dL (0.3-1.0) 07/08/17 16:44 AST 14 U/L (13-39) 07/08/17 16:44 ALT 14 U/L (7-52) 07/08/17 16:44 Alkaline Phosphatase 68 U/L (34-104) 07/08/17 16:44 Total Protein 6.9 gm/dL (6.0-8.3) 07/08/17 16:44 Albumin 4.0 gm/dL (4.2-5.5) L 07/08/17 16:44 Globulin 2.9 gm/dL 07/08/17 16:44 Albumin/Globulin Ratio 1.4 (1.0-1.8) 07/08/17 16:44 Triglycerides 86 mg/dL (<150) 07/08/17 16:44 Cholesterol 160 mg/dL (<200) 07/08/17 16:44 LDL Cholesterol Direct 100 mg/dL (75-193) 07/08/17 16:44 HDL Cholesterol 47 mg/dL (23-92) 07/08/17 16:44 TSH 0.44 uIU/ml (0.34-5.60) 07/08/17 16:44 Urine Source CLEAN C 07/08/17 16:00 Urine Color YELLOW 07/08/17 16:00 Urine Clarity CLEAR (CLEAR) 07/08/17 16:00 Urine pH 7.0 (4.6 - 8.0) 07/08/17 16:00 Ur Specific [place] 1.020 (1.005-1.030) 07/08/17 16:00 Urine Protein NEGATIVE mg/dL (NEGATIVE) 07/08/17 16:00 Urine Glucose (UA) NEGATIVE mg/dL (NEGATIVE) 07/08/17 16:00 Urine Ketones NEGATIVE mg/dL (NEGATIVE) 07/08/17 16:00 Urine Blood NEGATIVE (NEGATIVE) 07/08/17 16:00 Urine Nitrate NEGATIVE (NEGATIVE) 07/08/17 16:00 Urine Bilirubin NEGATIVE (NEGATIVE) 07/08/17 16:00 Urine Urobilinogen 0.2 E.U./dL (0.2 - 1.0) 07/08/17 16:00 Ur Leukocyte Esterase NEGATIVE (NEGATIVE) 07/08/17 16:00 Urine RBC NONE SEEN /hpf (0-5) 07/08/17 16:00 Urine WBC NONE SEEN /hpf (0-5) 07/08/17 16:00 Ur Epithelial Cells NONE SEEN /lpf (FEW) 07/08/17 16:00 Urine Bacteria NONE SEEN /hpf (NONE SEEN) 07/08/17 16:00 Salicylates < 25.0 mg/L (30.0-100.0) L 07/08/17 16:44 Urine Opiates Screen NEGATIVE (NEGATIVE) 07/08/17 16:00 Urine Methadone Screen NEGATIVE (NEGATIVE) 07/08/17 16:00 Acetaminophen < 10.0 ug/mL (10.0-30.0) L 07/08/17 16:44 Ur Barbiturates Screen NEGATIVE (NEGATIVE) 07/08/17 16:00 Valproic Acid < 10.0 ug/mL (50.0-100.0) L 07/14/17 12:31 Ur Tricyclics Screen NEGATIVE (NEGATIVE) 07/08/17 16:00 Ur Phencyclidine Scrn NEGATIVE (NEGATIVE) 07/08/17 16:00 Amphetamines Screen NEGATIVE (NEGATIVE) 07/08/17 16:00 U Methamphetamines Scrn NEGATIVE (NEGATIVE) 07/08/17 16:00 U Benzodiazepines Scrn NEGATIVE (NEGATIVE) 07/08/17 16:00 U Cocaine Metab Screen NEGATIVE (NEGATIVE) 07/08/17 16:00 U Cannabinoids Screen POSITIVE (NEGATIVE) H 07/08/17 16:00 Ethyl Alcohol < 10 mg/dL (0-10) 07/08/17 16:44 RPR NONREACTIVE (NONREACTIVE) 07/08/17 16:44 - Physical Exam Vitals and I&O: Vital Signs Temp 98.0 F 07/26/17 06:45 Pulse 70 07/26/17 06:45 Resp 20 07/26/17 06:45 BP 102/65 07/26/17 06:45 Pulse Ox 97 07/26/17 06:45 Intake & Output 07/25/17 07/26/17 07/26/17 18:59 06:59 18:59 Intake Total 1200 240 Balance 1200 240 Intake: Oral 1200 240 Other: # Voids 3 1 # Bowel Movements 1 Active Medications: Current Medications Acetaminophen (Tylenol) 650 mg PO Q4HR PRN PRN Reason: Mild Pain / Temp above 100 Stop: 09/06/17 18:47 Al Hydrox/Mg Hydrox/Simethicone (Maalox) 30 ml PO Q4HR PRN PRN Reason: GI DISTRESS Stop: 09/06/17 18:47 Divalproex Sodium (Depakote Dr) 500 mg PO BID KATHIE PRN Reason: Protocol Stop: 09/12/17 16:59 Last Admin: 07/26/17 08:32 Dose: Not Given Loratadine (Claritin) 10 mg PO DAILY PRN PRN Reason: Allergy Symptoms Stop: 09/10/17 08:46 Lorazepam (Ativan) 0.5 mg PO Q4HR PRN; Protocol PRN Reason: Agitation Stop: 08/07/17 18:47 Last Admin: 07/10/17 08:05 Dose: 0.5 mg Magnesium Hydroxide (Milk Of Magnesia) 30 ml PO HS PRN PRN Reason: Constipation Multivitamins/Vitamin C (Theragran) 1 tab PO DAILY [facility] Stop: 09/07/17 08:59 Last Admin: 07/26/17 08:32 Dose: Not Given Risperidone (Risperdal) 6 mg PO DAILY [facility] Stop: 09/15/17 15:55 Last Admin: 07/26/17 08:33 Dose: Not Given Zolpidem Tartrate (Ambien) 5 mg PO HS PRN PRN Reason: Insomnia Stop: 09/06/17 18:47 Last Admin: 07/15/17 21:20 Dose: 5 mg General: Alert, No acute distress HEENT: Atraumatic, PERRLA Cardiovascular: Regular rate Lungs: Clear to auscultation Abdomen: Bowel sounds, Soft Extremities: Other (No edema) Neurological: Normal gait Skin: Other (Warm and dry) Psych/Mental Status: Other (Confused, not oriented) Assessment/Plan - Assessment Assessment: Patient is awake, alert, agitated at moments. DX: Psychosis, HTN. - Plan Plan: Patient is under Psychiatric care, continue with SNF meds. Will continue to monitor. Nutritional Asmnt/Malnutr-PDOC - Dietary Evaluation Malnutrition Findings (Please click <Entered> for more info): Nutritional Asmnt/Malnutrition Start: 07/15/17 16: 48 Text: Status: Complete Freq: Document 07/15/17 16:54 LCHENG (Rec: 07/15/17 16:57 LCHENG [email or web address]) Nutritional Asmnt/Malnutrition Patient General Information Nutritional Screening Low Risk Diagnosis Homicidal ideation, agitation Pertinent Medical Hx/Surgical Hx CAD, HTN, schizophrenia Subjective Information Per EMR, PO intake 100% of meals. Current Diet Order/ Nutrition Support regualr Pertinent Medications theragran Pertinent Labs 07/08 glucose 109, A1c 5.5, alb 4.0 Nutritional Hx/Data Height 1.68 m Height (Calculated Centimeters) 167.6 Current Weight (lbs) 68.039 kg Weight (Calculated Kilograms) 68.0 Weight (Calculated Grams) 16597.9 [place] Body Weight 142 Body Mass Index (BMI) 24.2 Weight Status Approriate GI Symptoms GI Symptoms None Last BM 07/14 Difficult in: None Skin Integrity/Comment: intact Current %PO Good (75-100%) Estimated Nutritional Goals BEE in Kcals: Using Current wt Calories/Kcals/Kg 25-30 Kcals Calculated 4266-9396 Protein: Using Current wt Protein g/k Protein Calculated 68 Fluid: ml 1700-2040ml (1ml/kcal) Nutritional Problem No current Nutrition Prob Problem N/A Malnutrition Alert Protein-Calorie Malnutrition N/A Is there a minimum of two criteria No selected? Query Text:Check all the applicable criteria. A minimum of two criteria are recommended for diagnosis of either severe or non-severe malnutrition. Intervention/Recommendation Comments 1. Continue with current diet as ordered. 2. Monitor PO intake, wt, labs and skin integrity 3. F/U as low risk in 7ddays, 07/22 Expected Outcomes/Goals Expected Outcomes/Goals 1. PO intake to meet at least 75% of nutritional needs. 2. Wt stability, skin to remain intact, labs to approach WNL.
--- NOTE | 2017-07-26 16:55 | Progress Notes ---
DATE: 07/26/2017 The patient remains homicidal, psychotic, disorganized, delusional, talking about his [id number], killing his [id number] with "peace and love." grandiose. Consistently refusing medications. Sleeping on exam, refusing to speak with me. ASSESSMENT: The patient remains symptomatic, disorganized, delusional, homicidal. PLAN: We are pending a [place] hearing. Staff concerned due to his medication refusals. JOB# [id number]
[2017-07-27] MEDS: Multivitamin Tab PO SCH (09:24)
[2017-07-27] MEDS: risperiDONE 4 mg Tab PO SCH (09:24)
--- NOTE | 2017-07-27 09:30 | General Progress Note ---
Subjective - Review of Systems Service Date: 07/27/17 Subjective: I am ok Objective - Results Result Diagrams: 07/08/17 16:44 07/08/17 16:44 Recent Labs: Laboratory Last Values WBC 7.1 Th/cmm (4.8-10.8) 07/08/17 16:44 RBC 4.67 Mil/cmm (4.30-5.70) 07/08/17 16:44 Hgb 14.2 gm/dL (12-16) 07/08/17 16:44 Hct 42.7 % (41.0-60) 07/08/17 16:44 MCV 91.4 fl (80-99) 07/08/17 16:44 MCH 30.4 pg (26.0-30.0) H 07/08/17 16:44 MCHC Differential 33.3 pg (28.0-36.0) 07/08/17 16:44 RDW 12.3 % (11.5-20.0) 07/08/17 16:44 Plt Count 288 Th/cmm (150-400) 07/08/17 16:44 MPV 7.0 fl 07/08/17 16:44 Neutrophils % 55.9 % (40.0-80.0) 07/08/17 16:44 Lymphocytes % 26.2 % (20.0-50.0) 07/08/17 16:44 Monocytes % 10.9 % (2.0-10.0) H 07/08/17 16:44 Eosinophils % 6.9 % (0.0-5.0) H 07/08/17 16:44 Basophils % 0.1 % (0.0-2.0) 07/08/17 16:44 Sodium 138 mEq/L (136-145) 07/08/17 16:44 Potassium 4.6 mEq/L (3.5-5.1) 07/08/17 16:44 Chloride 105 mEq/L (98-107) 07/08/17 16:44 Carbon Dioxide 29.3 mEq/L (21.0-31.0) 07/08/17 16:44 Anion Gap 8.3 (7.0-16.0) 07/08/17 16:44 BUN 17 mg/dL (7-25) 07/08/17 16:44 Creatinine 1.0 mg/dL (0.7-1.3) 07/08/17 16:44 Est GFR ( Amer) > 60.0 ml/min (>90) 07/08/17 16:44 Est GFR (Non-Af Amer) > 60.0 ml/min 07/08/17 16:44 BUN/Creatinine Ratio 17.0 07/08/17 16:44 Glucose 109 mg/dL (70-105) H 07/08/17 16:44 Hemoglobin A1c % 5.5 % (4.0-6.0) 07/08/17 16:44 Calcium 10.2 mg/dL (8.6-10.3) 07/08/17 16:44 Total Bilirubin 0.5 mg/dL (0.3-1.0) 07/08/17 16:44 AST 14 U/L (13-39) 07/08/17 16:44 ALT 14 U/L (7-52) 07/08/17 16:44 Alkaline Phosphatase 68 U/L (34-104) 07/08/17 16:44 Total Protein 6.9 gm/dL (6.0-8.3) 07/08/17 16:44 Albumin 4.0 gm/dL (4.2-5.5) L 07/08/17 16:44 Globulin 2.9 gm/dL 07/08/17 16:44 Albumin/Globulin Ratio 1.4 (1.0-1.8) 07/08/17 16:44 Triglycerides 86 mg/dL (<150) 07/08/17 16:44 Cholesterol 160 mg/dL (<200) 07/08/17 16:44 LDL Cholesterol Direct 100 mg/dL (75-193) 07/08/17 16:44 HDL Cholesterol 47 mg/dL (23-92) 07/08/17 16:44 TSH 0.44 uIU/ml (0.34-5.60) 07/08/17 16:44 Urine Source CLEAN C 07/08/17 16:00 Urine Color YELLOW 07/08/17 16:00 Urine Clarity CLEAR (CLEAR) 07/08/17 16:00 Urine pH 7.0 (4.6 - 8.0) 07/08/17 16:00 Ur Specific [place] 1.020 (1.005-1.030) 07/08/17 16:00 Urine Protein NEGATIVE mg/dL (NEGATIVE) 07/08/17 16:00 Urine Glucose (UA) NEGATIVE mg/dL (NEGATIVE) 07/08/17 16:00 Urine Ketones NEGATIVE mg/dL (NEGATIVE) 07/08/17 16:00 Urine Blood NEGATIVE (NEGATIVE) 07/08/17 16:00 Urine Nitrate NEGATIVE (NEGATIVE) 07/08/17 16:00 Urine Bilirubin NEGATIVE (NEGATIVE) 07/08/17 16:00 Urine Urobilinogen 0.2 E.U./dL (0.2 - 1.0) 07/08/17 16:00 Ur Leukocyte Esterase NEGATIVE (NEGATIVE) 07/08/17 16:00 Urine RBC NONE SEEN /hpf (0-5) 07/08/17 16:00 Urine WBC NONE SEEN /hpf (0-5) 07/08/17 16:00 Ur Epithelial Cells NONE SEEN /lpf (FEW) 07/08/17 16:00 Urine Bacteria NONE SEEN /hpf (NONE SEEN) 07/08/17 16:00 Salicylates < 25.0 mg/L (30.0-100.0) L 07/08/17 16:44 Urine Opiates Screen NEGATIVE (NEGATIVE) 07/08/17 16:00 Urine Methadone Screen NEGATIVE (NEGATIVE) 07/08/17 16:00 Acetaminophen < 10.0 ug/mL (10.0-30.0) L 07/08/17 16:44 Ur Barbiturates Screen NEGATIVE (NEGATIVE) 07/08/17 16:00 Valproic Acid < 10.0 ug/mL (50.0-100.0) L 07/14/17 12:31 Ur Tricyclics Screen NEGATIVE (NEGATIVE) 07/08/17 16:00 Ur Phencyclidine Scrn NEGATIVE (NEGATIVE) 07/08/17 16:00 Amphetamines Screen NEGATIVE (NEGATIVE) 07/08/17 16:00 U Methamphetamines Scrn NEGATIVE (NEGATIVE) 07/08/17 16:00 U Benzodiazepines Scrn NEGATIVE (NEGATIVE) 07/08/17 16:00 U Cocaine Metab Screen NEGATIVE (NEGATIVE) 07/08/17 16:00 U Cannabinoids Screen POSITIVE (NEGATIVE) H 07/08/17 16:00 Ethyl Alcohol < 10 mg/dL (0-10) 07/08/17 16:44 RPR NONREACTIVE (NONREACTIVE) 07/08/17 16:44 - Physical Exam Vitals and I&O: Vital Signs Temp 97.2 F 07/27/17 05:55 Pulse 73 07/27/17 05:55 Resp 20 07/27/17 05:55 BP 117/72 07/27/17 05:55 Pulse Ox 96 07/27/17 05:55 Intake & Output 07/26/17 07/27/17 07/27/17 18:59 06:59 18:59 Intake Total 1200 240 Balance 1200 240 Intake: Oral 1200 240 Other: # Voids 4 1 # Bowel Movements 1 Active Medications: Current Medications Acetaminophen (Tylenol) 650 mg PO Q4HR PRN PRN Reason: Mild Pain / Temp above 100 Stop: 09/06/17 18:47 Al Hydrox/Mg Hydrox/Simethicone (Maalox) 30 ml PO Q4HR PRN PRN Reason: GI DISTRESS Stop: 09/06/17 18:47 Divalproex Sodium (Depakote Dr) 500 mg PO BID KATHIE PRN Reason: Protocol Stop: 09/12/17 16:59 Last Admin: 07/27/17 09:24 Dose: Not Given Loratadine (Claritin) 10 mg PO DAILY PRN PRN Reason: Allergy Symptoms Stop: 09/10/17 08:46 Lorazepam (Ativan) 0.5 mg PO Q4HR PRN; Protocol PRN Reason: Agitation Stop: 08/07/17 18:47 Last Admin: 07/10/17 08:05 Dose: 0.5 mg Magnesium Hydroxide (Milk Of Magnesia) 30 ml PO HS PRN PRN Reason: Constipation Multivitamins/Vitamin C (Theragran) 1 tab PO DAILY [facility] Stop: 09/07/17 08:59 Last Admin: 07/27/17 09:24 Dose: Not Given Risperidone (Risperdal) 6 mg PO DAILY [facility] Stop: 09/15/17 15:55 Last Admin: 07/27/17 09:24 Dose: Not Given Zolpidem Tartrate (Ambien) 5 mg PO HS PRN PRN Reason: Insomnia Stop: 09/06/17 18:47 Last Admin: 07/15/17 21:20 Dose: 5 mg General: Alert, No acute distress HEENT: Atraumatic, PERRLA Cardiovascular: Regular rate Lungs: Clear to auscultation Abdomen: Bowel sounds, Soft Extremities: Other (No edema) Neurological: Normal gait Skin: Other (Warm and dry) Psych/Mental Status: Other (Confused, not oriented) Assessment/Plan - Assessment Assessment: Patient is awake, alert, agitated at moments. DX: Psychosis, HTN. - Plan Plan: Patient is under Psychiatric care, continue with SNF meds. Will continue to monitor. Nutritional Asmnt/Malnutr-PDOC - Dietary Evaluation Malnutrition Findings (Please click <Entered> for more info): Nutritional Asmnt/Malnutrition Start: 07/15/17 16: 48 Text: Status: Complete Freq: Document 07/15/17 16:54 LCHENG (Rec: 07/15/17 16:57 LCHENG [email or web address]) Nutritional Asmnt/Malnutrition Patient General Information Nutritional Screening Low Risk Diagnosis Homicidal ideation, agitation Pertinent Medical Hx/Surgical Hx CAD, HTN, schizophrenia Subjective Information Per EMR, PO intake 100% of meals. Current Diet Order/ Nutrition Support regualr Pertinent Medications theragran Pertinent Labs 07/08 glucose 109, A1c 5.5, alb 4.0 Nutritional Hx/Data Height 1.68 m Height (Calculated Centimeters) 167.6 Current Weight (lbs) 68.039 kg Weight (Calculated Kilograms) 68.0 Weight (Calculated Grams) 71761.9 [place] Body Weight 142 Body Mass Index (BMI) 24.2 Weight Status Approriate GI Symptoms GI Symptoms None Last BM 07/14 Difficult in: None Skin Integrity/Comment: intact Current %PO Good (75-100%) Estimated Nutritional Goals BEE in Kcals: Using Current wt Calories/Kcals/Kg 25-30 Kcals Calculated 8652-7062 Protein: Using Current wt Protein g/k Protein Calculated 68 Fluid: ml 1700-2040ml (1ml/kcal) Nutritional Problem No current Nutrition Prob Problem N/A Malnutrition Alert Protein-Calorie Malnutrition N/A Is there a minimum of two criteria No selected? Query Text:Check all the applicable criteria. A minimum of two criteria are recommended for diagnosis of either severe or non-severe malnutrition. Intervention/Recommendation Comments 1. Continue with current diet as ordered. 2. Monitor PO intake, wt, labs and skin integrity 3. F/U as low risk in 7ddays, 07/22 Expected Outcomes/Goals Expected Outcomes/Goals 1. PO intake to meet at least 75% of nutritional needs. 2. Wt stability, skin to remain intact, labs to approach WNL.
--- NOTE | 2017-07-27 20:13 | Progress Notes ---
DATE: 07/27/2017 The patient remains homicidal, psychotic, disorganized, wanted to kill his [id number] with "peace and love," still grandiose, still refusing medications, states he does not want to take them, no real reason. The patient somewhat irritable, still disruptive. Staff concerned because of his ongoing homicidal ideations. ASSESSMENT: The patient remains symptomatic, delusional, homicidal. PLAN: The 14-day hold . There will need to be another [place] hearing on a 30-day hold. JOB# [id number]
--- NOTE | 2017-07-28 09:15 | General Progress Note ---
Subjective - Review of Systems Service Date: 07/28/17 Subjective: I am ok Objective - Results Result Diagrams: 07/08/17 16:44 07/08/17 16:44 Recent Labs: Laboratory Last Values WBC 7.1 Th/cmm (4.8-10.8) 07/08/17 16:44 RBC 4.67 Mil/cmm (4.30-5.70) 07/08/17 16:44 Hgb 14.2 gm/dL (12-16) 07/08/17 16:44 Hct 42.7 % (41.0-60) 07/08/17 16:44 MCV 91.4 fl (80-99) 07/08/17 16:44 MCH 30.4 pg (26.0-30.0) H 07/08/17 16:44 MCHC Differential 33.3 pg (28.0-36.0) 07/08/17 16:44 RDW 12.3 % (11.5-20.0) 07/08/17 16:44 Plt Count 288 Th/cmm (150-400) 07/08/17 16:44 MPV 7.0 fl 07/08/17 16:44 Neutrophils % 55.9 % (40.0-80.0) 07/08/17 16:44 Lymphocytes % 26.2 % (20.0-50.0) 07/08/17 16:44 Monocytes % 10.9 % (2.0-10.0) H 07/08/17 16:44 Eosinophils % 6.9 % (0.0-5.0) H 07/08/17 16:44 Basophils % 0.1 % (0.0-2.0) 07/08/17 16:44 Sodium 138 mEq/L (136-145) 07/08/17 16:44 Potassium 4.6 mEq/L (3.5-5.1) 07/08/17 16:44 Chloride 105 mEq/L (98-107) 07/08/17 16:44 Carbon Dioxide 29.3 mEq/L (21.0-31.0) 07/08/17 16:44 Anion Gap 8.3 (7.0-16.0) 07/08/17 16:44 BUN 17 mg/dL (7-25) 07/08/17 16:44 Creatinine 1.0 mg/dL (0.7-1.3) 07/08/17 16:44 Est GFR ( Amer) > 60.0 ml/min (>90) 07/08/17 16:44 Est GFR (Non-Af Amer) > 60.0 ml/min 07/08/17 16:44 BUN/Creatinine Ratio 17.0 07/08/17 16:44 Glucose 109 mg/dL (70-105) H 07/08/17 16:44 Hemoglobin A1c % 5.5 % (4.0-6.0) 07/08/17 16:44 Calcium 10.2 mg/dL (8.6-10.3) 07/08/17 16:44 Total Bilirubin 0.5 mg/dL (0.3-1.0) 07/08/17 16:44 AST 14 U/L (13-39) 07/08/17 16:44 ALT 14 U/L (7-52) 07/08/17 16:44 Alkaline Phosphatase 68 U/L (34-104) 07/08/17 16:44 Total Protein 6.9 gm/dL (6.0-8.3) 07/08/17 16:44 Albumin 4.0 gm/dL (4.2-5.5) L 07/08/17 16:44 Globulin 2.9 gm/dL 07/08/17 16:44 Albumin/Globulin Ratio 1.4 (1.0-1.8) 07/08/17 16:44 Triglycerides 86 mg/dL (<150) 07/08/17 16:44 Cholesterol 160 mg/dL (<200) 07/08/17 16:44 LDL Cholesterol Direct 100 mg/dL (75-193) 07/08/17 16:44 HDL Cholesterol 47 mg/dL (23-92) 07/08/17 16:44 TSH 0.44 uIU/ml (0.34-5.60) 07/08/17 16:44 Urine Source CLEAN C 07/08/17 16:00 Urine Color YELLOW 07/08/17 16:00 Urine Clarity CLEAR (CLEAR) 07/08/17 16:00 Urine pH 7.0 (4.6 - 8.0) 07/08/17 16:00 Ur Specific [place] 1.020 (1.005-1.030) 07/08/17 16:00 Urine Protein NEGATIVE mg/dL (NEGATIVE) 07/08/17 16:00 Urine Glucose (UA) NEGATIVE mg/dL (NEGATIVE) 07/08/17 16:00 Urine Ketones NEGATIVE mg/dL (NEGATIVE) 07/08/17 16:00 Urine Blood NEGATIVE (NEGATIVE) 07/08/17 16:00 Urine Nitrate NEGATIVE (NEGATIVE) 07/08/17 16:00 Urine Bilirubin NEGATIVE (NEGATIVE) 07/08/17 16:00 Urine Urobilinogen 0.2 E.U./dL (0.2 - 1.0) 07/08/17 16:00 Ur Leukocyte Esterase NEGATIVE (NEGATIVE) 07/08/17 16:00 Urine RBC NONE SEEN /hpf (0-5) 07/08/17 16:00 Urine WBC NONE SEEN /hpf (0-5) 07/08/17 16:00 Ur Epithelial Cells NONE SEEN /lpf (FEW) 07/08/17 16:00 Urine Bacteria NONE SEEN /hpf (NONE SEEN) 07/08/17 16:00 Salicylates < 25.0 mg/L (30.0-100.0) L 07/08/17 16:44 Urine Opiates Screen NEGATIVE (NEGATIVE) 07/08/17 16:00 Urine Methadone Screen NEGATIVE (NEGATIVE) 07/08/17 16:00 Acetaminophen < 10.0 ug/mL (10.0-30.0) L 07/08/17 16:44 Ur Barbiturates Screen NEGATIVE (NEGATIVE) 07/08/17 16:00 Valproic Acid < 10.0 ug/mL (50.0-100.0) L 07/14/17 12:31 Ur Tricyclics Screen NEGATIVE (NEGATIVE) 07/08/17 16:00 Ur Phencyclidine Scrn NEGATIVE (NEGATIVE) 07/08/17 16:00 Amphetamines Screen NEGATIVE (NEGATIVE) 07/08/17 16:00 U Methamphetamines Scrn NEGATIVE (NEGATIVE) 07/08/17 16:00 U Benzodiazepines Scrn NEGATIVE (NEGATIVE) 07/08/17 16:00 U Cocaine Metab Screen NEGATIVE (NEGATIVE) 07/08/17 16:00 U Cannabinoids Screen POSITIVE (NEGATIVE) H 07/08/17 16:00 Ethyl Alcohol < 10 mg/dL (0-10) 07/08/17 16:44 RPR NONREACTIVE (NONREACTIVE) 07/08/17 16:44 - Physical Exam Vitals and I&O: Vital Signs Temp 97.1 F 07/28/17 06:02 Pulse 73 07/28/17 06:02 Resp 20 07/28/17 06:02 BP 109/74 07/28/17 06:02 Pulse Ox 99 07/28/17 06:02 Intake & Output 07/27/17 07/28/17 07/28/17 18:59 06:59 18:59 Intake Total 1200 420 Balance 1200 420 Intake: Oral 1200 420 Other: # Voids 5 2 # Bowel Movements 2 1 Active Medications: Current Medications Acetaminophen (Tylenol) 650 mg PO Q4HR PRN PRN Reason: Mild Pain / Temp above 100 Stop: 09/06/17 18:47 Al Hydrox/Mg Hydrox/Simethicone (Maalox) 30 ml PO Q4HR PRN PRN Reason: GI DISTRESS Stop: 09/06/17 18:47 Divalproex Sodium (Depakote Dr) 500 mg PO BID KATHIE PRN Reason: Protocol Stop: 09/12/17 16:59 Last Admin: 07/27/17 17:30 Dose: Not Given Loratadine (Claritin) 10 mg PO DAILY PRN PRN Reason: Allergy Symptoms Stop: 09/10/17 08:46 Lorazepam (Ativan) 0.5 mg PO Q4HR PRN; Protocol PRN Reason: Agitation Stop: 08/07/17 18:47 Last Admin: 07/10/17 08:05 Dose: 0.5 mg Magnesium Hydroxide (Milk Of Magnesia) 30 ml PO HS PRN PRN Reason: Constipation Multivitamins/Vitamin C (Theragran) 1 tab PO DAILY [facility] Stop: 09/07/17 08:59 Last Admin: 07/27/17 09:24 Dose: Not Given Risperidone (Risperdal) 6 mg PO DAILY [facility] Stop: 09/15/17 15:55 Last Admin: 07/27/17 09:24 Dose: Not Given Zolpidem Tartrate (Ambien) 5 mg PO HS PRN PRN Reason: Insomnia Stop: 09/06/17 18:47 Last Admin: 07/15/17 21:20 Dose: 5 mg General: Alert, No acute distress HEENT: Atraumatic, PERRLA Cardiovascular: Regular rate Lungs: Clear to auscultation Abdomen: Bowel sounds, Soft Extremities: Other (No edema) Neurological: Normal gait Skin: Other (Warm and dry) Psych/Mental Status: Other (Confused, not oriented) Assessment/Plan - Assessment Assessment: Patient is awake, alert, agitated at moments. DX: Psychosis, HTN. - Plan Plan: Patient is under Psychiatric care, continue with SNF meds. Will continue to monitor. Nutritional Asmnt/Malnutr-PDOC - Dietary Evaluation Malnutrition Findings (Please click <Entered> for more info): Nutritional Asmnt/Malnutrition Start: 07/15/17 16: 48 Text: Status: Complete Freq: Document 07/15/17 16:54 LCHENG (Rec: 07/15/17 16:57 LCHENG [email or web address]) Nutritional Asmnt/Malnutrition Patient General Information Nutritional Screening Low Risk Diagnosis Homicidal ideation, agitation Pertinent Medical Hx/Surgical Hx CAD, HTN, schizophrenia Subjective Information Per EMR, PO intake 100% of meals. Current Diet Order/ Nutrition Support regualr Pertinent Medications theragran Pertinent Labs 07/08 glucose 109, A1c 5.5, alb 4.0 Nutritional Hx/Data Height 1.68 m Height (Calculated Centimeters) 167.6 Current Weight (lbs) 68.039 kg Weight (Calculated Kilograms) 68.0 Weight (Calculated Grams) 19902.9 [place] Body Weight 142 Body Mass Index (BMI) 24.2 Weight Status Approriate GI Symptoms GI Symptoms None Last BM 07/14 Difficult in: None Skin Integrity/Comment: intact Current %PO Good (75-100%) Estimated Nutritional Goals BEE in Kcals: Using Current wt Calories/Kcals/Kg 25-30 Kcals Calculated 2450-3005 Protein: Using Current wt Protein g/k Protein Calculated 68 Fluid: ml 1700-2040ml (1ml/kcal) Nutritional Problem No current Nutrition Prob Problem N/A Malnutrition Alert Protein-Calorie Malnutrition N/A Is there a minimum of two criteria No selected? Query Text:Check all the applicable criteria. A minimum of two criteria are recommended for diagnosis of either severe or non-severe malnutrition. Intervention/Recommendation Comments 1. Continue with current diet as ordered. 2. Monitor PO intake, wt, labs and skin integrity 3. F/U as low risk in 7ddays, 07/22 Expected Outcomes/Goals Expected Outcomes/Goals 1. PO intake to meet at least 75% of nutritional needs. 2. Wt stability, skin to remain intact, labs to approach WNL.
[2017-07-28] MEDS: risperiDONE 4 mg Tab PO SCH (09:38)
[2017-07-28] MEDS: Multivitamin Tab PO SCH (09:38)
--- NOTE | 2017-07-28 16:18 | Progress Notes ---
DATE: 07/28/2017 SUBJECTIVE: The patient remains homicidal, psychotic, disorganized, stating that he is the keep of the [place] arc, the [id number] wants to destroy the [place] and he alludes to the book of crisis after 11. The patient still homicidal. Unfortunately, I did the miss the [place] hearing today and needs to be rescheduled. He continues to refuse medications, 30-day hold was upheld. The patient is calm, cooperative, but delusional. ASSESSMENT AND PLAN: The patient remains delusional, homicidal, fixated on killing his [id number] with his finger and "peace and love." PLAN: We will reschedule the [place] hearing. Continue inpatient hospitalization and encourage med compliance. JOB# [id number]
[2017-07-29] MEDS: Multivitamin Tab PO SCH (08:19)
--- NOTE | 2017-07-29 08:19 | Progress Notes ---
DATE: The patient seen, chart reviewed, discussed with staff. The patient is calm, pleasant on exam, but still talking about a giant earthquake in [place] on September 18, talking about being the keeper of the [place], wanting to kill his [id number]. [place] hearing is to be rescheduled. He is refusing medications. Intermittent sleep, erratic sleep, does not want any sleep medications. He is eating well, not sleeping well, isolative, withdrawn. ASSESSMENT: The patient remains delusional, homicidal, fixated on killing his [id number]. PLAN: I am awaiting the court for the rescheduling of the [place] hearing. The patient to continue inpatient hospitalization. His delusions persist. His homicidal ideations and fantasies persist. JOB# [id number]
[2017-07-29] MEDS: risperiDONE 4 mg Tab PO SCH (08:20)
--- NOTE | 2017-07-29 09:07 | General Progress Note ---
Subjective - Review of Systems Service Date: 07/29/17 Subjective: I am ok Objective - Results Result Diagrams: 07/08/17 16:44 07/08/17 16:44 Recent Labs: Laboratory Last Values WBC 7.1 Th/cmm (4.8-10.8) 07/08/17 16:44 RBC 4.67 Mil/cmm (4.30-5.70) 07/08/17 16:44 Hgb 14.2 gm/dL (12-16) 07/08/17 16:44 Hct 42.7 % (41.0-60) 07/08/17 16:44 MCV 91.4 fl (80-99) 07/08/17 16:44 MCH 30.4 pg (26.0-30.0) H 07/08/17 16:44 MCHC Differential 33.3 pg (28.0-36.0) 07/08/17 16:44 RDW 12.3 % (11.5-20.0) 07/08/17 16:44 Plt Count 288 Th/cmm (150-400) 07/08/17 16:44 MPV 7.0 fl 07/08/17 16:44 Neutrophils % 55.9 % (40.0-80.0) 07/08/17 16:44 Lymphocytes % 26.2 % (20.0-50.0) 07/08/17 16:44 Monocytes % 10.9 % (2.0-10.0) H 07/08/17 16:44 Eosinophils % 6.9 % (0.0-5.0) H 07/08/17 16:44 Basophils % 0.1 % (0.0-2.0) 07/08/17 16:44 Sodium 138 mEq/L (136-145) 07/08/17 16:44 Potassium 4.6 mEq/L (3.5-5.1) 07/08/17 16:44 Chloride 105 mEq/L (98-107) 07/08/17 16:44 Carbon Dioxide 29.3 mEq/L (21.0-31.0) 07/08/17 16:44 Anion Gap 8.3 (7.0-16.0) 07/08/17 16:44 BUN 17 mg/dL (7-25) 07/08/17 16:44 Creatinine 1.0 mg/dL (0.7-1.3) 07/08/17 16:44 Est GFR ( Amer) > 60.0 ml/min (>90) 07/08/17 16:44 Est GFR (Non-Af Amer) > 60.0 ml/min 07/08/17 16:44 BUN/Creatinine Ratio 17.0 07/08/17 16:44 Glucose 109 mg/dL (70-105) H 07/08/17 16:44 Hemoglobin A1c % 5.5 % (4.0-6.0) 07/08/17 16:44 Calcium 10.2 mg/dL (8.6-10.3) 07/08/17 16:44 Total Bilirubin 0.5 mg/dL (0.3-1.0) 07/08/17 16:44 AST 14 U/L (13-39) 07/08/17 16:44 ALT 14 U/L (7-52) 07/08/17 16:44 Alkaline Phosphatase 68 U/L (34-104) 07/08/17 16:44 Total Protein 6.9 gm/dL (6.0-8.3) 07/08/17 16:44 Albumin 4.0 gm/dL (4.2-5.5) L 07/08/17 16:44 Globulin 2.9 gm/dL 07/08/17 16:44 Albumin/Globulin Ratio 1.4 (1.0-1.8) 07/08/17 16:44 Triglycerides 86 mg/dL (<150) 07/08/17 16:44 Cholesterol 160 mg/dL (<200) 07/08/17 16:44 LDL Cholesterol Direct 100 mg/dL (75-193) 07/08/17 16:44 HDL Cholesterol 47 mg/dL (23-92) 07/08/17 16:44 TSH 0.44 uIU/ml (0.34-5.60) 07/08/17 16:44 Urine Source CLEAN C 07/08/17 16:00 Urine Color YELLOW 07/08/17 16:00 Urine Clarity CLEAR (CLEAR) 07/08/17 16:00 Urine pH 7.0 (4.6 - 8.0) 07/08/17 16:00 Ur Specific [place] 1.020 (1.005-1.030) 07/08/17 16:00 Urine Protein NEGATIVE mg/dL (NEGATIVE) 07/08/17 16:00 Urine Glucose (UA) NEGATIVE mg/dL (NEGATIVE) 07/08/17 16:00 Urine Ketones NEGATIVE mg/dL (NEGATIVE) 07/08/17 16:00 Urine Blood NEGATIVE (NEGATIVE) 07/08/17 16:00 Urine Nitrate NEGATIVE (NEGATIVE) 07/08/17 16:00 Urine Bilirubin NEGATIVE (NEGATIVE) 07/08/17 16:00 Urine Urobilinogen 0.2 E.U./dL (0.2 - 1.0) 07/08/17 16:00 Ur Leukocyte Esterase NEGATIVE (NEGATIVE) 07/08/17 16:00 Urine RBC NONE SEEN /hpf (0-5) 07/08/17 16:00 Urine WBC NONE SEEN /hpf (0-5) 07/08/17 16:00 Ur Epithelial Cells NONE SEEN /lpf (FEW) 07/08/17 16:00 Urine Bacteria NONE SEEN /hpf (NONE SEEN) 07/08/17 16:00 Salicylates < 25.0 mg/L (30.0-100.0) L 07/08/17 16:44 Urine Opiates Screen NEGATIVE (NEGATIVE) 07/08/17 16:00 Urine Methadone Screen NEGATIVE (NEGATIVE) 07/08/17 16:00 Acetaminophen < 10.0 ug/mL (10.0-30.0) L 07/08/17 16:44 Ur Barbiturates Screen NEGATIVE (NEGATIVE) 07/08/17 16:00 Valproic Acid < 10.0 ug/mL (50.0-100.0) L 07/14/17 12:31 Ur Tricyclics Screen NEGATIVE (NEGATIVE) 07/08/17 16:00 Ur Phencyclidine Scrn NEGATIVE (NEGATIVE) 07/08/17 16:00 Amphetamines Screen NEGATIVE (NEGATIVE) 07/08/17 16:00 U Methamphetamines Scrn NEGATIVE (NEGATIVE) 07/08/17 16:00 U Benzodiazepines Scrn NEGATIVE (NEGATIVE) 07/08/17 16:00 U Cocaine Metab Screen NEGATIVE (NEGATIVE) 07/08/17 16:00 U Cannabinoids Screen POSITIVE (NEGATIVE) H 07/08/17 16:00 Ethyl Alcohol < 10 mg/dL (0-10) 07/08/17 16:44 RPR NONREACTIVE (NONREACTIVE) 07/08/17 16:44 - Physical Exam Vitals and I&O: Vital Signs Temp 97.3 F 07/29/17 06:26 Pulse 78 07/29/17 06:26 Resp 20 07/29/17 06:26 BP 115/66 07/29/17 06:26 Pulse Ox 100 07/29/17 06:26 Intake & Output 07/28/17 07/29/17 07/29/17 18:59 06:59 18:59 Intake Total 1800 120 Balance 1800 120 Intake: Oral 1800 120 Other: # Voids 4 3 # Bowel Movements 1 Active Medications: Current Medications Acetaminophen (Tylenol) 650 mg PO Q4HR PRN PRN Reason: Mild Pain / Temp above 100 Stop: 09/06/17 18:47 Al Hydrox/Mg Hydrox/Simethicone (Maalox) 30 ml PO Q4HR PRN PRN Reason: GI DISTRESS Stop: 09/06/17 18:47 Divalproex Sodium (Depakote Dr) 500 mg PO BID KATHIE PRN Reason: Protocol Stop: 09/12/17 16:59 Last Admin: 07/29/17 08:19 Dose: Not Given Loratadine (Claritin) 10 mg PO DAILY PRN PRN Reason: Allergy Symptoms Stop: 09/10/17 08:46 Lorazepam (Ativan) 0.5 mg PO Q4HR PRN; Protocol PRN Reason: Agitation Stop: 08/07/17 18:47 Last Admin: 07/10/17 08:05 Dose: 0.5 mg Magnesium Hydroxide (Milk Of Magnesia) 30 ml PO HS PRN PRN Reason: Constipation Multivitamins/Vitamin C (Theragran) 1 tab PO DAILY [facility] Stop: 09/07/17 08:59 Last Admin: 07/29/17 08:19 Dose: Not Given Risperidone (Risperdal) 6 mg PO DAILY [facility] Stop: 09/15/17 15:55 Last Admin: 07/29/17 08:20 Dose: Not Given Zolpidem Tartrate (Ambien) 5 mg PO HS PRN PRN Reason: Insomnia Stop: 09/06/17 18:47 Last Admin: 07/15/17 21:20 Dose: 5 mg General: Alert, No acute distress HEENT: Atraumatic, PERRLA Cardiovascular: Regular rate Lungs: Clear to auscultation Abdomen: Bowel sounds, Soft Extremities: Other (No edema) Neurological: Normal gait Skin: Other (Warm and dry) Psych/Mental Status: Other (Confused, not oriented) Assessment/Plan - Assessment Assessment: Patient is awake, alert, agitated at moments. DX: Psychosis, HTN. - Plan Plan: Patient is under Psychiatric care, continue with SNF meds. Will continue to monitor. Nutritional Asmnt/Malnutr-PDOC - Dietary Evaluation Malnutrition Findings (Please click <Entered> for more info): Nutritional Asmnt/Malnutrition Start: 07/15/17 16: 48 Text: Status: Complete Freq: Document 07/15/17 16:54 LCHENG (Rec: 07/15/17 16:57 LCHENG [email or web address]) Nutritional Asmnt/Malnutrition Patient General Information Nutritional Screening Low Risk Diagnosis Homicidal ideation, agitation Pertinent Medical Hx/Surgical Hx CAD, HTN, schizophrenia Subjective Information Per EMR, PO intake 100% of meals. Current Diet Order/ Nutrition Support regualr Pertinent Medications theragran Pertinent Labs 07/08 glucose 109, A1c 5.5, alb 4.0 Nutritional Hx/Data Height 1.68 m Height (Calculated Centimeters) 167.6 Current Weight (lbs) 68.039 kg Weight (Calculated Kilograms) 68.0 Weight (Calculated Grams) 79626.9 [place] Body Weight 142 Body Mass Index (BMI) 24.2 Weight Status Approriate GI Symptoms GI Symptoms None Last BM 07/14 Difficult in: None Skin Integrity/Comment: intact Current %PO Good (75-100%) Estimated Nutritional Goals BEE in Kcals: Using Current wt Calories/Kcals/Kg 25-30 Kcals Calculated 6437-0072 Protein: Using Current wt Protein g/k Protein Calculated 68 Fluid: ml 1700-2040ml (1ml/kcal) Nutritional Problem No current Nutrition Prob Problem N/A Malnutrition Alert Protein-Calorie Malnutrition N/A Is there a minimum of two criteria No selected? Query Text:Check all the applicable criteria. A minimum of two criteria are recommended for diagnosis of either severe or non-severe malnutrition. Intervention/Recommendation Comments 1. Continue with current diet as ordered. 2. Monitor PO intake, wt, labs and skin integrity 3. F/U as low risk in 7ddays, 07/22 Expected Outcomes/Goals Expected Outcomes/Goals 1. PO intake to meet at least 75% of nutritional needs. 2. Wt stability, skin to remain intact, labs to approach WNL.
[2017-07-30] MEDS: Multivitamin Tab PO SCH (08:03)
[2017-07-30] MEDS: risperiDONE 4 mg Tab PO SCH (08:03)
--- NOTE | 2017-07-30 09:46 | General Progress Note ---
Subjective - Review of Systems Service Date: 07/30/17 Subjective: I am ok Objective - Results Result Diagrams: 07/08/17 16:44 07/08/17 16:44 Recent Labs: Laboratory Last Values WBC 7.1 Th/cmm (4.8-10.8) 07/08/17 16:44 RBC 4.67 Mil/cmm (4.30-5.70) 07/08/17 16:44 Hgb 14.2 gm/dL (12-16) 07/08/17 16:44 Hct 42.7 % (41.0-60) 07/08/17 16:44 MCV 91.4 fl (80-99) 07/08/17 16:44 MCH 30.4 pg (26.0-30.0) H 07/08/17 16:44 MCHC Differential 33.3 pg (28.0-36.0) 07/08/17 16:44 RDW 12.3 % (11.5-20.0) 07/08/17 16:44 Plt Count 288 Th/cmm (150-400) 07/08/17 16:44 MPV 7.0 fl 07/08/17 16:44 Neutrophils % 55.9 % (40.0-80.0) 07/08/17 16:44 Lymphocytes % 26.2 % (20.0-50.0) 07/08/17 16:44 Monocytes % 10.9 % (2.0-10.0) H 07/08/17 16:44 Eosinophils % 6.9 % (0.0-5.0) H 07/08/17 16:44 Basophils % 0.1 % (0.0-2.0) 07/08/17 16:44 Sodium 138 mEq/L (136-145) 07/08/17 16:44 Potassium 4.6 mEq/L (3.5-5.1) 07/08/17 16:44 Chloride 105 mEq/L (98-107) 07/08/17 16:44 Carbon Dioxide 29.3 mEq/L (21.0-31.0) 07/08/17 16:44 Anion Gap 8.3 (7.0-16.0) 07/08/17 16:44 BUN 17 mg/dL (7-25) 07/08/17 16:44 Creatinine 1.0 mg/dL (0.7-1.3) 07/08/17 16:44 Est GFR ( Amer) > 60.0 ml/min (>90) 07/08/17 16:44 Est GFR (Non-Af Amer) > 60.0 ml/min 07/08/17 16:44 BUN/Creatinine Ratio 17.0 07/08/17 16:44 Glucose 109 mg/dL (70-105) H 07/08/17 16:44 Hemoglobin A1c % 5.5 % (4.0-6.0) 07/08/17 16:44 Calcium 10.2 mg/dL (8.6-10.3) 07/08/17 16:44 Total Bilirubin 0.5 mg/dL (0.3-1.0) 07/08/17 16:44 AST 14 U/L (13-39) 07/08/17 16:44 ALT 14 U/L (7-52) 07/08/17 16:44 Alkaline Phosphatase 68 U/L (34-104) 07/08/17 16:44 Total Protein 6.9 gm/dL (6.0-8.3) 07/08/17 16:44 Albumin 4.0 gm/dL (4.2-5.5) L 07/08/17 16:44 Globulin 2.9 gm/dL 07/08/17 16:44 Albumin/Globulin Ratio 1.4 (1.0-1.8) 07/08/17 16:44 Triglycerides 86 mg/dL (<150) 07/08/17 16:44 Cholesterol 160 mg/dL (<200) 07/08/17 16:44 LDL Cholesterol Direct 100 mg/dL (75-193) 07/08/17 16:44 HDL Cholesterol 47 mg/dL (23-92) 07/08/17 16:44 TSH 0.44 uIU/ml (0.34-5.60) 07/08/17 16:44 Urine Source CLEAN C 07/08/17 16:00 Urine Color YELLOW 07/08/17 16:00 Urine Clarity CLEAR (CLEAR) 07/08/17 16:00 Urine pH 7.0 (4.6 - 8.0) 07/08/17 16:00 Ur Specific [place] 1.020 (1.005-1.030) 07/08/17 16:00 Urine Protein NEGATIVE mg/dL (NEGATIVE) 07/08/17 16:00 Urine Glucose (UA) NEGATIVE mg/dL (NEGATIVE) 07/08/17 16:00 Urine Ketones NEGATIVE mg/dL (NEGATIVE) 07/08/17 16:00 Urine Blood NEGATIVE (NEGATIVE) 07/08/17 16:00 Urine Nitrate NEGATIVE (NEGATIVE) 07/08/17 16:00 Urine Bilirubin NEGATIVE (NEGATIVE) 07/08/17 16:00 Urine Urobilinogen 0.2 E.U./dL (0.2 - 1.0) 07/08/17 16:00 Ur Leukocyte Esterase NEGATIVE (NEGATIVE) 07/08/17 16:00 Urine RBC NONE SEEN /hpf (0-5) 07/08/17 16:00 Urine WBC NONE SEEN /hpf (0-5) 07/08/17 16:00 Ur Epithelial Cells NONE SEEN /lpf (FEW) 07/08/17 16:00 Urine Bacteria NONE SEEN /hpf (NONE SEEN) 07/08/17 16:00 Salicylates < 25.0 mg/L (30.0-100.0) L 07/08/17 16:44 Urine Opiates Screen NEGATIVE (NEGATIVE) 07/08/17 16:00 Urine Methadone Screen NEGATIVE (NEGATIVE) 07/08/17 16:00 Acetaminophen < 10.0 ug/mL (10.0-30.0) L 07/08/17 16:44 Ur Barbiturates Screen NEGATIVE (NEGATIVE) 07/08/17 16:00 Valproic Acid < 10.0 ug/mL (50.0-100.0) L 07/14/17 12:31 Ur Tricyclics Screen NEGATIVE (NEGATIVE) 07/08/17 16:00 Ur Phencyclidine Scrn NEGATIVE (NEGATIVE) 07/08/17 16:00 Amphetamines Screen NEGATIVE (NEGATIVE) 07/08/17 16:00 U Methamphetamines Scrn NEGATIVE (NEGATIVE) 07/08/17 16:00 U Benzodiazepines Scrn NEGATIVE (NEGATIVE) 07/08/17 16:00 U Cocaine Metab Screen NEGATIVE (NEGATIVE) 07/08/17 16:00 U Cannabinoids Screen POSITIVE (NEGATIVE) H 07/08/17 16:00 Ethyl Alcohol < 10 mg/dL (0-10) 07/08/17 16:44 RPR NONREACTIVE (NONREACTIVE) 07/08/17 16:44 - Physical Exam Vitals and I&O: Vital Signs Temp 97.6 F 07/30/17 06:25 Pulse 82 07/30/17 06:25 Resp 20 07/30/17 06:25 BP 110/64 07/30/17 06:25 Pulse Ox 99 07/30/17 06:25 Intake & Output 07/29/17 07/30/17 07/30/17 18:59 06:59 18:59 Intake Total 1000 120 Balance 1000 120 Intake: Oral 1000 120 Other: # Voids 4 3 # Bowel Movements 1 Active Medications: Current Medications Acetaminophen (Tylenol) 650 mg PO Q4HR PRN PRN Reason: Mild Pain / Temp above 100 Stop: 09/06/17 18:47 Al Hydrox/Mg Hydrox/Simethicone (Maalox) 30 ml PO Q4HR PRN PRN Reason: GI DISTRESS Stop: 09/06/17 18:47 Divalproex Sodium (Depakote Dr) 500 mg PO BID KATHIE PRN Reason: Protocol Stop: 09/12/17 16:59 Last Admin: 07/30/17 08:03 Dose: Not Given Loratadine (Claritin) 10 mg PO DAILY PRN PRN Reason: Allergy Symptoms Stop: 09/10/17 08:46 Lorazepam (Ativan) 0.5 mg PO Q4HR PRN; Protocol PRN Reason: Agitation Stop: 08/07/17 18:47 Last Admin: 07/10/17 08:05 Dose: 0.5 mg Magnesium Hydroxide (Milk Of Magnesia) 30 ml PO HS PRN PRN Reason: Constipation Multivitamins/Vitamin C (Theragran) 1 tab PO DAILY [facility] Stop: 09/07/17 08:59 Last Admin: 07/30/17 08:03 Dose: Not Given Risperidone (Risperdal) 6 mg PO DAILY [facility] Stop: 09/15/17 15:55 Last Admin: 07/30/17 08:03 Dose: Not Given Zolpidem Tartrate (Ambien) 5 mg PO HS PRN PRN Reason: Insomnia Stop: 09/06/17 18:47 Last Admin: 07/15/17 21:20 Dose: 5 mg General: Alert, No acute distress HEENT: Atraumatic, PERRLA Cardiovascular: Regular rate Lungs: Clear to auscultation Abdomen: Bowel sounds, Soft Extremities: Other (No edema) Neurological: Normal gait Skin: Other (Warm and dry) Psych/Mental Status: Other (Confused, not oriented) Assessment/Plan - Assessment Assessment: Patient is awake, alert, agitated at moments. DX: Psychosis, HTN. - Plan Plan: Patient is under Psychiatric care, continue with SNF meds. Will continue to monitor. Nutritional Asmnt/Malnutr-PDOC - Dietary Evaluation Malnutrition Findings (Please click <Entered> for more info): Nutritional Asmnt/Malnutrition Start: 07/15/17 16: 48 Text: Status: Complete Freq: Document 07/15/17 16:54 LCHENG (Rec: 07/15/17 16:57 LCHENG [email or web address]) Nutritional Asmnt/Malnutrition Patient General Information Nutritional Screening Low Risk Diagnosis Homicidal ideation, agitation Pertinent Medical Hx/Surgical Hx CAD, HTN, schizophrenia Subjective Information Per EMR, PO intake 100% of meals. Current Diet Order/ Nutrition Support regualr Pertinent Medications theragran Pertinent Labs 07/08 glucose 109, A1c 5.5, alb 4.0 Nutritional Hx/Data Height 1.68 m Height (Calculated Centimeters) 167.6 Current Weight (lbs) 68.039 kg Weight (Calculated Kilograms) 68.0 Weight (Calculated Grams) 16183.9 [place] Body Weight 142 Body Mass Index (BMI) 24.2 Weight Status Approriate GI Symptoms GI Symptoms None Last BM 07/14 Difficult in: None Skin Integrity/Comment: intact Current %PO Good (75-100%) Estimated Nutritional Goals BEE in Kcals: Using Current wt Calories/Kcals/Kg 25-30 Kcals Calculated 6593-9023 Protein: Using Current wt Protein g/k Protein Calculated 68 Fluid: ml 1700-2040ml (1ml/kcal) Nutritional Problem No current Nutrition Prob Problem N/A Malnutrition Alert Protein-Calorie Malnutrition N/A Is there a minimum of two criteria No selected? Query Text:Check all the applicable criteria. A minimum of two criteria are recommended for diagnosis of either severe or non-severe malnutrition. Intervention/Recommendation Comments 1. Continue with current diet as ordered. 2. Monitor PO intake, wt, labs and skin integrity 3. F/U as low risk in 7ddays, 07/22 Expected Outcomes/Goals Expected Outcomes/Goals 1. PO intake to meet at least 75% of nutritional needs. 2. Wt stability, skin to remain intact, labs to approach WNL.
--- NOTE | 2017-07-30 18:35 | Progress Notes ---
DATE: 07/30/2017 The patient was seen and evaluated. The patient's chart reviewed. Today on [id number] evaluation, the patient continues to perseverate that he is going to kill the [id number] because he is to keep her ____. [employer] is trying to ____ by the patient's cousin. MENTAL STATUS EXAMINATION: Disorganized, delusional, believing that he is to keep her of [employer], delusional, derailed, psychotic and disorganized with homicidal ideations fixated. ASSESSMENT AND PLAN: The patient is a 57-year-old male, psychotic, disorganized with extremely poor sleep, manic and grandiose and psychotic, talking about an earthquake is going to happen in [place] on 09/18, that he is the keeper of [employer] that is trying to be ____ by his cousin. Therefore, he is fixated in killing his cousin.. Due to the patient continues psychotic, delusional behavior and noncompliance of medications, initiated another [facility] petition today to target the patient's psychotic behaviors with medications as he has been noncompliant. JOB# [id number]
[2017-07-31] MEDS: risperiDONE 4 mg Tab PO SCH (08:09)
[2017-07-31] MEDS: Multivitamin Tab PO SCH (08:09)
--- NOTE | 2017-07-31 08:48 | General Progress Note ---
Subjective - Review of Systems Service Date: 07/31/17 Subjective: I am ok Objective - Results Result Diagrams: 07/08/17 16:44 07/08/17 16:44 Recent Labs: Laboratory Last Values WBC 7.1 Th/cmm (4.8-10.8) 07/08/17 16:44 RBC 4.67 Mil/cmm (4.30-5.70) 07/08/17 16:44 Hgb 14.2 gm/dL (12-16) 07/08/17 16:44 Hct 42.7 % (41.0-60) 07/08/17 16:44 MCV 91.4 fl (80-99) 07/08/17 16:44 MCH 30.4 pg (26.0-30.0) H 07/08/17 16:44 MCHC Differential 33.3 pg (28.0-36.0) 07/08/17 16:44 RDW 12.3 % (11.5-20.0) 07/08/17 16:44 Plt Count 288 Th/cmm (150-400) 07/08/17 16:44 MPV 7.0 fl 07/08/17 16:44 Neutrophils % 55.9 % (40.0-80.0) 07/08/17 16:44 Lymphocytes % 26.2 % (20.0-50.0) 07/08/17 16:44 Monocytes % 10.9 % (2.0-10.0) H 07/08/17 16:44 Eosinophils % 6.9 % (0.0-5.0) H 07/08/17 16:44 Basophils % 0.1 % (0.0-2.0) 07/08/17 16:44 Sodium 138 mEq/L (136-145) 07/08/17 16:44 Potassium 4.6 mEq/L (3.5-5.1) 07/08/17 16:44 Chloride 105 mEq/L (98-107) 07/08/17 16:44 Carbon Dioxide 29.3 mEq/L (21.0-31.0) 07/08/17 16:44 Anion Gap 8.3 (7.0-16.0) 07/08/17 16:44 BUN 17 mg/dL (7-25) 07/08/17 16:44 Creatinine 1.0 mg/dL (0.7-1.3) 07/08/17 16:44 Est GFR ( Amer) > 60.0 ml/min (>90) 07/08/17 16:44 Est GFR (Non-Af Amer) > 60.0 ml/min 07/08/17 16:44 BUN/Creatinine Ratio 17.0 07/08/17 16:44 Glucose 109 mg/dL (70-105) H 07/08/17 16:44 Hemoglobin A1c % 5.5 % (4.0-6.0) 07/08/17 16:44 Calcium 10.2 mg/dL (8.6-10.3) 07/08/17 16:44 Total Bilirubin 0.5 mg/dL (0.3-1.0) 07/08/17 16:44 AST 14 U/L (13-39) 07/08/17 16:44 ALT 14 U/L (7-52) 07/08/17 16:44 Alkaline Phosphatase 68 U/L (34-104) 07/08/17 16:44 Total Protein 6.9 gm/dL (6.0-8.3) 07/08/17 16:44 Albumin 4.0 gm/dL (4.2-5.5) L 07/08/17 16:44 Globulin 2.9 gm/dL 07/08/17 16:44 Albumin/Globulin Ratio 1.4 (1.0-1.8) 07/08/17 16:44 Triglycerides 86 mg/dL (<150) 07/08/17 16:44 Cholesterol 160 mg/dL (<200) 07/08/17 16:44 LDL Cholesterol Direct 100 mg/dL (75-193) 07/08/17 16:44 HDL Cholesterol 47 mg/dL (23-92) 07/08/17 16:44 TSH 0.44 uIU/ml (0.34-5.60) 07/08/17 16:44 Urine Source CLEAN C 07/08/17 16:00 Urine Color YELLOW 07/08/17 16:00 Urine Clarity CLEAR (CLEAR) 07/08/17 16:00 Urine pH 7.0 (4.6 - 8.0) 07/08/17 16:00 Ur Specific [place] 1.020 (1.005-1.030) 07/08/17 16:00 Urine Protein NEGATIVE mg/dL (NEGATIVE) 07/08/17 16:00 Urine Glucose (UA) NEGATIVE mg/dL (NEGATIVE) 07/08/17 16:00 Urine Ketones NEGATIVE mg/dL (NEGATIVE) 07/08/17 16:00 Urine Blood NEGATIVE (NEGATIVE) 07/08/17 16:00 Urine Nitrate NEGATIVE (NEGATIVE) 07/08/17 16:00 Urine Bilirubin NEGATIVE (NEGATIVE) 07/08/17 16:00 Urine Urobilinogen 0.2 E.U./dL (0.2 - 1.0) 07/08/17 16:00 Ur Leukocyte Esterase NEGATIVE (NEGATIVE) 07/08/17 16:00 Urine RBC NONE SEEN /hpf (0-5) 07/08/17 16:00 Urine WBC NONE SEEN /hpf (0-5) 07/08/17 16:00 Ur Epithelial Cells NONE SEEN /lpf (FEW) 07/08/17 16:00 Urine Bacteria NONE SEEN /hpf (NONE SEEN) 07/08/17 16:00 Salicylates < 25.0 mg/L (30.0-100.0) L 07/08/17 16:44 Urine Opiates Screen NEGATIVE (NEGATIVE) 07/08/17 16:00 Urine Methadone Screen NEGATIVE (NEGATIVE) 07/08/17 16:00 Acetaminophen < 10.0 ug/mL (10.0-30.0) L 07/08/17 16:44 Ur Barbiturates Screen NEGATIVE (NEGATIVE) 07/08/17 16:00 Valproic Acid < 10.0 ug/mL (50.0-100.0) L 07/14/17 12:31 Ur Tricyclics Screen NEGATIVE (NEGATIVE) 07/08/17 16:00 Ur Phencyclidine Scrn NEGATIVE (NEGATIVE) 07/08/17 16:00 Amphetamines Screen NEGATIVE (NEGATIVE) 07/08/17 16:00 U Methamphetamines Scrn NEGATIVE (NEGATIVE) 07/08/17 16:00 U Benzodiazepines Scrn NEGATIVE (NEGATIVE) 07/08/17 16:00 U Cocaine Metab Screen NEGATIVE (NEGATIVE) 07/08/17 16:00 U Cannabinoids Screen POSITIVE (NEGATIVE) H 07/08/17 16:00 Ethyl Alcohol < 10 mg/dL (0-10) 07/08/17 16:44 RPR NONREACTIVE (NONREACTIVE) 07/08/17 16:44 - Physical Exam Vitals and I&O: Vital Signs Temp 98.2 F 07/30/17 20:00 Pulse 69 07/30/17 20:00 Resp 18 07/30/17 20:00 BP 107/67 07/30/17 20:00 Pulse Ox 100 07/30/17 20:00 Intake & Output 07/30/17 07/31/17 07/31/17 18:59 06:59 18:59 Intake Total 160 Balance 160 Intake: Oral 160 Other: # Voids 2 Active Medications: Current Medications Acetaminophen (Tylenol) 650 mg PO Q4HR PRN PRN Reason: Mild Pain / Temp above 100 Stop: 09/06/17 18:47 Al Hydrox/Mg Hydrox/Simethicone (Maalox) 30 ml PO Q4HR PRN PRN Reason: GI DISTRESS Stop: 09/06/17 18:47 Divalproex Sodium (Depakote Dr) 500 mg PO BID KATHIE PRN Reason: Protocol Stop: 09/12/17 16:59 Last Admin: 07/31/17 08:09 Dose: Not Given Loratadine (Claritin) 10 mg PO DAILY PRN PRN Reason: Allergy Symptoms Stop: 09/10/17 08:46 Magnesium Hydroxide (Milk Of Magnesia) 30 ml PO HS PRN PRN Reason: Constipation Multivitamins/Vitamin C (Theragran) 1 tab PO DAILY [facility] Stop: 09/07/17 08:59 Last Admin: 07/31/17 08:09 Dose: Not Given Risperidone (Risperdal) 6 mg PO DAILY [facility] Stop: 09/15/17 15:55 Last Admin: 07/31/17 08:09 Dose: Not Given General: Alert, No acute distress HEENT: Atraumatic, PERRLA Cardiovascular: Regular rate Lungs: Clear to auscultation Abdomen: Bowel sounds, Soft Extremities: Other (No edema) Neurological: Normal gait Skin: Other (Warm and dry) Psych/Mental Status: Other (Confused, not oriented) Assessment/Plan - Assessment Assessment: Patient is awake, alert, agitated at moments. DX: Psychosis, HTN. - Plan Plan: Patient is under Psychiatric care, continue with SNF meds. Will continue to monitor. Nutritional Asmnt/Malnutr-PDOC - Dietary Evaluation Malnutrition Findings (Please click <Entered> for more info): Nutritional Asmnt/Malnutrition Start: 07/15/17 16: 48 Text: Status: Complete Freq: Document 07/15/17 16:54 [email or web address] (Rec: 07/15/17 16:57 [email or web address] [id number]) Nutritional Asmnt/Malnutrition Patient General Information Nutritional Screening Low Risk Diagnosis Homicidal ideation, agitation Pertinent Medical Hx/Surgical Hx CAD, HTN, schizophrenia Subjective Information Per EMR, PO intake 100% of meals. Current Diet Order/ Nutrition Support regualr Pertinent Medications theragran Pertinent Labs 07/08 glucose 109, A1c 5.5, alb 4.0 Nutritional Hx/Data Height 1.68 m Height (Calculated Centimeters) 167.6 Current Weight (lbs) 68.039 kg Weight (Calculated Kilograms) 68.0 Weight (Calculated Grams) 81264.9 [place] Body Weight 142 Body Mass Index (BMI) 24.2 Weight Status Approriate GI Symptoms GI Symptoms None Last BM 07/14 Difficult in: None Skin Integrity/Comment: intact Current %PO Good (75-100%) Estimated Nutritional Goals BEE in Kcals: Using Current wt Calories/Kcals/Kg 25-30 Kcals Calculated 5646-4871 Protein: Using Current wt Protein g/k Protein Calculated 68 Fluid: ml 1700-2040ml (1ml/kcal) Nutritional Problem No current Nutrition Prob Problem N/A Malnutrition Alert Protein-Calorie Malnutrition N/A Is there a minimum of two criteria No selected? Query Text:Check all the applicable criteria. A minimum of two criteria are recommended for diagnosis of either severe or non-severe malnutrition. Intervention/Recommendation Comments 1. Continue with current diet as ordered. 2. Monitor PO intake, wt, labs and skin integrity 3. F/U as low risk in 7ddays, 07/22 Expected Outcomes/Goals Expected Outcomes/Goals 1. PO intake to meet at least 75% of nutritional needs. 2. Wt stability, skin to remain intact, labs to approach WNL.
--- NOTE | 2017-08-01 03:41 | Progress Notes ---
DATE: 07/31/2017 Yesterday, his application to the [employer] was not scheduled until Thursday08/03/2017. Today on [id number] evaluation, the patient continues to report that he is the keeper of the [place]oven[place] from [place] and the patient is very psychotic, disorganized, his cousin is trying to break the Covenant. MENTAL STATUS EXAMINATION: Disorganized, delusional, believing that he is the keeper of the [place] of [place], delusional, derails easily and endorsing homicidal ideations towards his cousin. ASSESSMENT AND PLAN: A -ymjc-ntn male psychotic, disorganized, extremely poor sleep, refusing medications. We will continue awaiting the [employer], it is not scheduled until August 03 although the application was submitted multiple times and pending scheduling from the court. Due to the patient's active psychotic behaviors and fixated on his cousin who is going to break "The [place] of [place]," continues to be extremely high risk. JOB# [id number]
[2017-08-01] MEDS: Multivitamin Tab PO SCH (09:26)
[2017-08-01] MEDS: risperiDONE 4 mg Tab PO SCH (09:26)
--- NOTE | 2017-08-01 09:27 | General Progress Note ---
Subjective - Review of Systems Service Date: 08/01/17 Subjective: I am ok Objective - Results Result Diagrams: 07/08/17 16:44 07/08/17 16:44 Recent Labs: Laboratory Last Values WBC 7.1 Th/cmm (4.8-10.8) 07/08/17 16:44 RBC 4.67 Mil/cmm (4.30-5.70) 07/08/17 16:44 Hgb 14.2 gm/dL (12-16) 07/08/17 16:44 Hct 42.7 % (41.0-60) 07/08/17 16:44 MCV 91.4 fl (80-99) 07/08/17 16:44 MCH 30.4 pg (26.0-30.0) H 07/08/17 16:44 MCHC Differential 33.3 pg (28.0-36.0) 07/08/17 16:44 RDW 12.3 % (11.5-20.0) 07/08/17 16:44 Plt Count 288 Th/cmm (150-400) 07/08/17 16:44 MPV 7.0 fl 07/08/17 16:44 Neutrophils % 55.9 % (40.0-80.0) 07/08/17 16:44 Lymphocytes % 26.2 % (20.0-50.0) 07/08/17 16:44 Monocytes % 10.9 % (2.0-10.0) H 07/08/17 16:44 Eosinophils % 6.9 % (0.0-5.0) H 07/08/17 16:44 Basophils % 0.1 % (0.0-2.0) 07/08/17 16:44 Sodium 138 mEq/L (136-145) 07/08/17 16:44 Potassium 4.6 mEq/L (3.5-5.1) 07/08/17 16:44 Chloride 105 mEq/L (98-107) 07/08/17 16:44 Carbon Dioxide 29.3 mEq/L (21.0-31.0) 07/08/17 16:44 Anion Gap 8.3 (7.0-16.0) 07/08/17 16:44 BUN 17 mg/dL (7-25) 07/08/17 16:44 Creatinine 1.0 mg/dL (0.7-1.3) 07/08/17 16:44 Est GFR ( Amer) > 60.0 ml/min (>90) 07/08/17 16:44 Est GFR (Non-Af Amer) > 60.0 ml/min 07/08/17 16:44 BUN/Creatinine Ratio 17.0 07/08/17 16:44 Glucose 109 mg/dL (70-105) H 07/08/17 16:44 Hemoglobin A1c % 5.5 % (4.0-6.0) 07/08/17 16:44 Calcium 10.2 mg/dL (8.6-10.3) 07/08/17 16:44 Total Bilirubin 0.5 mg/dL (0.3-1.0) 07/08/17 16:44 AST 14 U/L (13-39) 07/08/17 16:44 ALT 14 U/L (7-52) 07/08/17 16:44 Alkaline Phosphatase 68 U/L (34-104) 07/08/17 16:44 Total Protein 6.9 gm/dL (6.0-8.3) 07/08/17 16:44 Albumin 4.0 gm/dL (4.2-5.5) L 07/08/17 16:44 Globulin 2.9 gm/dL 07/08/17 16:44 Albumin/Globulin Ratio 1.4 (1.0-1.8) 07/08/17 16:44 Triglycerides 86 mg/dL (<150) 07/08/17 16:44 Cholesterol 160 mg/dL (<200) 07/08/17 16:44 LDL Cholesterol Direct 100 mg/dL (75-193) 07/08/17 16:44 HDL Cholesterol 47 mg/dL (23-92) 07/08/17 16:44 TSH 0.44 uIU/ml (0.34-5.60) 07/08/17 16:44 Urine Source CLEAN C 07/08/17 16:00 Urine Color YELLOW 07/08/17 16:00 Urine Clarity CLEAR (CLEAR) 07/08/17 16:00 Urine pH 7.0 (4.6 - 8.0) 07/08/17 16:00 Ur Specific [place] 1.020 (1.005-1.030) 07/08/17 16:00 Urine Protein NEGATIVE mg/dL (NEGATIVE) 07/08/17 16:00 Urine Glucose (UA) NEGATIVE mg/dL (NEGATIVE) 07/08/17 16:00 Urine Ketones NEGATIVE mg/dL (NEGATIVE) 07/08/17 16:00 Urine Blood NEGATIVE (NEGATIVE) 07/08/17 16:00 Urine Nitrate NEGATIVE (NEGATIVE) 07/08/17 16:00 Urine Bilirubin NEGATIVE (NEGATIVE) 07/08/17 16:00 Urine Urobilinogen 0.2 E.U./dL (0.2 - 1.0) 07/08/17 16:00 Ur Leukocyte Esterase NEGATIVE (NEGATIVE) 07/08/17 16:00 Urine RBC NONE SEEN /hpf (0-5) 07/08/17 16:00 Urine WBC NONE SEEN /hpf (0-5) 07/08/17 16:00 Ur Epithelial Cells NONE SEEN /lpf (FEW) 07/08/17 16:00 Urine Bacteria NONE SEEN /hpf (NONE SEEN) 07/08/17 16:00 Salicylates < 25.0 mg/L (30.0-100.0) L 07/08/17 16:44 Urine Opiates Screen NEGATIVE (NEGATIVE) 07/08/17 16:00 Urine Methadone Screen NEGATIVE (NEGATIVE) 07/08/17 16:00 Acetaminophen < 10.0 ug/mL (10.0-30.0) L 07/08/17 16:44 Ur Barbiturates Screen NEGATIVE (NEGATIVE) 07/08/17 16:00 Valproic Acid < 10.0 ug/mL (50.0-100.0) L 07/14/17 12:31 Ur Tricyclics Screen NEGATIVE (NEGATIVE) 07/08/17 16:00 Ur Phencyclidine Scrn NEGATIVE (NEGATIVE) 07/08/17 16:00 Amphetamines Screen NEGATIVE (NEGATIVE) 07/08/17 16:00 U Methamphetamines Scrn NEGATIVE (NEGATIVE) 07/08/17 16:00 U Benzodiazepines Scrn NEGATIVE (NEGATIVE) 07/08/17 16:00 U Cocaine Metab Screen NEGATIVE (NEGATIVE) 07/08/17 16:00 U Cannabinoids Screen POSITIVE (NEGATIVE) H 07/08/17 16:00 Ethyl Alcohol < 10 mg/dL (0-10) 07/08/17 16:44 RPR NONREACTIVE (NONREACTIVE) 07/08/17 16:44 - Physical Exam Vitals and I&O: Vital Signs Temp 98 F 07/31/17 20:13 Pulse 84 07/31/17 20:13 Resp 20 07/31/17 20:13 BP 109/66 07/31/17 20:13 Pulse Ox 98 07/31/17 20:13 Intake & Output 07/31/17 08/01/17 08/01/17 18:59 06:59 18:59 Intake Total 1200 480 Balance 1200 480 Intake: Oral 1200 480 Other: # Voids 4 2 # Bowel Movements 1 Active Medications: Current Medications Acetaminophen (Tylenol) 650 mg PO Q4HR PRN PRN Reason: Mild Pain / Temp above 100 Stop: 09/06/17 18:47 Al Hydrox/Mg Hydrox/Simethicone (Maalox) 30 ml PO Q4HR PRN PRN Reason: GI DISTRESS Stop: 09/06/17 18:47 Divalproex Sodium (Depakote Dr) 500 mg PO BID KATHIE PRN Reason: Protocol Stop: 09/12/17 16:59 Last Admin: 08/01/17 09:25 Dose: Not Given Loratadine (Claritin) 10 mg PO DAILY PRN PRN Reason: Allergy Symptoms Stop: 09/10/17 08:46 Last Admin: 07/31/17 21:45 Dose: 10 mg Magnesium Hydroxide (Milk Of Magnesia) 30 ml PO HS PRN PRN Reason: Constipation Multivitamins/Vitamin C (Theragran) 1 tab PO DAILY [facility] Stop: 09/07/17 08:59 Last Admin: 08/01/17 09:26 Dose: Not Given Risperidone (Risperdal) 6 mg PO DAILY [facility] Stop: 09/15/17 15:55 Last Admin: 08/01/17 09:26 Dose: Not Given Zolpidem Tartrate (Ambien) 5 mg PO HS PRN PRN Reason: Insomnia Stop: 09/29/17 22:50 Last Admin: 08/01/17 00:39 Dose: 5 mg General: Alert, No acute distress HEENT: Atraumatic, PERRLA Cardiovascular: Regular rate Lungs: Clear to auscultation Abdomen: Bowel sounds, Soft Extremities: Other (No edema) Neurological: Normal gait Skin: Other (Warm and dry) Psych/Mental Status: Other (Confused, not oriented) Assessment/Plan - Assessment Assessment: Patient is awake, alert, agitated at moments. DX: Psychosis, HTN. - Plan Plan: Patient is under Psychiatric care, continue with SNF meds. Will continue to monitor. Nutritional Asmnt/Malnutr-PDOC - Dietary Evaluation Malnutrition Findings (Please click <Entered> for more info): Nutritional Asmnt/Malnutrition Start: 07/15/17 16: 48 Text: Status: Complete Freq: Document 07/15/17 16:54 [email or web address] (Rec: 07/15/17 16:57 LCHENG [email or web address]) Nutritional Asmnt/Malnutrition Patient General Information Nutritional Screening Low Risk Diagnosis Homicidal ideation, agitation Pertinent Medical Hx/Surgical Hx CAD, HTN, schizophrenia Subjective Information Per EMR, PO intake 100% of meals. Current Diet Order/ Nutrition Support regualr Pertinent Medications theragran Pertinent Labs 07/08 glucose 109, A1c 5.5, alb 4.0 Nutritional Hx/Data Height 1.68 m Height (Calculated Centimeters) 167.6 Current Weight (lbs) 68.039 kg Weight (Calculated Kilograms) 68.0 Weight (Calculated Grams) 46397.9 [place] Body Weight 142 Body Mass Index (BMI) 24.2 Weight Status Approriate GI Symptoms GI Symptoms None Last BM 07/14 Difficult in: None Skin Integrity/Comment: intact Current %PO Good (75-100%) Estimated Nutritional Goals BEE in Kcals: Using Current wt Calories/Kcals/Kg 25-30 Kcals Calculated 3458-5379 Protein: Using Current wt Protein g/k Protein Calculated 68 Fluid: ml 1700-2040ml (1ml/kcal) Nutritional Problem No current Nutrition Prob Problem N/A Malnutrition Alert Protein-Calorie Malnutrition N/A Is there a minimum of two criteria No selected? Query Text:Check all the applicable criteria. A minimum of two criteria are recommended for diagnosis of either severe or non-severe malnutrition. Intervention/Recommendation Comments 1. Continue with current diet as ordered. 2. Monitor PO intake, wt, labs and skin integrity 3. F/U as low risk in 7ddays, 07/22 Expected Outcomes/Goals Expected Outcomes/Goals 1. PO intake to meet at least 75% of nutritional needs. 2. Wt stability, skin to remain intact, labs to approach WNL.
--- NOTE | 2017-08-01 18:07 | Progress Notes ---
DATE: SUBJECTIVE: The patient was seen and evaluated. The patient's chart was reviewed. Overnight nursing staff, the patient continues to be paranoid and delusional. Today on [id number] evaluation, the patient continues to report he does not have medication, continues to perseverate on the covenant of the [place]k and his cousin trying to break the ark and therefore presents to be homicidal. MENTAL STATUS EXAMINATION: Paranoid, delusional, grandiose. ASSESSMENT AND PLAN: The patient is a 57-year-old male, who presents still psychotic, disorganized and refusing medications. Pending Shannan on Thursday at 10 a.m. JOB# [id number]
[2017-08-02] MEDS: risperiDONE 4 mg Tab PO SCH (08:34)
[2017-08-02] MEDS: Multivitamin Tab PO SCH (08:34)
--- NOTE | 2017-08-02 10:20 | Progress Notes ---
DATE: 08/02/2017 Today on [id number] evaluation, the patient continues to perseverate on the [place], that his cousin has been violating and therefore having homicidal thoughts against his cousin. MENTAL STATUS EXAMINATION: Paranoid, delusion with homicidal fantasies. ASSESSMENT AND PLAN: The patient is a 57-year-old male who presented psychotic, disorganized, believing that his cousin is violating the [place] resulting in homicidal fantasies with the pending Riese tomorrow to evaluate and further treat the patient as he has been refusing medications. [facility]# [id number]
--- NOTE | 2017-08-02 11:41 | General Progress Note ---
Subjective - Review of Systems Service Date: 08/02/17 Subjective: I am ok Objective - Results Result Diagrams: 07/08/17 16:44 07/08/17 16:44 Recent Labs: Laboratory Last Values WBC 7.1 Th/cmm (4.8-10.8) 07/08/17 16:44 RBC 4.67 Mil/cmm (4.30-5.70) 07/08/17 16:44 Hgb 14.2 gm/dL (12-16) 07/08/17 16:44 Hct 42.7 % (41.0-60) 07/08/17 16:44 MCV 91.4 fl (80-99) 07/08/17 16:44 MCH 30.4 pg (26.0-30.0) H 07/08/17 16:44 MCHC Differential 33.3 pg (28.0-36.0) 07/08/17 16:44 RDW 12.3 % (11.5-20.0) 07/08/17 16:44 Plt Count 288 Th/cmm (150-400) 07/08/17 16:44 MPV 7.0 fl 07/08/17 16:44 Neutrophils % 55.9 % (40.0-80.0) 07/08/17 16:44 Lymphocytes % 26.2 % (20.0-50.0) 07/08/17 16:44 Monocytes % 10.9 % (2.0-10.0) H 07/08/17 16:44 Eosinophils % 6.9 % (0.0-5.0) H 07/08/17 16:44 Basophils % 0.1 % (0.0-2.0) 07/08/17 16:44 Sodium 138 mEq/L (136-145) 07/08/17 16:44 Potassium 4.6 mEq/L (3.5-5.1) 07/08/17 16:44 Chloride 105 mEq/L (98-107) 07/08/17 16:44 Carbon Dioxide 29.3 mEq/L (21.0-31.0) 07/08/17 16:44 Anion Gap 8.3 (7.0-16.0) 07/08/17 16:44 BUN 17 mg/dL (7-25) 07/08/17 16:44 Creatinine 1.0 mg/dL (0.7-1.3) 07/08/17 16:44 Est GFR ( Amer) > 60.0 ml/min (>90) 07/08/17 16:44 Est GFR (Non-Af Amer) > 60.0 ml/min 07/08/17 16:44 BUN/Creatinine Ratio 17.0 07/08/17 16:44 Glucose 109 mg/dL (70-105) H 07/08/17 16:44 Hemoglobin A1c % 5.5 % (4.0-6.0) 07/08/17 16:44 Calcium 10.2 mg/dL (8.6-10.3) 07/08/17 16:44 Total Bilirubin 0.5 mg/dL (0.3-1.0) 07/08/17 16:44 AST 14 U/L (13-39) 07/08/17 16:44 ALT 14 U/L (7-52) 07/08/17 16:44 Alkaline Phosphatase 68 U/L (34-104) 07/08/17 16:44 Total Protein 6.9 gm/dL (6.0-8.3) 07/08/17 16:44 Albumin 4.0 gm/dL (4.2-5.5) L 07/08/17 16:44 Globulin 2.9 gm/dL 07/08/17 16:44 Albumin/Globulin Ratio 1.4 (1.0-1.8) 07/08/17 16:44 Triglycerides 86 mg/dL (<150) 07/08/17 16:44 Cholesterol 160 mg/dL (<200) 07/08/17 16:44 LDL Cholesterol Direct 100 mg/dL (75-193) 07/08/17 16:44 HDL Cholesterol 47 mg/dL (23-92) 07/08/17 16:44 TSH 0.44 uIU/ml (0.34-5.60) 07/08/17 16:44 Urine Source CLEAN C 07/08/17 16:00 Urine Color YELLOW 07/08/17 16:00 Urine Clarity CLEAR (CLEAR) 07/08/17 16:00 Urine pH 7.0 (4.6 - 8.0) 07/08/17 16:00 Ur Specific [place] 1.020 (1.005-1.030) 07/08/17 16:00 Urine Protein NEGATIVE mg/dL (NEGATIVE) 07/08/17 16:00 Urine Glucose (UA) NEGATIVE mg/dL (NEGATIVE) 07/08/17 16:00 Urine Ketones NEGATIVE mg/dL (NEGATIVE) 07/08/17 16:00 Urine Blood NEGATIVE (NEGATIVE) 07/08/17 16:00 Urine Nitrate NEGATIVE (NEGATIVE) 07/08/17 16:00 Urine Bilirubin NEGATIVE (NEGATIVE) 07/08/17 16:00 Urine Urobilinogen 0.2 E.U./dL (0.2 - 1.0) 07/08/17 16:00 Ur Leukocyte Esterase NEGATIVE (NEGATIVE) 07/08/17 16:00 Urine RBC NONE SEEN /hpf (0-5) 07/08/17 16:00 Urine WBC NONE SEEN /hpf (0-5) 07/08/17 16:00 Ur Epithelial Cells NONE SEEN /lpf (FEW) 07/08/17 16:00 Urine Bacteria NONE SEEN /hpf (NONE SEEN) 07/08/17 16:00 Salicylates < 25.0 mg/L (30.0-100.0) L 07/08/17 16:44 Urine Opiates Screen NEGATIVE (NEGATIVE) 07/08/17 16:00 Urine Methadone Screen NEGATIVE (NEGATIVE) 07/08/17 16:00 Acetaminophen < 10.0 ug/mL (10.0-30.0) L 07/08/17 16:44 Ur Barbiturates Screen NEGATIVE (NEGATIVE) 07/08/17 16:00 Valproic Acid < 10.0 ug/mL (50.0-100.0) L 07/14/17 12:31 Ur Tricyclics Screen NEGATIVE (NEGATIVE) 07/08/17 16:00 Ur Phencyclidine Scrn NEGATIVE (NEGATIVE) 07/08/17 16:00 Amphetamines Screen NEGATIVE (NEGATIVE) 07/08/17 16:00 U Methamphetamines Scrn NEGATIVE (NEGATIVE) 07/08/17 16:00 U Benzodiazepines Scrn NEGATIVE (NEGATIVE) 07/08/17 16:00 U Cocaine Metab Screen NEGATIVE (NEGATIVE) 07/08/17 16:00 U Cannabinoids Screen POSITIVE (NEGATIVE) H 07/08/17 16:00 Ethyl Alcohol < 10 mg/dL (0-10) 07/08/17 16:44 RPR NONREACTIVE (NONREACTIVE) 07/08/17 16:44 - Physical Exam Vitals and I&O: Vital Signs Temp 98.2 F 08/02/17 06:29 Pulse 69 08/02/17 06:29 Resp 18 08/02/17 06:29 BP 109/63 08/02/17 06:29 Pulse Ox 97 08/02/17 06:29 Intake & Output 08/01/17 08/02/17 08/02/17 18:59 06:59 18:59 Intake Total 1800 120 Balance 1800 120 Intake: Oral 1800 120 Other: # Voids 4 3 # Bowel Movements 1 Active Medications: Current Medications Acetaminophen (Tylenol) 650 mg PO Q4HR PRN PRN Reason: Mild Pain / Temp above 100 Stop: 09/06/17 18:47 Last Admin: 08/02/17 08:43 Dose: 650 mg Al Hydrox/Mg Hydrox/Simethicone (Maalox) 30 ml PO Q4HR PRN PRN Reason: GI DISTRESS Stop: 09/06/17 18:47 Divalproex Sodium (Depakote Dr) 500 mg PO BID KATHIE PRN Reason: Protocol Stop: 09/12/17 16:59 Last Admin: 08/02/17 08:34 Dose: Not Given Loratadine (Claritin) 10 mg PO DAILY PRN PRN Reason: Allergy Symptoms Stop: 09/10/17 08:46 Last Admin: 07/31/17 21:45 Dose: 10 mg Magnesium Hydroxide (Milk Of Magnesia) 30 ml PO HS PRN PRN Reason: Constipation Multivitamins/Vitamin C (Theragran) 1 tab PO DAILY [facility] Stop: 09/07/17 08:59 Last Admin: 08/02/17 08:34 Dose: Not Given Risperidone (Risperdal) 6 mg PO DAILY [facility] Stop: 09/15/17 15:55 Last Admin: 08/02/17 08:34 Dose: Not Given Zolpidem Tartrate (Ambien) 5 mg PO HS PRN PRN Reason: Insomnia Stop: 09/29/17 22:50 Last Admin: 08/01/17 22:34 Dose: 5 mg General: Alert, No acute distress HEENT: Atraumatic, PERRLA Cardiovascular: Regular rate Lungs: Clear to auscultation Abdomen: Bowel sounds, Soft Extremities: Other (No edema) Neurological: Normal gait Skin: Other (Warm and dry) Psych/Mental Status: Other (Confused, not oriented) Assessment/Plan - Assessment Assessment: Patient is awake, alert, agitated at moments. DX: Psychosis, HTN. - Plan Plan: Patient is under Psychiatric care, continue with SNF meds. Will continue to monitor. Nutritional Asmnt/Malnutr-PDOC - Dietary Evaluation Malnutrition Findings (Please click <Entered> for more info): Nutritional Asmnt/Malnutrition Start: 07/15/17 16: 48 Text: Status: Complete Freq: Document 07/15/17 16:54 HEN (Rec: 07/15/17 16:57 [email or web address] Nutritional Asmnt/Malnutrition Patient General Information Nutritional Screening Low Risk Diagnosis Homicidal ideation, agitation Pertinent Medical Hx/Surgical Hx CAD, HTN, schizophrenia Subjective Information Per EMR, PO intake 100% of meals. Current Diet Order/ Nutrition Support regualr Pertinent Medications theragran Pertinent Labs 07/08 glucose 109, A1c 5.5, alb 4.0 Nutritional Hx/Data Height 1.68 m Height (Calculated Centimeters) 167.6 Current Weight (lbs) 68.039 kg Weight (Calculated Kilograms) 68.0 Weight (Calculated Grams) 84301.9 [place] Body Weight 142 Body Mass Index (BMI) 24.2 Weight Status Approriate GI Symptoms GI Symptoms None Last BM 07/14 Difficult in: None Skin Integrity/Comment: intact Current %PO Good (75-100%) Estimated Nutritional Goals BEE in Kcals: Using Current wt Calories/Kcals/Kg 25-30 Kcals Calculated 7712-8127 Protein: Using Current wt Protein g/k Protein Calculated 68 Fluid: ml 1700-2040ml (1ml/kcal) Nutritional Problem No current Nutrition Prob Problem N/A Malnutrition Alert Protein-Calorie Malnutrition N/A Is there a minimum of two criteria No selected? Query Text:Check all the applicable criteria. A minimum of two criteria are recommended for diagnosis of either severe or non-severe malnutrition. Intervention/Recommendation Comments 1. Continue with current diet as ordered. 2. Monitor PO intake, wt, labs and skin integrity 3. F/U as low risk in 7ddays, 07/22 Expected Outcomes/Goals Expected Outcomes/Goals 1. PO intake to meet at least 75% of nutritional needs. 2. Wt stability, skin to remain intact, labs to approach WNL.
--- NOTE | 2017-08-03 08:41 | General Progress Note ---
Subjective - Review of Systems Service Date: 08/03/17 Subjective: I am fine Objective - Results Result Diagrams: 07/08/17 16:44 07/08/17 16:44 Recent Labs: Laboratory Last Values WBC 7.1 Th/cmm (4.8-10.8) 07/08/17 16:44 RBC 4.67 Mil/cmm (4.30-5.70) 07/08/17 16:44 Hgb 14.2 gm/dL (12-16) 07/08/17 16:44 Hct 42.7 % (41.0-60) 07/08/17 16:44 MCV 91.4 fl (80-99) 07/08/17 16:44 MCH 30.4 pg (26.0-30.0) H 07/08/17 16:44 MCHC Differential 33.3 pg (28.0-36.0) 07/08/17 16:44 RDW 12.3 % (11.5-20.0) 07/08/17 16:44 Plt Count 288 Th/cmm (150-400) 07/08/17 16:44 MPV 7.0 fl 07/08/17 16:44 Neutrophils % 55.9 % (40.0-80.0) 07/08/17 16:44 Lymphocytes % 26.2 % (20.0-50.0) 07/08/17 16:44 Monocytes % 10.9 % (2.0-10.0) H 07/08/17 16:44 Eosinophils % 6.9 % (0.0-5.0) H 07/08/17 16:44 Basophils % 0.1 % (0.0-2.0) 07/08/17 16:44 Sodium 138 mEq/L (136-145) 07/08/17 16:44 Potassium 4.6 mEq/L (3.5-5.1) 07/08/17 16:44 Chloride 105 mEq/L (98-107) 07/08/17 16:44 Carbon Dioxide 29.3 mEq/L (21.0-31.0) 07/08/17 16:44 Anion Gap 8.3 (7.0-16.0) 07/08/17 16:44 BUN 17 mg/dL (7-25) 07/08/17 16:44 Creatinine 1.0 mg/dL (0.7-1.3) 07/08/17 16:44 Est GFR ( Amer) > 60.0 ml/min (>90) 07/08/17 16:44 Est GFR (Non-Af Amer) > 60.0 ml/min 07/08/17 16:44 BUN/Creatinine Ratio 17.0 07/08/17 16:44 Glucose 109 mg/dL (70-105) H 07/08/17 16:44 Hemoglobin A1c % 5.5 % (4.0-6.0) 07/08/17 16:44 Calcium 10.2 mg/dL (8.6-10.3) 07/08/17 16:44 Total Bilirubin 0.5 mg/dL (0.3-1.0) 07/08/17 16:44 AST 14 U/L (13-39) 07/08/17 16:44 ALT 14 U/L (7-52) 07/08/17 16:44 Alkaline Phosphatase 68 U/L (34-104) 07/08/17 16:44 Total Protein 6.9 gm/dL (6.0-8.3) 07/08/17 16:44 Albumin 4.0 gm/dL (4.2-5.5) L 07/08/17 16:44 Globulin 2.9 gm/dL 07/08/17 16:44 Albumin/Globulin Ratio 1.4 (1.0-1.8) 07/08/17 16:44 Triglycerides 86 mg/dL (<150) 07/08/17 16:44 Cholesterol 160 mg/dL (<200) 07/08/17 16:44 LDL Cholesterol Direct 100 mg/dL (75-193) 07/08/17 16:44 HDL Cholesterol 47 mg/dL (23-92) 07/08/17 16:44 TSH 0.44 uIU/ml (0.34-5.60) 07/08/17 16:44 Urine Source CLEAN C 07/08/17 16:00 Urine Color YELLOW 07/08/17 16:00 Urine Clarity CLEAR (CLEAR) 07/08/17 16:00 Urine pH 7.0 (4.6 - 8.0) 07/08/17 16:00 Ur Specific [place] 1.020 (1.005-1.030) 07/08/17 16:00 Urine Protein NEGATIVE mg/dL (NEGATIVE) 07/08/17 16:00 Urine Glucose (UA) NEGATIVE mg/dL (NEGATIVE) 07/08/17 16:00 Urine Ketones NEGATIVE mg/dL (NEGATIVE) 07/08/17 16:00 Urine Blood NEGATIVE (NEGATIVE) 07/08/17 16:00 Urine Nitrate NEGATIVE (NEGATIVE) 07/08/17 16:00 Urine Bilirubin NEGATIVE (NEGATIVE) 07/08/17 16:00 Urine Urobilinogen 0.2 E.U./dL (0.2 - 1.0) 07/08/17 16:00 Ur Leukocyte Esterase NEGATIVE (NEGATIVE) 07/08/17 16:00 Urine RBC NONE SEEN /hpf (0-5) 07/08/17 16:00 Urine WBC NONE SEEN /hpf (0-5) 07/08/17 16:00 Ur Epithelial Cells NONE SEEN /lpf (FEW) 07/08/17 16:00 Urine Bacteria NONE SEEN /hpf (NONE SEEN) 07/08/17 16:00 Salicylates < 25.0 mg/L (30.0-100.0) L 07/08/17 16:44 Urine Opiates Screen NEGATIVE (NEGATIVE) 07/08/17 16:00 Urine Methadone Screen NEGATIVE (NEGATIVE) 07/08/17 16:00 Acetaminophen < 10.0 ug/mL (10.0-30.0) L 07/08/17 16:44 Ur Barbiturates Screen NEGATIVE (NEGATIVE) 07/08/17 16:00 Valproic Acid < 10.0 ug/mL (50.0-100.0) L 07/14/17 12:31 Ur Tricyclics Screen NEGATIVE (NEGATIVE) 07/08/17 16:00 Ur Phencyclidine Scrn NEGATIVE (NEGATIVE) 07/08/17 16:00 Amphetamines Screen NEGATIVE (NEGATIVE) 07/08/17 16:00 U Methamphetamines Scrn NEGATIVE (NEGATIVE) 07/08/17 16:00 U Benzodiazepines Scrn NEGATIVE (NEGATIVE) 07/08/17 16:00 U Cocaine Metab Screen NEGATIVE (NEGATIVE) 07/08/17 16:00 U Cannabinoids Screen POSITIVE (NEGATIVE) H 07/08/17 16:00 Ethyl Alcohol < 10 mg/dL (0-10) 07/08/17 16:44 RPR NONREACTIVE (NONREACTIVE) 07/08/17 16:44 - Physical Exam Vitals and I&O: Vital Signs Temp 96.9 F 08/03/17 06:17 Pulse 70 08/03/17 06:17 Resp 20 08/03/17 06:17 BP 116/78 08/03/17 06:17 Pulse Ox 100 08/03/17 06:17 Intake & Output 08/02/17 08/03/17 08/03/17 18:59 06:59 18:59 Intake Total 1600 120 Balance 1600 120 Intake: Oral 1600 120 Other: # Voids 4 3 # Bowel Movements 1 0 Active Medications: Current Medications Acetaminophen (Tylenol) 650 mg PO Q4HR PRN PRN Reason: Mild Pain / Temp above 100 Stop: 09/06/17 18:47 Last Admin: 08/02/17 21:56 Dose: 650 mg Al Hydrox/Mg Hydrox/Simethicone (Maalox) 30 ml PO Q4HR PRN PRN Reason: GI DISTRESS Stop: 09/06/17 18:47 Amoxicillin (Amoxil) 500 mg PO TID [facility] Stop: 10/01/17 13:59 Last Admin: 08/02/17 20:57 Dose: 500 mg Divalproex Sodium (Depakote Dr) 500 mg PO BID KATHIE PRN Reason: Protocol Stop: 09/12/17 16:59 Last Admin: 08/02/17 16:23 Dose: Not Given Loratadine (Claritin) 10 mg PO DAILY PRN PRN Reason: Allergy Symptoms Stop: 09/10/17 08:46 Last Admin: 07/31/17 21:45 Dose: 10 mg Magnesium Hydroxide (Milk Of Magnesia) 30 ml PO HS PRN PRN Reason: Constipation Multivitamins/Vitamin C (Theragran) 1 tab PO DAILY [facility] Stop: 09/07/17 08:59 Last Admin: 08/02/17 08:34 Dose: Not Given Risperidone (Risperdal) 6 mg PO DAILY [facility] Stop: 09/15/17 15:55 Last Admin: 08/02/17 08:34 Dose: Not Given Zolpidem Tartrate (Ambien) 5 mg PO HS PRN PRN Reason: Insomnia Stop: 09/29/17 22:50 Last Admin: 08/01/17 22:34 Dose: 5 mg General: Alert, No acute distress HEENT: Atraumatic, PERRLA Cardiovascular: Regular rate Lungs: Clear to auscultation Abdomen: Bowel sounds, Soft Extremities: Other (No edema) Neurological: Normal gait Skin: Other (Warm and dry) Psych/Mental Status: Other (Confused, not oriented) Assessment/Plan - Assessment Assessment: Patient is awake, alert, calm, in no acute distress. DX: Psychosis, HTN. - Plan Plan: Patient is under Psychiatric care, continue with SNF meds. Will continue to monitor. Nutritional Asmnt/Malnutr-PDOC - Dietary Evaluation Malnutrition Findings (Please click <Entered> for more info): Nutritional Asmnt/Malnutrition Start: 07/15/17 16: 48 Text: Status: Complete Freq: Document 07/15/17 16:54 LCHENG (Rec: 07/15/17 16:57 [id number]) Nutritional Asmnt/Malnutrition Patient General Information Nutritional Screening Low Risk Diagnosis Homicidal ideation, agitation Pertinent Medical Hx/Surgical Hx CAD, HTN, schizophrenia Subjective Information Per EMR, PO intake 100% of meals. Current Diet Order/ Nutrition Support regualr Pertinent Medications theragran Pertinent Labs 07/08 glucose 109, A1c 5.5, alb 4.0 Nutritional Hx/Data Height 1.68 m Height (Calculated Centimeters) 167.6 Current Weight (lbs) 68.039 kg Weight (Calculated Kilograms) 68.0 Weight (Calculated Grams) 99266.9 [place] Body Weight 142 Body Mass Index (BMI) 24.2 Weight Status Approriate GI Symptoms GI Symptoms None Last BM 07/14 Difficult in: None Skin Integrity/Comment: intact Current %PO Good (75-100%) Estimated Nutritional Goals BEE in Kcals: Using Current wt Calories/Kcals/Kg 25-30 Kcals Calculated 1411-4557 Protein: Using Current wt Protein g/k Protein Calculated 68 Fluid: ml 1700-2040ml (1ml/kcal) Nutritional Problem No current Nutrition Prob Problem N/A Malnutrition Alert Protein-Calorie Malnutrition N/A Is there a minimum of two criteria No selected? Query Text:Check all the applicable criteria. A minimum of two criteria are recommended for diagnosis of either severe or non-severe malnutrition. Intervention/Recommendation Comments 1. Continue with current diet as ordered. 2. Monitor PO intake, wt, labs and skin integrity 3. F/U as low risk in 7ddays, 3/28 Expected Outcomes/Goals Expected Outcomes/Goals 1. PO intake to meet at least 75% of nutritional needs. 2. Wt stability, skin to remain intact, labs to approach WNL.
[2017-08-03] MEDS ORDERED: Haloperidol Lactate 5 mg/mL 1mL Vial IM PRN (10:25)
--- NOTE | 2017-08-03 12:04 | Progress Notes ---
DATE: 08/03/2017 The patient talking about the [place] [employer] [place], homicidal, wants to kill his [id number], Shannan hearing today. He told the elementary spanish teacher, he plans to kill the [id number], it is up to the court to save the lives of others. He is hearing voices. The voice of God talking to him, commanding him, directing him, no changes really in his symptoms. ASSESSMENT: The patient is paranoid, delusional, still homicidal, highly psychotic. PLAN: Shannan hearing was upheld. Riese upheld. We will initiate Haldol with Haldol IM backup. JOB# [id number]
[2017-08-03] MEDS: Multivitamin Tab PO SCH (19:03)
--- NOTE | 2017-08-04 08:34 | General Progress Note ---
Subjective - Review of Systems Service Date: 08/04/17 Subjective: I am fine Objective - Results Result Diagrams: 07/08/17 16:44 07/08/17 16:44 Recent Labs: Laboratory Last Values WBC 7.1 Th/cmm (4.8-10.8) 07/08/17 16:44 RBC 4.67 Mil/cmm (4.30-5.70) 07/08/17 16:44 Hgb 14.2 gm/dL (12-16) 07/08/17 16:44 Hct 42.7 % (41.0-60) 07/08/17 16:44 MCV 91.4 fl (80-99) 07/08/17 16:44 MCH 30.4 pg (26.0-30.0) H 07/08/17 16:44 MCHC Differential 33.3 pg (28.0-36.0) 07/08/17 16:44 RDW 12.3 % (11.5-20.0) 07/08/17 16:44 Plt Count 288 Th/cmm (150-400) 07/08/17 16:44 MPV 7.0 fl 07/08/17 16:44 Neutrophils % 55.9 % (40.0-80.0) 07/08/17 16:44 Lymphocytes % 26.2 % (20.0-50.0) 07/08/17 16:44 Monocytes % 10.9 % (2.0-10.0) H 07/08/17 16:44 Eosinophils % 6.9 % (0.0-5.0) H 07/08/17 16:44 Basophils % 0.1 % (0.0-2.0) 07/08/17 16:44 Sodium 138 mEq/L (136-145) 07/08/17 16:44 Potassium 4.6 mEq/L (3.5-5.1) 07/08/17 16:44 Chloride 105 mEq/L (98-107) 07/08/17 16:44 Carbon Dioxide 29.3 mEq/L (21.0-31.0) 07/08/17 16:44 Anion Gap 8.3 (7.0-16.0) 07/08/17 16:44 BUN 17 mg/dL (7-25) 07/08/17 16:44 Creatinine 1.0 mg/dL (0.7-1.3) 07/08/17 16:44 Est GFR ( Amer) > 60.0 ml/min (>90) 07/08/17 16:44 Est GFR (Non-Af Amer) > 60.0 ml/min 07/08/17 16:44 BUN/Creatinine Ratio 17.0 07/08/17 16:44 Glucose 109 mg/dL (70-105) H 07/08/17 16:44 Hemoglobin A1c % 5.5 % (4.0-6.0) 07/08/17 16:44 Calcium 10.2 mg/dL (8.6-10.3) 07/08/17 16:44 Total Bilirubin 0.5 mg/dL (0.3-1.0) 07/08/17 16:44 AST 14 U/L (13-39) 07/08/17 16:44 ALT 14 U/L (7-52) 07/08/17 16:44 Alkaline Phosphatase 68 U/L (34-104) 07/08/17 16:44 Total Protein 6.9 gm/dL (6.0-8.3) 07/08/17 16:44 Albumin 4.0 gm/dL (4.2-5.5) L 07/08/17 16:44 Globulin 2.9 gm/dL 07/08/17 16:44 Albumin/Globulin Ratio 1.4 (1.0-1.8) 07/08/17 16:44 Triglycerides 86 mg/dL (<150) 07/08/17 16:44 Cholesterol 160 mg/dL (<200) 07/08/17 16:44 LDL Cholesterol Direct 100 mg/dL (75-193) 07/08/17 16:44 HDL Cholesterol 47 mg/dL (23-92) 07/08/17 16:44 TSH 0.44 uIU/ml (0.34-5.60) 07/08/17 16:44 Urine Source CLEAN C 07/08/17 16:00 Urine Color YELLOW 07/08/17 16:00 Urine Clarity CLEAR (CLEAR) 07/08/17 16:00 Urine pH 7.0 (4.6 - 8.0) 07/08/17 16:00 Ur Specific [place] 1.020 (1.005-1.030) 07/08/17 16:00 Urine Protein NEGATIVE mg/dL (NEGATIVE) 07/08/17 16:00 Urine Glucose (UA) NEGATIVE mg/dL (NEGATIVE) 07/08/17 16:00 Urine Ketones NEGATIVE mg/dL (NEGATIVE) 07/08/17 16:00 Urine Blood NEGATIVE (NEGATIVE) 07/08/17 16:00 Urine Nitrate NEGATIVE (NEGATIVE) 07/08/17 16:00 Urine Bilirubin NEGATIVE (NEGATIVE) 07/08/17 16:00 Urine Urobilinogen 0.2 E.U./dL (0.2 - 1.0) 07/08/17 16:00 Ur Leukocyte Esterase NEGATIVE (NEGATIVE) 07/08/17 16:00 Urine RBC NONE SEEN /hpf (0-5) 07/08/17 16:00 Urine WBC NONE SEEN /hpf (0-5) 07/08/17 16:00 Ur Epithelial Cells NONE SEEN /lpf (FEW) 07/08/17 16:00 Urine Bacteria NONE SEEN /hpf (NONE SEEN) 07/08/17 16:00 Salicylates < 25.0 mg/L (30.0-100.0) L 07/08/17 16:44 Urine Opiates Screen NEGATIVE (NEGATIVE) 07/08/17 16:00 Urine Methadone Screen NEGATIVE (NEGATIVE) 07/08/17 16:00 Acetaminophen < 10.0 ug/mL (10.0-30.0) L 07/08/17 16:44 Ur Barbiturates Screen NEGATIVE (NEGATIVE) 07/08/17 16:00 Valproic Acid < 10.0 ug/mL (50.0-100.0) L 07/14/17 12:31 Ur Tricyclics Screen NEGATIVE (NEGATIVE) 07/08/17 16:00 Ur Phencyclidine Scrn NEGATIVE (NEGATIVE) 07/08/17 16:00 Amphetamines Screen NEGATIVE (NEGATIVE) 07/08/17 16:00 U Methamphetamines Scrn NEGATIVE (NEGATIVE) 07/08/17 16:00 U Benzodiazepines Scrn NEGATIVE (NEGATIVE) 07/08/17 16:00 U Cocaine Metab Screen NEGATIVE (NEGATIVE) 07/08/17 16:00 U Cannabinoids Screen POSITIVE (NEGATIVE) H 07/08/17 16:00 Ethyl Alcohol < 10 mg/dL (0-10) 07/08/17 16:44 RPR NONREACTIVE (NONREACTIVE) 07/08/17 16:44 - Physical Exam Vitals and I&O: Vital Signs Temp 97.8 F 08/04/17 06:25 Pulse 60 08/04/17 06:25 Resp 18 08/04/17 06:25 BP 94/65 08/04/17 06:25 Pulse Ox 99 08/04/17 06:25 Intake & Output 08/03/17 08/04/17 08/04/17 18:59 06:59 18:59 Intake Total 1200 240 Balance 1200 240 Intake: Oral 1200 240 Other: # Voids 4 3 # Bowel Movements 1 0 Active Medications: Current Medications Acetaminophen (Tylenol) 650 mg PO Q4HR PRN PRN Reason: Mild Pain / Temp above 100 Stop: 09/06/17 18:47 Last Admin: 08/03/17 13:46 Dose: 650 mg Al Hydrox/Mg Hydrox/Simethicone (Maalox) 30 ml PO Q4HR PRN PRN Reason: GI DISTRESS Stop: 09/06/17 18:47 Amoxicillin (Amoxil) 500 mg PO TID [facility] Stop: 10/01/17 13:59 Last Admin: 08/03/17 20:36 Dose: 500 mg Divalproex Sodium (Depakote Dr) 500 mg PO BID [facility] PRN Reason: Protocol Stop: 09/12/17 16:59 Last Admin: 08/03/17 19:02 Dose: Not Given Haloperidol (Haldol) 2 mg PO BID [facility] PRN Reason: Protocol Stop: 10/02/17 16:59 Last Admin: 08/03/17 16:52 Dose: 2 mg Haloperidol Lactate (Haldol) 2 mg IM BID PRN PRN Reason: Agitation Stop: 10/02/17 10:24 Loratadine (Claritin) 10 mg PO DAILY PRN PRN Reason: Allergy Symptoms Stop: 09/10/17 08:46 Last Admin: 07/31/17 21:45 Dose: 10 mg Magnesium Hydroxide (Milk Of Magnesia) 30 ml PO HS PRN PRN Reason: Constipation Multivitamins/Vitamin C (Theragran) 1 tab PO DAILY [facility] Stop: 09/07/17 08:59 Last Admin: 08/03/17 19:03 Dose: Not Given Zolpidem Tartrate (Ambien) 5 mg PO HS PRN PRN Reason: Insomnia Stop: 09/29/17 22:50 Last Admin: 08/03/17 21:50 Dose: 5 mg General: Alert, No acute distress HEENT: Atraumatic, PERRLA Cardiovascular: Regular rate Lungs: Clear to auscultation Abdomen: Bowel sounds, Soft Extremities: Other (No edema) Neurological: Normal gait Skin: Other (Warm and dry) Psych/Mental Status: Other (Confused, not oriented) Assessment/Plan - Assessment Assessment: Patient is awake, alert, calm, in no acute distress. DX: Psychosis, HTN. - Plan Plan: Patient is under Psychiatric care, continue with SNF meds. Will continue to monitor. Nutritional Asmnt/Malnutr-PDOC - Dietary Evaluation Malnutrition Findings (Please click <Entered> for more info): Nutritional Asmnt/Malnutrition Start: 07/15/17 16: 48 Text: Status: Complete Freq: Document 07/15/17 16:54 LCHENG (Rec: 07/15/17 16:57 [facility] Nutritional Asmnt/Malnutrition Patient General Information Nutritional Screening Low Risk Diagnosis Homicidal ideation, agitation Pertinent Medical Hx/Surgical Hx CAD, HTN, schizophrenia Subjective Information Per EMR, PO intake 100% of meals. Current Diet Order/ Nutrition Support regualr Pertinent Medications theragran Pertinent Labs 07/08 glucose 109, A1c 5.5, alb 4.0 Nutritional Hx/Data Height 1.68 m Height (Calculated Centimeters) 167.6 Current Weight (lbs) 68.039 kg Weight (Calculated Kilograms) 68.0 Weight (Calculated Grams) 71508.9 [place] Body Weight 142 Body Mass Index (BMI) 24.2 Weight Status Approriate GI Symptoms GI Symptoms None Last BM 07/14 Difficult in: None Skin Integrity/Comment: intact Current %PO Good (75-100%) Estimated Nutritional Goals BEE in Kcals: Using Current wt Calories/Kcals/Kg 25-30 Kcals Calculated 9968-3591 Protein: Using Current wt Protein g/k Protein Calculated 68 Fluid: ml 1700-2040ml (1ml/kcal) Nutritional Problem No current Nutrition Prob Problem N/A Malnutrition Alert Protein-Calorie Malnutrition N/A Is there a minimum of two criteria No selected? Query Text:Check all the applicable criteria. A minimum of two criteria are recommended for diagnosis of either severe or non-severe malnutrition. Intervention/Recommendation Comments 1. Continue with current diet as ordered. 2. Monitor PO intake, wt, labs and skin integrity 3. F/U as low risk in 7ddays, 07/22 Expected Outcomes/Goals Expected Outcomes/Goals 1. PO intake to meet at least 75% of nutritional needs. 2. Wt stability, skin to remain intact, labs to approach WNL.
--- NOTE | 2017-08-04 12:19 | Progress Notes ---
DATE: 08/04/2017 The patient still psychotic, delusional, talking about the [place]. Riese happened yesterday, was upheld. He is getting Haldol. He is calm but remains highly grandiose. ASSESSMENT: The patient is still paranoid, delusional, homicidal, homicidal ideations. PLAN: We will continue to monitor. We will continue Haldol with Haldol backup. We will increase his Haldol dosing today. JOB# [id number]
[2017-08-04] MEDS: Multivitamin Tab PO SCH (14:48)
--- NOTE | 2017-08-05 09:09 | General Progress Note ---
Subjective - Review of Systems Service Date: 08/05/17 Subjective: I am fine Objective - Results Result Diagrams: 07/08/17 16:44 07/08/17 16:44 Recent Labs: Laboratory Last Values WBC 7.1 Th/cmm (4.8-10.8) 07/08/17 16:44 RBC 4.67 Mil/cmm (4.30-5.70) 07/08/17 16:44 Hgb 14.2 gm/dL (12-16) 07/08/17 16:44 Hct 42.7 % (41.0-60) 07/08/17 16:44 MCV 91.4 fl (80-99) 07/08/17 16:44 MCH 30.4 pg (26.0-30.0) H 07/08/17 16:44 MCHC Differential 33.3 pg (28.0-36.0) 07/08/17 16:44 RDW 12.3 % (11.5-20.0) 07/08/17 16:44 Plt Count 288 Th/cmm (150-400) 07/08/17 16:44 MPV 7.0 fl 07/08/17 16:44 Neutrophils % 55.9 % (40.0-80.0) 07/08/17 16:44 Lymphocytes % 26.2 % (20.0-50.0) 07/08/17 16:44 Monocytes % 10.9 % (2.0-10.0) H 07/08/17 16:44 Eosinophils % 6.9 % (0.0-5.0) H 07/08/17 16:44 Basophils % 0.1 % (0.0-2.0) 07/08/17 16:44 Sodium 138 mEq/L (136-145) 07/08/17 16:44 Potassium 4.6 mEq/L (3.5-5.1) 07/08/17 16:44 Chloride 105 mEq/L (98-107) 07/08/17 16:44 Carbon Dioxide 29.3 mEq/L (21.0-31.0) 07/08/17 16:44 Anion Gap 8.3 (7.0-16.0) 07/08/17 16:44 BUN 17 mg/dL (7-25) 07/08/17 16:44 Creatinine 1.0 mg/dL (0.7-1.3) 07/08/17 16:44 Est GFR ( Amer) > 60.0 ml/min (>90) 07/08/17 16:44 Est GFR (Non-Af Amer) > 60.0 ml/min 07/08/17 16:44 BUN/Creatinine Ratio 17.0 07/08/17 16:44 Glucose 109 mg/dL (70-105) H 07/08/17 16:44 Hemoglobin A1c % 5.5 % (4.0-6.0) 07/08/17 16:44 Calcium 10.2 mg/dL (8.6-10.3) 07/08/17 16:44 Total Bilirubin 0.5 mg/dL (0.3-1.0) 07/08/17 16:44 AST 14 U/L (13-39) 07/08/17 16:44 ALT 14 U/L (7-52) 07/08/17 16:44 Alkaline Phosphatase 68 U/L (34-104) 07/08/17 16:44 Total Protein 6.9 gm/dL (6.0-8.3) 07/08/17 16:44 Albumin 4.0 gm/dL (4.2-5.5) L 07/08/17 16:44 Globulin 2.9 gm/dL 07/08/17 16:44 Albumin/Globulin Ratio 1.4 (1.0-1.8) 07/08/17 16:44 Triglycerides 86 mg/dL (<150) 07/08/17 16:44 Cholesterol 160 mg/dL (<200) 07/08/17 16:44 LDL Cholesterol Direct 100 mg/dL (75-193) 07/08/17 16:44 HDL Cholesterol 47 mg/dL (23-92) 07/08/17 16:44 TSH 0.44 uIU/ml (0.34-5.60) 07/08/17 16:44 Urine Source CLEAN C 07/08/17 16:00 Urine Color YELLOW 07/08/17 16:00 Urine Clarity CLEAR (CLEAR) 07/08/17 16:00 Urine pH 7.0 (4.6 - 8.0) 07/08/17 16:00 Ur Specific [place] 1.020 (1.005-1.030) 07/08/17 16:00 Urine Protein NEGATIVE mg/dL (NEGATIVE) 07/08/17 16:00 Urine Glucose (UA) NEGATIVE mg/dL (NEGATIVE) 07/08/17 16:00 Urine Ketones NEGATIVE mg/dL (NEGATIVE) 07/08/17 16:00 Urine Blood NEGATIVE (NEGATIVE) 07/08/17 16:00 Urine Nitrate NEGATIVE (NEGATIVE) 07/08/17 16:00 Urine Bilirubin NEGATIVE (NEGATIVE) 07/08/17 16:00 Urine Urobilinogen 0.2 E.U./dL (0.2 - 1.0) 07/08/17 16:00 Ur Leukocyte Esterase NEGATIVE (NEGATIVE) 07/08/17 16:00 Urine RBC NONE SEEN /hpf (0-5) 07/08/17 16:00 Urine WBC NONE SEEN /hpf (0-5) 07/08/17 16:00 Ur Epithelial Cells NONE SEEN /lpf (FEW) 07/08/17 16:00 Urine Bacteria NONE SEEN /hpf (NONE SEEN) 07/08/17 16:00 Salicylates < 25.0 mg/L (30.0-100.0) L 07/08/17 16:44 Urine Opiates Screen NEGATIVE (NEGATIVE) 07/08/17 16:00 Urine Methadone Screen NEGATIVE (NEGATIVE) 07/08/17 16:00 Acetaminophen < 10.0 ug/mL (10.0-30.0) L 07/08/17 16:44 Ur Barbiturates Screen NEGATIVE (NEGATIVE) 07/08/17 16:00 Valproic Acid < 10.0 ug/mL (50.0-100.0) L 07/14/17 12:31 Ur Tricyclics Screen NEGATIVE (NEGATIVE) 07/08/17 16:00 Ur Phencyclidine Scrn NEGATIVE (NEGATIVE) 07/08/17 16:00 Amphetamines Screen NEGATIVE (NEGATIVE) 07/08/17 16:00 U Methamphetamines Scrn NEGATIVE (NEGATIVE) 07/08/17 16:00 U Benzodiazepines Scrn NEGATIVE (NEGATIVE) 07/08/17 16:00 U Cocaine Metab Screen NEGATIVE (NEGATIVE) 07/08/17 16:00 U Cannabinoids Screen POSITIVE (NEGATIVE) H 07/08/17 16:00 Ethyl Alcohol < 10 mg/dL (0-10) 07/08/17 16:44 RPR NONREACTIVE (NONREACTIVE) 07/08/17 16:44 - Physical Exam Vitals and I&O: Vital Signs Temp 97.3 F 08/05/17 06:14 Pulse 68 08/05/17 06:14 Resp 20 08/05/17 06:14 BP 105/65 08/05/17 06:14 Pulse Ox 100 08/05/17 06:14 Intake & Output 08/04/17 08/05/17 08/05/17 18:59 06:59 18:59 Intake Total 1200 660 Balance 1200 660 Intake: Oral 1200 660 Other: # Voids 3 2 # Bowel Movements 1 1 Active Medications: Current Medications Acetaminophen (Tylenol) 650 mg PO Q4HR PRN PRN Reason: Mild Pain / Temp above 100 Stop: 09/06/17 18:47 Last Admin: 08/03/17 13:46 Dose: 650 mg Al Hydrox/Mg Hydrox/Simethicone (Maalox) 30 ml PO Q4HR PRN PRN Reason: GI DISTRESS Stop: 09/06/17 18:47 Amoxicillin (Amoxil) 500 mg PO TID [facility] Stop: 10/01/17 13:59 Last Admin: 08/04/17 20:40 Dose: 500 mg Divalproex Sodium (Depakote Dr) 500 mg PO BID [facility] PRN Reason: Protocol Stop: 09/12/17 16:59 Last Admin: 08/04/17 17:35 Dose: 500 mg Haloperidol (Haldol) 4 mg PO BID [facility] PRN Reason: Protocol Stop: 10/03/17 11:29 Last Admin: 08/04/17 17:35 Dose: 4 mg Haloperidol Lactate (Haldol) 2 mg IM BID PRN PRN Reason: Agitation Stop: 10/02/17 10:24 Loratadine (Claritin) 10 mg PO DAILY PRN PRN Reason: Allergy Symptoms Stop: 09/10/17 08:46 Last Admin: 07/31/17 21:45 Dose: 10 mg Magnesium Hydroxide (Milk Of Magnesia) 30 ml PO HS PRN PRN Reason: Constipation Multivitamins/Vitamin C (Theragran) 1 tab PO DAILY [facility] Stop: 09/07/17 08:59 Last Admin: 08/04/17 14:48 Dose: Not Given Zolpidem Tartrate (Ambien) 5 mg PO HS PRN PRN Reason: Insomnia Stop: 09/29/17 22:50 Last Admin: 08/04/17 20:42 Dose: 5 mg General: Alert, No acute distress HEENT: Atraumatic, PERRLA Cardiovascular: Regular rate Lungs: Clear to auscultation Abdomen: Bowel sounds, Soft Extremities: Other (No edema) Neurological: Normal gait Skin: Other (Warm and dry) Psych/Mental Status: Other (Confused, not oriented) Assessment/Plan - Assessment Assessment: Patient is awake, alert, calm, in no acute distress. DX: Psychosis, HTN. - Plan Plan: Patient is under Psychiatric care, continue with SNF meds. Will continue to monitor. Nutritional Asmnt/Malnutr-PDOC - Dietary Evaluation Malnutrition Findings (Please click <Entered> for more info): Nutritional Asmnt/Malnutrition Start: 07/15/17 16: 48 Text: Status: Complete Freq: Document 07/15/17 16:54 LCHENG (Rec: 07/15/17 16:57 [facility] Nutritional Asmnt/Malnutrition Patient General Information Nutritional Screening Low Risk Diagnosis Homicidal ideation, agitation Pertinent Medical Hx/Surgical Hx CAD, HTN, schizophrenia Subjective Information Per EMR, PO intake 100% of meals. Current Diet Order/ Nutrition Support regualr Pertinent Medications theragran Pertinent Labs 07/08 glucose 109, A1c 5.5, alb 4.0 Nutritional Hx/Data Height 1.68 m Height (Calculated Centimeters) 167.6 Current Weight (lbs) 68.039 kg Weight (Calculated Kilograms) 68.0 Weight (Calculated Grams) 81058.9 [place] Body Weight 142 Body Mass Index (BMI) 24.2 Weight Status Approriate GI Symptoms GI Symptoms None Last BM 07/14 Difficult in: None Skin Integrity/Comment: intact Current %PO Good (75-100%) Estimated Nutritional Goals BEE in Kcals: Using Current wt Calories/Kcals/Kg 25-30 Kcals Calculated 7302-7445 Protein: Using Current wt Protein g/k Protein Calculated 68 Fluid: ml 1700-2040ml (1ml/kcal) Nutritional Problem No current Nutrition Prob Problem N/A Malnutrition Alert Protein-Calorie Malnutrition N/A Is there a minimum of two criteria No selected? Query Text:Check all the applicable criteria. A minimum of two criteria are recommended for diagnosis of either severe or non-severe malnutrition. Intervention/Recommendation Comments 1. Continue with current diet as ordered. 2. Monitor PO intake, wt, labs and skin integrity 3. F/U as low risk in 7ddays, 07/22 Expected Outcomes/Goals Expected Outcomes/Goals 1. PO intake to meet at least 75% of nutritional needs. 2. Wt stability, skin to remain intact, labs to approach WNL.
[2017-08-05] MEDS: Multivitamin Tab PO SCH (13:40)
--- NOTE | 2017-08-05 18:13 | Progress Notes ---
DATE: 08/05/2017 The patient remains psychotic, still delusional, still talking about [employer] [place] [employer]. However, he seems to be talking less about this, more interactive, more sociable. However, history of psychosis, certainly persists. He is calmer, more cooperative, following the rules and directions. ASSESSMENT: The patient remains delusional, still psychotic, but somewhat calmer taking his medications. PLAN: We will continue to monitor. I did increase his Haldol dosing. I will be initiating him on Haldol decanoate. JOB# [id number]
[2017-08-06] MEDS: Multivitamin Tab PO SCH (09:50)
--- NOTE | 2017-08-06 14:31 | General Progress Note ---
Subjective - Review of Systems Service Date: 08/06/17 Subjective: I am fine Objective - Results Result Diagrams: 07/08/17 16:44 07/08/17 16:44 Recent Labs: Laboratory Last Values WBC 7.1 Th/cmm (4.8-10.8) 07/08/17 16:44 RBC 4.67 Mil/cmm (4.30-5.70) 07/08/17 16:44 Hgb 14.2 gm/dL (12-16) 07/08/17 16:44 Hct 42.7 % (41.0-60) 07/08/17 16:44 MCV 91.4 fl (80-99) 07/08/17 16:44 MCH 30.4 pg (26.0-30.0) H 07/08/17 16:44 MCHC Differential 33.3 pg (28.0-36.0) 07/08/17 16:44 RDW 12.3 % (11.5-20.0) 07/08/17 16:44 Plt Count 288 Th/cmm (150-400) 07/08/17 16:44 MPV 7.0 fl 07/08/17 16:44 Neutrophils % 55.9 % (40.0-80.0) 07/08/17 16:44 Lymphocytes % 26.2 % (20.0-50.0) 07/08/17 16:44 Monocytes % 10.9 % (2.0-10.0) H 07/08/17 16:44 Eosinophils % 6.9 % (0.0-5.0) H 07/08/17 16:44 Basophils % 0.1 % (0.0-2.0) 07/08/17 16:44 Sodium 138 mEq/L (136-145) 07/08/17 16:44 Potassium 4.6 mEq/L (3.5-5.1) 07/08/17 16:44 Chloride 105 mEq/L (98-107) 07/08/17 16:44 Carbon Dioxide 29.3 mEq/L (21.0-31.0) 07/08/17 16:44 Anion Gap 8.3 (7.0-16.0) 07/08/17 16:44 BUN 17 mg/dL (7-25) 07/08/17 16:44 Creatinine 1.0 mg/dL (0.7-1.3) 07/08/17 16:44 Est GFR ( Amer) > 60.0 ml/min (>90) 07/08/17 16:44 Est GFR (Non-Af Amer) > 60.0 ml/min 07/08/17 16:44 BUN/Creatinine Ratio 17.0 07/08/17 16:44 Glucose 109 mg/dL (70-105) H 07/08/17 16:44 Hemoglobin A1c % 5.5 % (4.0-6.0) 07/08/17 16:44 Calcium 10.2 mg/dL (8.6-10.3) 07/08/17 16:44 Total Bilirubin 0.5 mg/dL (0.3-1.0) 07/08/17 16:44 AST 14 U/L (13-39) 07/08/17 16:44 ALT 14 U/L (7-52) 07/08/17 16:44 Alkaline Phosphatase 68 U/L (34-104) 07/08/17 16:44 Total Protein 6.9 gm/dL (6.0-8.3) 07/08/17 16:44 Albumin 4.0 gm/dL (4.2-5.5) L 07/08/17 16:44 Globulin 2.9 gm/dL 07/08/17 16:44 Albumin/Globulin Ratio 1.4 (1.0-1.8) 07/08/17 16:44 Triglycerides 86 mg/dL (<150) 07/08/17 16:44 Cholesterol 160 mg/dL (<200) 07/08/17 16:44 LDL Cholesterol Direct 100 mg/dL (75-193) 07/08/17 16:44 HDL Cholesterol 47 mg/dL (23-92) 07/08/17 16:44 TSH 0.44 uIU/ml (0.34-5.60) 07/08/17 16:44 Urine Source CLEAN C 07/08/17 16:00 Urine Color YELLOW 07/08/17 16:00 Urine Clarity CLEAR (CLEAR) 07/08/17 16:00 Urine pH 7.0 (4.6 - 8.0) 07/08/17 16:00 Ur Specific [place] 1.020 (1.005-1.030) 07/08/17 16:00 Urine Protein NEGATIVE mg/dL (NEGATIVE) 07/08/17 16:00 Urine Glucose (UA) NEGATIVE mg/dL (NEGATIVE) 07/08/17 16:00 Urine Ketones NEGATIVE mg/dL (NEGATIVE) 07/08/17 16:00 Urine Blood NEGATIVE (NEGATIVE) 07/08/17 16:00 Urine Nitrate NEGATIVE (NEGATIVE) 07/08/17 16:00 Urine Bilirubin NEGATIVE (NEGATIVE) 07/08/17 16:00 Urine Urobilinogen 0.2 E.U./dL (0.2 - 1.0) 07/08/17 16:00 Ur Leukocyte Esterase NEGATIVE (NEGATIVE) 07/08/17 16:00 Urine RBC NONE SEEN /hpf (0-5) 07/08/17 16:00 Urine WBC NONE SEEN /hpf (0-5) 07/08/17 16:00 Ur Epithelial Cells NONE SEEN /lpf (FEW) 07/08/17 16:00 Urine Bacteria NONE SEEN /hpf (NONE SEEN) 07/08/17 16:00 Salicylates < 25.0 mg/L (30.0-100.0) L 07/08/17 16:44 Urine Opiates Screen NEGATIVE (NEGATIVE) 07/08/17 16:00 Urine Methadone Screen NEGATIVE (NEGATIVE) 07/08/17 16:00 Acetaminophen < 10.0 ug/mL (10.0-30.0) L 07/08/17 16:44 Ur Barbiturates Screen NEGATIVE (NEGATIVE) 07/08/17 16:00 Valproic Acid < 10.0 ug/mL (50.0-100.0) L 07/14/17 12:31 Ur Tricyclics Screen NEGATIVE (NEGATIVE) 07/08/17 16:00 Ur Phencyclidine Scrn NEGATIVE (NEGATIVE) 07/08/17 16:00 Amphetamines Screen NEGATIVE (NEGATIVE) 07/08/17 16:00 U Methamphetamines Scrn NEGATIVE (NEGATIVE) 07/08/17 16:00 U Benzodiazepines Scrn NEGATIVE (NEGATIVE) 07/08/17 16:00 U Cocaine Metab Screen NEGATIVE (NEGATIVE) 07/08/17 16:00 U Cannabinoids Screen POSITIVE (NEGATIVE) H 07/08/17 16:00 Ethyl Alcohol < 10 mg/dL (0-10) 07/08/17 16:44 RPR NONREACTIVE (NONREACTIVE) 07/08/17 16:44 - Physical Exam Vitals and I&O: Vital Signs Temp 97 F 08/06/17 07:04 Pulse 82 08/06/17 08:00 Resp 20 08/06/17 07:04 BP 117/63 08/06/17 07:04 Pulse Ox 98 08/06/17 07:04 Intake & Output 08/05/17 08/06/17 08/06/17 18:59 06:59 18:59 Intake Total 1200 120 Balance 1200 120 Intake: Oral 1200 120 Other: # Voids 3 3 # Bowel Movements 1 Active Medications: Current Medications Acetaminophen (Tylenol) 650 mg PO Q4HR PRN PRN Reason: Mild Pain / Temp above 100 Stop: 09/06/17 18:47 Last Admin: 08/03/17 13:46 Dose: 650 mg Al Hydrox/Mg Hydrox/Simethicone (Maalox) 30 ml PO Q4HR PRN PRN Reason: GI DISTRESS Stop: 09/06/17 18:47 Amoxicillin (Amoxil) 500 mg PO TID [facility] Stop: 10/01/17 13:59 Last Admin: 08/06/17 09:49 Dose: 500 mg Benztropine Mesylate (Cogentin) 1 mg PO BID [facility] Stop: 10/05/17 16:59 Divalproex Sodium (Depakote Dr) 500 mg PO BID [facility] PRN Reason: Protocol Stop: 09/12/17 16:59 Last Admin: 08/06/17 09:49 Dose: 500 mg Haloperidol (Haldol) 4 mg PO BID [facility] PRN Reason: Protocol Stop: 10/03/17 11:29 Last Admin: 08/06/17 09:49 Dose: 4 mg Haloperidol Decanoate (Haldol Dec) 50 mg IM QMONTH KATHIE PRN Reason: Protocol Stop: 10/04/17 16:44 Last Admin: 08/05/17 18:15 Dose: 50 mg Haloperidol Lactate (Haldol) 2 mg IM BID PRN PRN Reason: Agitation Stop: 10/02/17 10:24 Loratadine (Claritin) 10 mg PO DAILY PRN PRN Reason: Allergy Symptoms Stop: 09/10/17 08:46 Last Admin: 07/31/17 21:45 Dose: 10 mg Magnesium Hydroxide (Milk Of Magnesia) 30 ml PO HS PRN PRN Reason: Constipation Multivitamins/Vitamin C (Theragran) 1 tab PO DAILY [facility] Stop: 09/07/17 08:59 Last Admin: 08/06/17 09:50 Dose: 1 tab Zolpidem Tartrate (Ambien) 5 mg PO HS PRN PRN Reason: Insomnia Stop: 09/29/17 22:50 Last Admin: 08/05/17 20:41 Dose: 5 mg General: Alert, No acute distress HEENT: Atraumatic, PERRLA Cardiovascular: Regular rate Lungs: Clear to auscultation Abdomen: Bowel sounds, Soft Extremities: Other (No edema) Neurological: Normal gait Skin: Other (Warm and dry) Psych/Mental Status: Other (Confused, not oriented) Assessment/Plan - Assessment Assessment: Patient is awake, alert, calm, in no acute distress. DX: Psychosis, HTN. - Plan Plan: Patient is under Psychiatric care, continue with SNF meds. Will continue to monitor. Nutritional Asmnt/Malnutr-PDOC - Dietary Evaluation Malnutrition Findings (Please click <Entered> for more info): Nutritional Asmnt/Malnutrition Start: 07/15/17 16: 48 Text: Status: Complete Freq: Document 07/15/17 16:54 LCHENG (Rec: 07/15/17 16:57 LCHENG [email or web address]) Nutritional Asmnt/Malnutrition Patient General Information Nutritional Screening Low Risk Diagnosis Homicidal ideation, agitation Pertinent Medical Hx/Surgical Hx CAD, HTN, schizophrenia Subjective Information Per EMR, PO intake 100% of meals. Current Diet Order/ Nutrition Support regualr Pertinent Medications theragran Pertinent Labs 07/08 glucose 109, A1c 5.5, alb 4.0 Nutritional Hx/Data Height 1.68 m Height (Calculated Centimeters) 167.6 Current Weight (lbs) 68.039 kg Weight (Calculated Kilograms) 68.0 Weight (Calculated Grams) 07993.9 [place] Body Weight 142 Body Mass Index (BMI) 24.2 Weight Status Approriate GI Symptoms GI Symptoms None Last BM 07/14 Difficult in: None Skin Integrity/Comment: intact Current %PO Good (75-100%) Estimated Nutritional Goals BEE in Kcals: Using Current wt Calories/Kcals/Kg 25-30 Kcals Calculated 2684-0215 Protein: Using Current wt Protein g/k Protein Calculated 68 Fluid: ml 1700-2040ml (1ml/kcal) Nutritional Problem No current Nutrition Prob Problem N/A Malnutrition Alert Protein-Calorie Malnutrition N/A Is there a minimum of two criteria No selected? Query Text:Check all the applicable criteria. A minimum of two criteria are recommended for diagnosis of either severe or non-severe malnutrition. Intervention/Recommendation Comments 1. Continue with current diet as ordered. 2. Monitor PO intake, wt, labs and skin integrity 3. F/U as low risk in 7ddays, 07/22 Expected Outcomes/Goals Expected Outcomes/Goals 1. PO intake to meet at least 75% of nutritional needs. 2. Wt stability, skin to remain intact, labs to approach WNL.
--- NOTE | 2017-08-06 20:20 | Progress Notes ---
DATE: 08/06/2017 The patient is still talking about the [place] [employer] [place] less, still talking about wanting to hurt his cousin, but less. The patient still with ongoing psychotic symptoms, but he is in for more calm and cooperative. His ideas of how he will hurt the cousin are far from . He in fact demonstrated how he will "kill his cousin" on me a few weeks ago pointing his finger in my chest, noting that by doing this his cousin will spontaneously decompressed. He has been following unit rules and directions, generally pleasant on exam. ASSESSMENT: The patient remains delusional, fixed delusion and still talking about hurting his cousin, still out of touch with reality. PLAN: We will continue to monitor. The patient complaining of some side effects from the Haldol. We will initiate Cogentin. JOB# [id number]
[2017-08-07] MEDS: Multivitamin Tab PO SCH (08:33)
--- NOTE | 2017-08-07 08:55 | General Progress Note ---
Subjective - Review of Systems Service Date: 08/07/17 Subjective: I am fine Objective - Results Result Diagrams: 07/08/17 16:44 07/08/17 16:44 Recent Labs: Laboratory Last Values WBC 7.1 Th/cmm (4.8-10.8) 07/08/17 16:44 RBC 4.67 Mil/cmm (4.30-5.70) 07/08/17 16:44 Hgb 14.2 gm/dL (12-16) 07/08/17 16:44 Hct 42.7 % (41.0-60) 07/08/17 16:44 MCV 91.4 fl (80-99) 07/08/17 16:44 MCH 30.4 pg (26.0-30.0) H 07/08/17 16:44 MCHC Differential 33.3 pg (28.0-36.0) 07/08/17 16:44 RDW 12.3 % (11.5-20.0) 07/08/17 16:44 Plt Count 288 Th/cmm (150-400) 07/08/17 16:44 MPV 7.0 fl 07/08/17 16:44 Neutrophils % 55.9 % (40.0-80.0) 07/08/17 16:44 Lymphocytes % 26.2 % (20.0-50.0) 07/08/17 16:44 Monocytes % 10.9 % (2.0-10.0) H 07/08/17 16:44 Eosinophils % 6.9 % (0.0-5.0) H 07/08/17 16:44 Basophils % 0.1 % (0.0-2.0) 07/08/17 16:44 Sodium 138 mEq/L (136-145) 07/08/17 16:44 Potassium 4.6 mEq/L (3.5-5.1) 07/08/17 16:44 Chloride 105 mEq/L (98-107) 07/08/17 16:44 Carbon Dioxide 29.3 mEq/L (21.0-31.0) 07/08/17 16:44 Anion Gap 8.3 (7.0-16.0) 07/08/17 16:44 BUN 17 mg/dL (7-25) 07/08/17 16:44 Creatinine 1.0 mg/dL (0.7-1.3) 07/08/17 16:44 Est GFR ( Amer) > 60.0 ml/min (>90) 07/08/17 16:44 Est GFR (Non-Af Amer) > 60.0 ml/min 07/08/17 16:44 BUN/Creatinine Ratio 17.0 07/08/17 16:44 Glucose 109 mg/dL (70-105) H 07/08/17 16:44 Hemoglobin A1c % 5.5 % (4.0-6.0) 07/08/17 16:44 Calcium 10.2 mg/dL (8.6-10.3) 07/08/17 16:44 Total Bilirubin 0.5 mg/dL (0.3-1.0) 07/08/17 16:44 AST 14 U/L (13-39) 07/08/17 16:44 ALT 14 U/L (7-52) 07/08/17 16:44 Alkaline Phosphatase 68 U/L (34-104) 07/08/17 16:44 Total Protein 6.9 gm/dL (6.0-8.3) 07/08/17 16:44 Albumin 4.0 gm/dL (4.2-5.5) L 07/08/17 16:44 Globulin 2.9 gm/dL 07/08/17 16:44 Albumin/Globulin Ratio 1.4 (1.0-1.8) 07/08/17 16:44 Triglycerides 86 mg/dL (<150) 07/08/17 16:44 Cholesterol 160 mg/dL (<200) 07/08/17 16:44 LDL Cholesterol Direct 100 mg/dL (75-193) 07/08/17 16:44 HDL Cholesterol 47 mg/dL (23-92) 07/08/17 16:44 TSH 0.44 uIU/ml (0.34-5.60) 07/08/17 16:44 Urine Source CLEAN C 07/08/17 16:00 Urine Color YELLOW 07/08/17 16:00 Urine Clarity CLEAR (CLEAR) 07/08/17 16:00 Urine pH 7.0 (4.6 - 8.0) 07/08/17 16:00 Ur Specific [place] 1.020 (1.005-1.030) 07/08/17 16:00 Urine Protein NEGATIVE mg/dL (NEGATIVE) 07/08/17 16:00 Urine Glucose (UA) NEGATIVE mg/dL (NEGATIVE) 07/08/17 16:00 Urine Ketones NEGATIVE mg/dL (NEGATIVE) 07/08/17 16:00 Urine Blood NEGATIVE (NEGATIVE) 07/08/17 16:00 Urine Nitrate NEGATIVE (NEGATIVE) 07/08/17 16:00 Urine Bilirubin NEGATIVE (NEGATIVE) 07/08/17 16:00 Urine Urobilinogen 0.2 E.U./dL (0.2 - 1.0) 07/08/17 16:00 Ur Leukocyte Esterase NEGATIVE (NEGATIVE) 07/08/17 16:00 Urine RBC NONE SEEN /hpf (0-5) 07/08/17 16:00 Urine WBC NONE SEEN /hpf (0-5) 07/08/17 16:00 Ur Epithelial Cells NONE SEEN /lpf (FEW) 07/08/17 16:00 Urine Bacteria NONE SEEN /hpf (NONE SEEN) 07/08/17 16:00 Salicylates < 25.0 mg/L (30.0-100.0) L 07/08/17 16:44 Urine Opiates Screen NEGATIVE (NEGATIVE) 07/08/17 16:00 Urine Methadone Screen NEGATIVE (NEGATIVE) 07/08/17 16:00 Acetaminophen < 10.0 ug/mL (10.0-30.0) L 07/08/17 16:44 Ur Barbiturates Screen NEGATIVE (NEGATIVE) 07/08/17 16:00 Valproic Acid < 10.0 ug/mL (50.0-100.0) L 07/14/17 12:31 Ur Tricyclics Screen NEGATIVE (NEGATIVE) 07/08/17 16:00 Ur Phencyclidine Scrn NEGATIVE (NEGATIVE) 07/08/17 16:00 Amphetamines Screen NEGATIVE (NEGATIVE) 07/08/17 16:00 U Methamphetamines Scrn NEGATIVE (NEGATIVE) 07/08/17 16:00 U Benzodiazepines Scrn NEGATIVE (NEGATIVE) 07/08/17 16:00 U Cocaine Metab Screen NEGATIVE (NEGATIVE) 07/08/17 16:00 U Cannabinoids Screen POSITIVE (NEGATIVE) H 07/08/17 16:00 Ethyl Alcohol < 10 mg/dL (0-10) 07/08/17 16:44 RPR NONREACTIVE (NONREACTIVE) 07/08/17 16:44 - Physical Exam Vitals and I&O: Vital Signs Temp 98.3 F 08/07/17 07:22 Pulse 80 08/07/17 07:22 Resp 20 08/07/17 07:22 BP 105/72 08/07/17 07:22 Pulse Ox 98 08/07/17 07:22 Intake & Output 08/06/17 08/07/17 08/07/17 18:59 06:59 18:59 Intake Total 2520 240 Balance 2520 240 Intake: Oral 2520 240 Other: # Voids 4 4 # Bowel Movements 1 1 Active Medications: Current Medications Acetaminophen (Tylenol) 650 mg PO Q4HR PRN PRN Reason: Mild Pain / Temp above 100 Stop: 09/06/17 18:47 Last Admin: 08/03/17 13:46 Dose: 650 mg Al Hydrox/Mg Hydrox/Simethicone (Maalox) 30 ml PO Q4HR PRN PRN Reason: GI DISTRESS Stop: 09/06/17 18:47 Amoxicillin (Amoxil) 500 mg PO TID [facility] Stop: 10/01/17 13:59 Last Admin: 08/07/17 08:34 Dose: 500 mg Benztropine Mesylate (Cogentin) 1 mg PO BID [facility] Stop: 10/05/17 16:59 Last Admin: 08/07/17 08:34 Dose: 1 mg Divalproex Sodium (Depakote Dr) 500 mg PO BID KATHIE PRN Reason: Protocol Stop: 09/12/17 16:59 Last Admin: 08/07/17 08:33 Dose: 500 mg Haloperidol (Haldol) 4 mg PO BID KATHIE PRN Reason: Protocol Stop: 10/03/17 11:29 Last Admin: 08/07/17 08:32 Dose: 4 mg Haloperidol Decanoate (Haldol Dec) 50 mg IM QMONTH KATHIE PRN Reason: Protocol Stop: 10/04/17 16:44 Last Admin: 08/05/17 18:15 Dose: 50 mg Haloperidol Lactate (Haldol) 2 mg IM BID PRN PRN Reason: Agitation Stop: 10/02/17 10:24 Loratadine (Claritin) 10 mg PO DAILY PRN PRN Reason: Allergy Symptoms Stop: 09/10/17 08:46 Last Admin: 07/31/17 21:45 Dose: 10 mg Magnesium Hydroxide (Milk Of Magnesia) 30 ml PO HS PRN PRN Reason: Constipation Multivitamins/Vitamin C (Theragran) 1 tab PO DAILY KATHIE Stop: 09/07/17 08:59 Last Admin: 08/07/17 08:33 Dose: 1 tab Zolpidem Tartrate (Ambien) 5 mg PO HS PRN PRN Reason: Insomnia Stop: 09/29/17 22:50 Last Admin: 08/06/17 20:41 Dose: 5 mg General: Alert, No acute distress HEENT: Atraumatic, PERRLA Cardiovascular: Regular rate Lungs: Clear to auscultation Abdomen: Bowel sounds, Soft Extremities: Other (No edema) Neurological: Normal gait Skin: Other (Warm and dry) Psych/Mental Status: Other (Confused, not oriented) Assessment/Plan - Assessment Assessment: Patient is awake, alert, calm, in no acute distress. DX: Psychosis, HTN. - Plan Plan: Patient is under Psychiatric care, continue with SNF meds. Will continue to monitor. Nutritional Asmnt/Malnutr-PDOC - Dietary Evaluation Malnutrition Findings (Please click <Entered> for more info): Nutritional Asmnt/Malnutrition Start: 07/15/17 16: 48 Text: Status: Complete Freq: Document 07/15/17 16:54 [email or web address] (Rec: 07/15/17 16:57 [email or web address] [id number]) Nutritional Asmnt/Malnutrition Patient General Information Nutritional Screening Low Risk Diagnosis Homicidal ideation, agitation Pertinent Medical Hx/Surgical Hx CAD, HTN, schizophrenia Subjective Information Per EMR, PO intake 100% of meals. Current Diet Order/ Nutrition Support regualr Pertinent Medications theragran Pertinent Labs 07/08 glucose 109, A1c 5.5, alb 4.0 Nutritional Hx/Data Height 1.68 m Height (Calculated Centimeters) 167.6 Current Weight (lbs) 68.039 kg Weight (Calculated Kilograms) 68.0 Weight (Calculated Grams) 74840.9 [place] Body Weight 142 Body Mass Index (BMI) 24.2 Weight Status Approriate GI Symptoms GI Symptoms None Last BM 07/14 Difficult in: None Skin Integrity/Comment: intact Current %PO Good (75-100%) Estimated Nutritional Goals BEE in Kcals: Using Current wt Calories/Kcals/Kg 25-30 Kcals Calculated 3216-0069 Protein: Using Current wt Protein g/k Protein Calculated 68 Fluid: ml 1700-2040ml (1ml/kcal) Nutritional Problem No current Nutrition Prob Problem N/A Malnutrition Alert Protein-Calorie Malnutrition N/A Is there a minimum of two criteria No selected? Query Text:Check all the applicable criteria. A minimum of two criteria are recommended for diagnosis of either severe or non-severe malnutrition. Intervention/Recommendation Comments 1. Continue with current diet as ordered. 2. Monitor PO intake, wt, labs and skin integrity 3. F/U as low risk in 7ddays, 07/22 Expected Outcomes/Goals Expected Outcomes/Goals 1. PO intake to meet at least 75% of nutritional needs. 2. Wt stability, skin to remain intact, labs to approach WNL.
[2017-08-07] MEDS ORDERED: Probiotic Screen MC PRN (11:19)
--- NOTE | 2017-08-07 18:17 | Progress Notes ---
DATE: 08/07/2017 SUBJECTIVE: The patient seen, chart reviewed, discussed with staff. The patient is currently in the hospital, still delusional, psychotic, talking about the [employer]. He notes that on 09/18 after the [employer] is released his cousin will go after [place]. The patient states that he will not go after the cousin, he will not try to find the cousin and he will leave the cousin to come to him. So as long as the [id number] does not appear before him, he will not try to kill him with his finger and "spontaneous human combustion." The patient is sleeping well, eating well, withdrawn, tolerant to medications, no longer with any stomach upset or diarrhea. ASSESSMENT: The patient remains delusional, psychotic, homicidal, but there does not seem to be any lethality attached to his homicidal ideations with cousin. PLAN: We are trying to get the cousin a lot of information still. We have challenges getting information. To follow [place] but per the sister, the [id number] is aware as they were the ones to reach out to the authorities in the first place. JOB# [id number]
[2017-08-08] MEDS: Lactobacillus Rhamnosus GG 15 Billion CFU CAP.SPRINK PO SCH (09:14)
[2017-08-08] MEDS: Multivitamin Tab PO SCH (09:14)
--- NOTE | 2017-08-08 10:24 | General Progress Note ---
Subjective - Review of Systems Service Date: 08/08/17 Subjective: I am fine Objective - Results Result Diagrams: 07/08/17 16:44 07/08/17 16:44 Recent Labs: Laboratory Last Values WBC 7.1 Th/cmm (4.8-10.8) 07/08/17 16:44 RBC 4.67 Mil/cmm (4.30-5.70) 07/08/17 16:44 Hgb 14.2 gm/dL (12-16) 07/08/17 16:44 Hct 42.7 % (41.0-60) 07/08/17 16:44 MCV 91.4 fl (80-99) 07/08/17 16:44 MCH 30.4 pg (26.0-30.0) H 07/08/17 16:44 MCHC Differential 33.3 pg (28.0-36.0) 07/08/17 16:44 RDW 12.3 % (11.5-20.0) 07/08/17 16:44 Plt Count 288 Th/cmm (150-400) 07/08/17 16:44 MPV 7.0 fl 07/08/17 16:44 Neutrophils % 55.9 % (40.0-80.0) 07/08/17 16:44 Lymphocytes % 26.2 % (20.0-50.0) 07/08/17 16:44 Monocytes % 10.9 % (2.0-10.0) H 07/08/17 16:44 Eosinophils % 6.9 % (0.0-5.0) H 07/08/17 16:44 Basophils % 0.1 % (0.0-2.0) 07/08/17 16:44 Sodium 138 mEq/L (136-145) 07/08/17 16:44 Potassium 4.6 mEq/L (3.5-5.1) 07/08/17 16:44 Chloride 105 mEq/L (98-107) 07/08/17 16:44 Carbon Dioxide 29.3 mEq/L (21.0-31.0) 07/08/17 16:44 Anion Gap 8.3 (7.0-16.0) 07/08/17 16:44 BUN 17 mg/dL (7-25) 07/08/17 16:44 Creatinine 1.0 mg/dL (0.7-1.3) 07/08/17 16:44 Est GFR ( Amer) > 60.0 ml/min (>90) 07/08/17 16:44 Est GFR (Non-Af Amer) > 60.0 ml/min 07/08/17 16:44 BUN/Creatinine Ratio 17.0 07/08/17 16:44 Glucose 109 mg/dL (70-105) H 07/08/17 16:44 Hemoglobin A1c % 5.5 % (4.0-6.0) 07/08/17 16:44 Calcium 10.2 mg/dL (8.6-10.3) 07/08/17 16:44 Total Bilirubin 0.5 mg/dL (0.3-1.0) 07/08/17 16:44 AST 14 U/L (13-39) 07/08/17 16:44 ALT 14 U/L (7-52) 07/08/17 16:44 Alkaline Phosphatase 68 U/L (34-104) 07/08/17 16:44 Total Protein 6.9 gm/dL (6.0-8.3) 07/08/17 16:44 Albumin 4.0 gm/dL (4.2-5.5) L 07/08/17 16:44 Globulin 2.9 gm/dL 07/08/17 16:44 Albumin/Globulin Ratio 1.4 (1.0-1.8) 07/08/17 16:44 Triglycerides 86 mg/dL (<150) 07/08/17 16:44 Cholesterol 160 mg/dL (<200) 07/08/17 16:44 LDL Cholesterol Direct 100 mg/dL (75-193) 07/08/17 16:44 HDL Cholesterol 47 mg/dL (23-92) 07/08/17 16:44 TSH 0.44 uIU/ml (0.34-5.60) 07/08/17 16:44 Urine Source CLEAN C 07/08/17 16:00 Urine Color YELLOW 07/08/17 16:00 Urine Clarity CLEAR (CLEAR) 07/08/17 16:00 Urine pH 7.0 (4.6 - 8.0) 07/08/17 16:00 Ur Specific [place] 1.020 (1.005-1.030) 07/08/17 16:00 Urine Protein NEGATIVE mg/dL (NEGATIVE) 07/08/17 16:00 Urine Glucose (UA) NEGATIVE mg/dL (NEGATIVE) 07/08/17 16:00 Urine Ketones NEGATIVE mg/dL (NEGATIVE) 07/08/17 16:00 Urine Blood NEGATIVE (NEGATIVE) 07/08/17 16:00 Urine Nitrate NEGATIVE (NEGATIVE) 07/08/17 16:00 Urine Bilirubin NEGATIVE (NEGATIVE) 07/08/17 16:00 Urine Urobilinogen 0.2 E.U./dL (0.2 - 1.0) 07/08/17 16:00 Ur Leukocyte Esterase NEGATIVE (NEGATIVE) 07/08/17 16:00 Urine RBC NONE SEEN /hpf (0-5) 07/08/17 16:00 Urine WBC NONE SEEN /hpf (0-5) 07/08/17 16:00 Ur Epithelial Cells NONE SEEN /lpf (FEW) 07/08/17 16:00 Urine Bacteria NONE SEEN /hpf (NONE SEEN) 07/08/17 16:00 Salicylates < 25.0 mg/L (30.0-100.0) L 07/08/17 16:44 Urine Opiates Screen NEGATIVE (NEGATIVE) 07/08/17 16:00 Urine Methadone Screen NEGATIVE (NEGATIVE) 07/08/17 16:00 Acetaminophen < 10.0 ug/mL (10.0-30.0) L 07/08/17 16:44 Ur Barbiturates Screen NEGATIVE (NEGATIVE) 07/08/17 16:00 Valproic Acid < 10.0 ug/mL (50.0-100.0) L 07/14/17 12:31 Ur Tricyclics Screen NEGATIVE (NEGATIVE) 07/08/17 16:00 Ur Phencyclidine Scrn NEGATIVE (NEGATIVE) 07/08/17 16:00 Amphetamines Screen NEGATIVE (NEGATIVE) 07/08/17 16:00 U Methamphetamines Scrn NEGATIVE (NEGATIVE) 07/08/17 16:00 U Benzodiazepines Scrn NEGATIVE (NEGATIVE) 07/08/17 16:00 U Cocaine Metab Screen NEGATIVE (NEGATIVE) 07/08/17 16:00 U Cannabinoids Screen POSITIVE (NEGATIVE) H 07/08/17 16:00 Ethyl Alcohol < 10 mg/dL (0-10) 07/08/17 16:44 RPR NONREACTIVE (NONREACTIVE) 07/08/17 16:44 - Physical Exam Vitals and I&O: Vital Signs Temp 98.8 F 08/08/17 06:20 Pulse 70 08/08/17 06:20 Resp 20 08/08/17 06:20 BP 130/66 08/08/17 06:20 Pulse Ox 99 08/08/17 06:20 Intake & Output 08/07/17 08/08/17 08/08/17 18:59 06:59 18:59 Intake Total 1000 240 Balance 1000 240 Intake: Oral 1000 240 Other: # Voids 3 1 # Bowel Movements 0 Active Medications: Current Medications Acetaminophen (Tylenol) 650 mg PO Q4HR PRN PRN Reason: Mild Pain / Temp above 100 Stop: 09/06/17 18:47 Last Admin: 08/03/17 13:46 Dose: 650 mg Al Hydrox/Mg Hydrox/Simethicone (Maalox) 30 ml PO Q4HR PRN PRN Reason: GI DISTRESS Stop: 09/06/17 18:47 Amoxicillin (Amoxil) 500 mg PO TID [facility] Stop: 10/01/17 13:59 Last Admin: 08/08/17 09:11 Dose: 500 mg Benztropine Mesylate (Cogentin) 1 mg PO BID KATHIE Stop: 10/05/17 16:59 Last Admin: 08/08/17 09:06 Dose: 1 mg Divalproex Sodium (Depakote Dr) 500 mg PO BID KATHIE PRN Reason: Protocol Stop: 09/12/17 16:59 Last Admin: 08/08/17 09:13 Dose: 500 mg Haloperidol (Haldol) 4 mg PO BID KATHIE PRN Reason: Protocol Stop: 10/03/17 11:29 Last Admin: 08/08/17 09:06 Dose: 4 mg Haloperidol Decanoate (Haldol Dec) 50 mg IM QMONTH KATHIE PRN Reason: Protocol Stop: 10/04/17 16:44 Last Admin: 08/05/17 18:15 Dose: 50 mg Haloperidol Lactate (Haldol) 2 mg IM BID PRN PRN Reason: Agitation Stop: 10/02/17 10:24 Lactobacillus Rhamnosus (Culturelle 15b) 1 each PO DAILY KATHIE Stop: 10/07/17 08:59 Last Admin: 08/08/17 09:14 Dose: 1 each Loratadine (Claritin) 10 mg PO DAILY PRN PRN Reason: Allergy Symptoms Stop: 09/10/17 08:46 Last Admin: 07/31/17 21:45 Dose: 10 mg Magnesium Hydroxide (Milk Of Magnesia) 30 ml PO HS PRN PRN Reason: Constipation Miscellaneous (Probiotic Screen) 1 ea MC PRN PRN PRN Reason: PROTOCOL Stop: 10/06/17 11:18 Multivitamins/Vitamin C (Theragran) 1 tab PO DAILY KATHIE Stop: 09/07/17 08:59 Last Admin: 08/08/17 09:14 Dose: 1 tab Zolpidem Tartrate (Ambien) 5 mg PO HS PRN PRN Reason: Insomnia Stop: 09/29/17 22:50 Last Admin: 08/07/17 20:37 Dose: 5 mg General: Alert, No acute distress HEENT: Atraumatic, PERRLA Cardiovascular: Regular rate Lungs: Clear to auscultation Abdomen: Bowel sounds, Soft Extremities: Other (No edema) Neurological: Normal gait Skin: Other (Warm and dry) Psych/Mental Status: Other (Confused, not oriented) Assessment/Plan - Assessment Assessment: Patient is awake, alert, calm, in no acute distress. DX: Psychosis, HTN. - Plan Plan: Patient is under Psychiatric care, continue with SNF meds. Will continue to monitor. Nutritional Asmnt/Malnutr-PDOC - Dietary Evaluation Malnutrition Findings (Please click <Entered> for more info): Nutritional Asmnt/Malnutrition Start: 07/15/17 16: 48 Text: Status: Complete Freq: Document 07/15/17 16:54 [email or web address] (Rec: 07/15/17 16:57 [email or web address] [id number]) Nutritional Asmnt/Malnutrition Patient General Information Nutritional Screening Low Risk Diagnosis Homicidal ideation, agitation Pertinent Medical Hx/Surgical Hx CAD, HTN, schizophrenia Subjective Information Per EMR, PO intake 100% of meals. Current Diet Order/ Nutrition Support regualr Pertinent Medications theragran Pertinent Labs 07/08 glucose 109, A1c 5.5, alb 4.0 Nutritional Hx/Data Height 1.68 m Height (Calculated Centimeters) 167.6 Current Weight (lbs) 68.039 kg Weight (Calculated Kilograms) 68.0 Weight (Calculated Grams) 62609.9 [place] Body Weight 142 Body Mass Index (BMI) 24.2 Weight Status Approriate GI Symptoms GI Symptoms None Last BM 07/14 Difficult in: None Skin Integrity/Comment: intact Current %PO Good (75-100%) Estimated Nutritional Goals BEE in Kcals: Using Current wt Calories/Kcals/Kg 25-30 Kcals Calculated 3563-3901 Protein: Using Current wt Protein g/k Protein Calculated 68 Fluid: ml 1700-2040ml (1ml/kcal) Nutritional Problem No current Nutrition Prob Problem N/A Malnutrition Alert Protein-Calorie Malnutrition N/A Is there a minimum of two criteria No selected? Query Text:Check all the applicable criteria. A minimum of two criteria are recommended for diagnosis of either severe or non-severe malnutrition. Intervention/Recommendation Comments 1. Continue with current diet as ordered. 2. Monitor PO intake, wt, labs and skin integrity 3. F/U as low risk in 7ddays, 07/22 Expected Outcomes/Goals Expected Outcomes/Goals 1. PO intake to meet at least 75% of nutritional needs. 2. Wt stability, skin to remain intact, labs to approach WNL.
--- NOTE | 2017-08-09 02:21 | Progress Notes ---
DATE: 08/08/2017 SUBJECTIVE: Case discussed with staff of the patient, reviewed records. Covering for Dr. Eason. This is a well-known case to me as I have seen him before covering for Dr. Eason. The patient had to be [place] early this week because of refusal. He is still hearing voices, still threatening to harm his brother. He continues to be unpredictable, impulsive, delusional, so Dr. Berry is trying to deal with him and apparently he reports that if his cousin does not appear, he would not try to kill him with his finger, so basically he remained delusional, unpredictable, impulsive, needing redirection. He is compliant now with the medication because he is weak, he gets the Haldol if refuses p.o. medication and we will continue to work with the patient in group therapy, milieu therapy, and adjust the medication as needed. JOB# [id number]
[2017-08-09] MEDS: Multivitamin Tab PO SCH (08:25)
[2017-08-09] MEDS: Lactobacillus Rhamnosus GG 15 Billion CFU CAP.SPRINK PO SCH (08:26)
--- NOTE | 2017-08-09 11:42 | General Progress Note ---
Subjective - Review of Systems Service Date: 08/09/17 Subjective: I am fine Objective - Results Result Diagrams: 07/08/17 16:44 07/08/17 16:44 Recent Labs: Laboratory Last Values WBC 7.1 Th/cmm (4.8-10.8) 07/08/17 16:44 RBC 4.67 Mil/cmm (4.30-5.70) 07/08/17 16:44 Hgb 14.2 gm/dL (12-16) 07/08/17 16:44 Hct 42.7 % (41.0-60) 07/08/17 16:44 MCV 91.4 fl (80-99) 07/08/17 16:44 MCH 30.4 pg (26.0-30.0) H 07/08/17 16:44 MCHC Differential 33.3 pg (28.0-36.0) 07/08/17 16:44 RDW 12.3 % (11.5-20.0) 07/08/17 16:44 Plt Count 288 Th/cmm (150-400) 07/08/17 16:44 MPV 7.0 fl 07/08/17 16:44 Neutrophils % 55.9 % (40.0-80.0) 07/08/17 16:44 Lymphocytes % 26.2 % (20.0-50.0) 07/08/17 16:44 Monocytes % 10.9 % (2.0-10.0) H 07/08/17 16:44 Eosinophils % 6.9 % (0.0-5.0) H 07/08/17 16:44 Basophils % 0.1 % (0.0-2.0) 07/08/17 16:44 Sodium 138 mEq/L (136-145) 07/08/17 16:44 Potassium 4.6 mEq/L (3.5-5.1) 07/08/17 16:44 Chloride 105 mEq/L (98-107) 07/08/17 16:44 Carbon Dioxide 29.3 mEq/L (21.0-31.0) 07/08/17 16:44 Anion Gap 8.3 (7.0-16.0) 07/08/17 16:44 BUN 17 mg/dL (7-25) 07/08/17 16:44 Creatinine 1.0 mg/dL (0.7-1.3) 07/08/17 16:44 Est GFR ( Amer) > 60.0 ml/min (>90) 07/08/17 16:44 Est GFR (Non-Af Amer) > 60.0 ml/min 07/08/17 16:44 BUN/Creatinine Ratio 17.0 07/08/17 16:44 Glucose 109 mg/dL (70-105) H 07/08/17 16:44 Hemoglobin A1c % 5.5 % (4.0-6.0) 07/08/17 16:44 Calcium 10.2 mg/dL (8.6-10.3) 07/08/17 16:44 Total Bilirubin 0.5 mg/dL (0.3-1.0) 07/08/17 16:44 AST 14 U/L (13-39) 07/08/17 16:44 ALT 14 U/L (7-52) 07/08/17 16:44 Alkaline Phosphatase 68 U/L (34-104) 07/08/17 16:44 Total Protein 6.9 gm/dL (6.0-8.3) 07/08/17 16:44 Albumin 4.0 gm/dL (4.2-5.5) L 07/08/17 16:44 Globulin 2.9 gm/dL 07/08/17 16:44 Albumin/Globulin Ratio 1.4 (1.0-1.8) 07/08/17 16:44 Triglycerides 86 mg/dL (<150) 07/08/17 16:44 Cholesterol 160 mg/dL (<200) 07/08/17 16:44 LDL Cholesterol Direct 100 mg/dL (75-193) 07/08/17 16:44 HDL Cholesterol 47 mg/dL (23-92) 07/08/17 16:44 TSH 0.44 uIU/ml (0.34-5.60) 07/08/17 16:44 Urine Source CLEAN C 07/08/17 16:00 Urine Color YELLOW 07/08/17 16:00 Urine Clarity CLEAR (CLEAR) 07/08/17 16:00 Urine pH 7.0 (4.6 - 8.0) 07/08/17 16:00 Ur Specific [place] 1.020 (1.005-1.030) 07/08/17 16:00 Urine Protein NEGATIVE mg/dL (NEGATIVE) 07/08/17 16:00 Urine Glucose (UA) NEGATIVE mg/dL (NEGATIVE) 07/08/17 16:00 Urine Ketones NEGATIVE mg/dL (NEGATIVE) 07/08/17 16:00 Urine Blood NEGATIVE (NEGATIVE) 07/08/17 16:00 Urine Nitrate NEGATIVE (NEGATIVE) 07/08/17 16:00 Urine Bilirubin NEGATIVE (NEGATIVE) 07/08/17 16:00 Urine Urobilinogen 0.2 E.U./dL (0.2 - 1.0) 07/08/17 16:00 Ur Leukocyte Esterase NEGATIVE (NEGATIVE) 07/08/17 16:00 Urine RBC NONE SEEN /hpf (0-5) 07/08/17 16:00 Urine WBC NONE SEEN /hpf (0-5) 07/08/17 16:00 Ur Epithelial Cells NONE SEEN /lpf (FEW) 07/08/17 16:00 Urine Bacteria NONE SEEN /hpf (NONE SEEN) 07/08/17 16:00 Salicylates < 25.0 mg/L (30.0-100.0) L 07/08/17 16:44 Urine Opiates Screen NEGATIVE (NEGATIVE) 07/08/17 16:00 Urine Methadone Screen NEGATIVE (NEGATIVE) 07/08/17 16:00 Acetaminophen < 10.0 ug/mL (10.0-30.0) L 07/08/17 16:44 Ur Barbiturates Screen NEGATIVE (NEGATIVE) 07/08/17 16:00 Valproic Acid < 10.0 ug/mL (50.0-100.0) L 07/14/17 12:31 Ur Tricyclics Screen NEGATIVE (NEGATIVE) 07/08/17 16:00 Ur Phencyclidine Scrn NEGATIVE (NEGATIVE) 07/08/17 16:00 Amphetamines Screen NEGATIVE (NEGATIVE) 07/08/17 16:00 U Methamphetamines Scrn NEGATIVE (NEGATIVE) 07/08/17 16:00 U Benzodiazepines Scrn NEGATIVE (NEGATIVE) 07/08/17 16:00 U Cocaine Metab Screen NEGATIVE (NEGATIVE) 07/08/17 16:00 U Cannabinoids Screen POSITIVE (NEGATIVE) H 07/08/17 16:00 Ethyl Alcohol < 10 mg/dL (0-10) 07/08/17 16:44 RPR NONREACTIVE (NONREACTIVE) 07/08/17 16:44 - Physical Exam Vitals and I&O: Vital Signs Temp 97.8 F 08/09/17 06:41 Pulse 78 08/09/17 06:41 Resp 18 08/09/17 06:41 BP 100/58 08/09/17 06:41 Pulse Ox 97 08/09/17 06:41 Intake & Output 08/08/17 08/09/17 08/09/17 18:59 06:59 18:59 Intake Total 1200 480 Balance 1200 480 Intake: Oral 1200 480 Other: # Voids 1 # Bowel Movements 1 Active Medications: Current Medications Acetaminophen (Tylenol) 650 mg PO Q4HR PRN PRN Reason: Mild Pain / Temp above 100 Stop: 09/06/17 18:47 Last Admin: 08/03/17 13:46 Dose: 650 mg Al Hydrox/Mg Hydrox/Simethicone (Maalox) 30 ml PO Q4HR PRN PRN Reason: GI DISTRESS Stop: 09/06/17 18:47 Amoxicillin (Amoxil) 500 mg PO TID [facility] Stop: 10/01/17 13:59 Last Admin: 08/09/17 08:25 Dose: 500 mg Benztropine Mesylate (Cogentin) 1 mg PO BID KATHIE Stop: 10/05/17 16:59 Last Admin: 08/09/17 08:26 Dose: 1 mg Divalproex Sodium (Depakote Dr) 500 mg PO BID KATHIE PRN Reason: Protocol Stop: 09/12/17 16:59 Last Admin: 08/09/17 08:26 Dose: 500 mg Haloperidol (Haldol) 4 mg PO BID KATHIE PRN Reason: Protocol Stop: 10/03/17 11:29 Last Admin: 08/09/17 08:25 Dose: 4 mg Haloperidol Decanoate (Haldol Dec) 50 mg IM QMONTH KATHIE PRN Reason: Protocol Stop: 10/04/17 16:44 Last Admin: 08/05/17 18:15 Dose: 50 mg Haloperidol Lactate (Haldol) 2 mg IM BID PRN PRN Reason: Agitation Stop: 10/02/17 10:24 Lactobacillus Rhamnosus (Culturelle 15b) 1 each PO DAILY KATHIE Stop: 10/07/17 08:59 Last Admin: 08/09/17 08:26 Dose: 1 each Loratadine (Claritin) 10 mg PO DAILY PRN PRN Reason: Allergy Symptoms Stop: 09/10/17 08:46 Last Admin: 07/31/17 21:45 Dose: 10 mg Magnesium Hydroxide (Milk Of Magnesia) 30 ml PO HS PRN PRN Reason: Constipation Miscellaneous (Probiotic Screen) 1 ea MC PRN PRN PRN Reason: PROTOCOL Stop: 10/06/17 11:18 Multivitamins/Vitamin C (Theragran) 1 tab PO DAILY KATHIE Stop: 09/07/17 08:59 Last Admin: 08/09/17 08:25 Dose: 1 tab Zolpidem Tartrate (Ambien) 5 mg PO HS PRN PRN Reason: Insomnia Stop: 09/29/17 22:50 Last Admin: 08/08/17 20:57 Dose: 5 mg General: Alert, No acute distress HEENT: Atraumatic, PERRLA Cardiovascular: Regular rate Lungs: Clear to auscultation Abdomen: Bowel sounds, Soft Extremities: Other (No edema) Neurological: Normal gait Skin: Other (Warm and dry) Psych/Mental Status: Other (Confused, not oriented) Assessment/Plan - Assessment Assessment: Patient is awake, alert, calm, in no acute distress. DX: Psychosis, HTN. - Plan Plan: Patient is under Psychiatric care, continue with SNF meds. Will continue to monitor. Nutritional Asmnt/Malnutr-PDOC - Dietary Evaluation Malnutrition Findings (Please click <Entered> for more info): Nutritional Asmnt/Malnutrition Start: 07/15/17 16: 48 Text: Status: Complete Freq: Document 07/15/17 16:54 LCHENG (Rec: 07/15/17 16:57 LCHENG [email or web address]) Nutritional Asmnt/Malnutrition Patient General Information Nutritional Screening Low Risk Diagnosis Homicidal ideation, agitation Pertinent Medical Hx/Surgical Hx CAD, HTN, schizophrenia Subjective Information Per EMR, PO intake 100% of meals. Current Diet Order/ Nutrition Support regualr Pertinent Medications theragran Pertinent Labs 07/08 glucose 109, A1c 5.5, alb 4.0 Nutritional Hx/Data Height 1.68 m Height (Calculated Centimeters) 167.6 Current Weight (lbs) 68.039 kg Weight (Calculated Kilograms) 68.0 Weight (Calculated Grams) 34315.9 [place] Body Weight 142 Body Mass Index (BMI) 24.2 Weight Status Approriate GI Symptoms GI Symptoms None Last BM 07/14 Difficult in: None Skin Integrity/Comment: intact Current %PO Good (75-100%) Estimated Nutritional Goals BEE in Kcals: Using Current wt Calories/Kcals/Kg 25-30 Kcals Calculated 3919-0546 Protein: Using Current wt Protein g/k Protein Calculated 68 Fluid: ml 1700-2040ml (1ml/kcal) Nutritional Problem No current Nutrition Prob Problem N/A Malnutrition Alert Protein-Calorie Malnutrition N/A Is there a minimum of two criteria No selected? Query Text:Check all the applicable criteria. A minimum of two criteria are recommended for diagnosis of either severe or non-severe malnutrition. Intervention/Recommendation Comments 1. Continue with current diet as ordered. 2. Monitor PO intake, wt, labs and skin integrity 3. F/U as low risk in 7ddays, 07/22 Expected Outcomes/Goals Expected Outcomes/Goals 1. PO intake to meet at least 75% of nutritional needs. 2. Wt stability, skin to remain intact, labs to approach WNL.
--- NOTE | 2017-08-10 02:06 | Progress Notes ---
DATE: 08/09/2017 Case discussed with staff of the patient, reviewed records. The patient continues to report hearing voices and that he wants to harm his cousin with his finger. He continues to be unpredictable, impulsive, has to be Riese as he has refused to take his medications. Currently on Haldol Decanoate and oral Haldol and Depakote. He will get medication IM if refuses p.o. He has been here for the last 4 weeks with not much progress. We will continue to work with the patient in group therapy, milieu therapy, and adjust medications as needed. JOB# [id number]
[2017-08-10] MEDS: Lactobacillus Rhamnosus GG 15 Billion CFU CAP.SPRINK PO SCH (08:29)
[2017-08-10] MEDS: Multivitamin Tab PO SCH (08:30)
--- NOTE | 2017-08-10 09:05 | General Progress Note ---
Subjective - Review of Systems Service Date: 08/10/17 Subjective: I continue hearing voices Objective - Results Result Diagrams: 07/08/17 16:44 07/08/17 16:44 Recent Labs: Laboratory Last Values WBC 7.1 Th/cmm (4.8-10.8) 07/08/17 16:44 RBC 4.67 Mil/cmm (4.30-5.70) 07/08/17 16:44 Hgb 14.2 gm/dL (12-16) 07/08/17 16:44 Hct 42.7 % (41.0-60) 07/08/17 16:44 MCV 91.4 fl (80-99) 07/08/17 16:44 MCH 30.4 pg (26.0-30.0) H 07/08/17 16:44 MCHC Differential 33.3 pg (28.0-36.0) 07/08/17 16:44 RDW 12.3 % (11.5-20.0) 07/08/17 16:44 Plt Count 288 Th/cmm (150-400) 07/08/17 16:44 MPV 7.0 fl 07/08/17 16:44 Neutrophils % 55.9 % (40.0-80.0) 07/08/17 16:44 Lymphocytes % 26.2 % (20.0-50.0) 07/08/17 16:44 Monocytes % 10.9 % (2.0-10.0) H 07/08/17 16:44 Eosinophils % 6.9 % (0.0-5.0) H 07/08/17 16:44 Basophils % 0.1 % (0.0-2.0) 07/08/17 16:44 Sodium 138 mEq/L (136-145) 07/08/17 16:44 Potassium 4.6 mEq/L (3.5-5.1) 07/08/17 16:44 Chloride 105 mEq/L (98-107) 07/08/17 16:44 Carbon Dioxide 29.3 mEq/L (21.0-31.0) 07/08/17 16:44 Anion Gap 8.3 (7.0-16.0) 07/08/17 16:44 BUN 17 mg/dL (7-25) 07/08/17 16:44 Creatinine 1.0 mg/dL (0.7-1.3) 07/08/17 16:44 Est GFR ( Amer) > 60.0 ml/min (>90) 07/08/17 16:44 Est GFR (Non-Af Amer) > 60.0 ml/min 07/08/17 16:44 BUN/Creatinine Ratio 17.0 07/08/17 16:44 Glucose 109 mg/dL (70-105) H 07/08/17 16:44 Hemoglobin A1c % 5.5 % (4.0-6.0) 07/08/17 16:44 Calcium 10.2 mg/dL (8.6-10.3) 07/08/17 16:44 Total Bilirubin 0.5 mg/dL (0.3-1.0) 07/08/17 16:44 AST 14 U/L (13-39) 07/08/17 16:44 ALT 14 U/L (7-52) 07/08/17 16:44 Alkaline Phosphatase 68 U/L (34-104) 07/08/17 16:44 Total Protein 6.9 gm/dL (6.0-8.3) 07/08/17 16:44 Albumin 4.0 gm/dL (4.2-5.5) L 07/08/17 16:44 Globulin 2.9 gm/dL 07/08/17 16:44 Albumin/Globulin Ratio 1.4 (1.0-1.8) 07/08/17 16:44 Triglycerides 86 mg/dL (<150) 07/08/17 16:44 Cholesterol 160 mg/dL (<200) 07/08/17 16:44 LDL Cholesterol Direct 100 mg/dL (75-193) 07/08/17 16:44 HDL Cholesterol 47 mg/dL (23-92) 07/08/17 16:44 TSH 0.44 uIU/ml (0.34-5.60) 07/08/17 16:44 Urine Source CLEAN C 07/08/17 16:00 Urine Color YELLOW 07/08/17 16:00 Urine Clarity CLEAR (CLEAR) 07/08/17 16:00 Urine pH 7.0 (4.6 - 8.0) 07/08/17 16:00 Ur Specific [place] 1.020 (1.005-1.030) 07/08/17 16:00 Urine Protein NEGATIVE mg/dL (NEGATIVE) 07/08/17 16:00 Urine Glucose (UA) NEGATIVE mg/dL (NEGATIVE) 07/08/17 16:00 Urine Ketones NEGATIVE mg/dL (NEGATIVE) 07/08/17 16:00 Urine Blood NEGATIVE (NEGATIVE) 07/08/17 16:00 Urine Nitrate NEGATIVE (NEGATIVE) 07/08/17 16:00 Urine Bilirubin NEGATIVE (NEGATIVE) 07/08/17 16:00 Urine Urobilinogen 0.2 E.U./dL (0.2 - 1.0) 07/08/17 16:00 Ur Leukocyte Esterase NEGATIVE (NEGATIVE) 07/08/17 16:00 Urine RBC NONE SEEN /hpf (0-5) 07/08/17 16:00 Urine WBC NONE SEEN /hpf (0-5) 07/08/17 16:00 Ur Epithelial Cells NONE SEEN /lpf (FEW) 07/08/17 16:00 Urine Bacteria NONE SEEN /hpf (NONE SEEN) 07/08/17 16:00 Salicylates < 25.0 mg/L (30.0-100.0) L 07/08/17 16:44 Urine Opiates Screen NEGATIVE (NEGATIVE) 07/08/17 16:00 Urine Methadone Screen NEGATIVE (NEGATIVE) 07/08/17 16:00 Acetaminophen < 10.0 ug/mL (10.0-30.0) L 07/08/17 16:44 Ur Barbiturates Screen NEGATIVE (NEGATIVE) 07/08/17 16:00 Valproic Acid < 10.0 ug/mL (50.0-100.0) L 07/14/17 12:31 Ur Tricyclics Screen NEGATIVE (NEGATIVE) 07/08/17 16:00 Ur Phencyclidine Scrn NEGATIVE (NEGATIVE) 07/08/17 16:00 Amphetamines Screen NEGATIVE (NEGATIVE) 07/08/17 16:00 U Methamphetamines Scrn NEGATIVE (NEGATIVE) 07/08/17 16:00 U Benzodiazepines Scrn NEGATIVE (NEGATIVE) 07/08/17 16:00 U Cocaine Metab Screen NEGATIVE (NEGATIVE) 07/08/17 16:00 U Cannabinoids Screen POSITIVE (NEGATIVE) H 07/08/17 16:00 Ethyl Alcohol < 10 mg/dL (0-10) 07/08/17 16:44 RPR NONREACTIVE (NONREACTIVE) 07/08/17 16:44 - Physical Exam Vitals and I&O: Vital Signs Temp 97.6 F 08/10/17 06:32 Pulse 62 08/10/17 06:32 Resp 20 08/10/17 06:32 BP 93/63 08/10/17 06:32 Pulse Ox 99 08/10/17 06:32 Intake & Output 08/09/17 08/10/17 08/10/17 18:59 06:59 18:59 Intake Total 1200 480 Balance 1200 480 Intake: Oral 1200 480 Other: # Voids 4 2 # Bowel Movements 2 Stool Characteristics Soft Formed Active Medications: Current Medications Acetaminophen (Tylenol) 650 mg PO Q4HR PRN PRN Reason: Mild Pain / Temp above 100 Stop: 09/06/17 18:47 Last Admin: 08/03/17 13:46 Dose: 650 mg Al Hydrox/Mg Hydrox/Simethicone (Maalox) 30 ml PO Q4HR PRN PRN Reason: GI DISTRESS Stop: 09/06/17 18:47 Amoxicillin (Amoxil) 500 mg PO TID [facility] Stop: 10/01/17 13:59 Last Admin: 08/10/17 08:29 Dose: 500 mg Benztropine Mesylate (Cogentin) 1 mg PO BID KATHIE Stop: 10/05/17 16:59 Last Admin: 08/10/17 08:29 Dose: 1 mg Divalproex Sodium (Depakote Dr) 500 mg PO BID KATHIE PRN Reason: Protocol Stop: 09/12/17 16:59 Last Admin: 08/10/17 08:30 Dose: 500 mg Haloperidol (Haldol) 4 mg PO BID KATHIE PRN Reason: Protocol Stop: 10/03/17 11:29 Last Admin: 08/09/17 16:21 Dose: 4 mg Haloperidol Decanoate (Haldol Dec) 50 mg IM QMONTH KATHIE PRN Reason: Protocol Stop: 10/04/17 16:44 Last Admin: 08/05/17 18:15 Dose: 50 mg Haloperidol Lactate (Haldol) 2 mg IM BID PRN PRN Reason: Agitation Stop: 10/02/17 10:24 Lactobacillus Rhamnosus (Culturelle 15b) 1 each PO DAILY KATHIE Stop: 10/07/17 08:59 Last Admin: 08/10/17 08:29 Dose: 1 each Loratadine (Claritin) 10 mg PO DAILY PRN PRN Reason: Allergy Symptoms Stop: 09/10/17 08:46 Last Admin: 07/31/17 21:45 Dose: 10 mg Lorazepam (Ativan) 0.5 mg PO Q4HR PRN; Protocol PRN Reason: Anxiety Stop: 10/08/17 21:51 Last Admin: 08/09/17 22:33 Dose: 0.5 mg Magnesium Hydroxide (Milk Of Magnesia) 30 ml PO HS PRN PRN Reason: Constipation Miscellaneous (Probiotic Screen) 1 ea MC PRN PRN PRN Reason: PROTOCOL Stop: 10/06/17 11:18 Multivitamins/Vitamin C (Theragran) 1 tab PO DAILY KATHIE Stop: 09/07/17 08:59 Last Admin: 08/10/17 08:30 Dose: 1 tab Zolpidem Tartrate (Ambien) 5 mg PO HS PRN PRN Reason: Insomnia Stop: 09/29/17 22:50 Last Admin: 08/09/17 20:20 Dose: 5 mg General: Alert, No acute distress HEENT: Atraumatic, PERRLA Cardiovascular: Regular rate Lungs: Clear to auscultation Abdomen: Bowel sounds, Soft Extremities: Other (No edema) Neurological: Normal gait Skin: Other (Warm and dry) Psych/Mental Status: Other (Confused, not oriented) Assessment/Plan - Assessment Assessment: Patient is awake, alert, calm, in no acute distress. DX: Psychosis, HTN. - Plan Plan: Patient is under Psychiatric care, continue with SNF meds. Will continue to monitor. Nutritional Asmnt/Malnutr-PDOC - Dietary Evaluation Malnutrition Findings (Please click <Entered> for more info): Nutritional Asmnt/Malnutrition Start: 07/15/17 16: 48 Text: Status: Complete Freq: Document 07/15/17 16:54 LCHENG (Rec: 07/15/17 16:57 [id number] [id number]) Nutritional Asmnt/Malnutrition Patient General Information Nutritional Screening Low Risk Diagnosis Homicidal ideation, agitation Pertinent Medical Hx/Surgical Hx CAD, HTN, schizophrenia Subjective Information Per EMR, PO intake 100% of meals. Current Diet Order/ Nutrition Support regualr Pertinent Medications theragran Pertinent Labs 07/08 glucose 109, A1c 5.5, alb 4.0 Nutritional Hx/Data Height 1.68 m Height (Calculated Centimeters) 167.6 Current Weight (lbs) 68.039 kg Weight (Calculated Kilograms) 68.0 Weight (Calculated Grams) 55908.9 [place] Body Weight 142 Body Mass Index (BMI) 24.2 Weight Status Approriate GI Symptoms GI Symptoms None Last BM 07/14 Difficult in: None Skin Integrity/Comment: intact Current %PO Good (75-100%) Estimated Nutritional Goals BEE in Kcals: Using Current wt Calories/Kcals/Kg 25-30 Kcals Calculated 1051-0828 Protein: Using Current wt Protein g/k Protein Calculated 68 Fluid: ml 1700-2040ml (1ml/kcal) Nutritional Problem No current Nutrition Prob Problem N/A Malnutrition Alert Protein-Calorie Malnutrition N/A Is there a minimum of two criteria No selected? Query Text:Check all the applicable criteria. A minimum of two criteria are recommended for diagnosis of either severe or non-severe malnutrition. Intervention/Recommendation Comments 1. Continue with current diet as ordered. 2. Monitor PO intake, wt, labs and skin integrity 3. F/U as low risk in 7ddays, 07/22 Expected Outcomes/Goals Expected Outcomes/Goals 1. PO intake to meet at least 75% of nutritional needs. 2. Wt stability, skin to remain intact, labs to approach WNL.
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
== END 2017-08-10 17:05 | DRG 885 ==
LOC: ER 16:12 → GERO 16:28
PROVIDERS: ADMIT Psychiatry & Neurology Psychiatry; ATTEND Psychiatry & Neurology Psychiatry
DX: F20.9 Schizophrenia, unspecified (principal); F29 Unspecified psychosis not due to a substance or known physiological condition; F12.90 Cannabis use, unspecified, uncomplicated; I10 Essential (primary) hypertension; I25.10 Atherosclerotic heart disease of native coronary artery without angina pectoris; R45.850 Homicidal ideations; F31.9 Bipolar disorder, unspecified; Z82.49 Family history of ischemic heart disease and other diseases of the circulatory system
CPT/HCPCS: 36415-UA; 80053-TC; 80061-TC; 80164-TC; 80307; 80320-TC; 80329-TC; 81001-TC; 83036-90; 84443-TC; 85025-TC; 86592-TC; 90899; 93005; G0410; J1200; J1630; J1631; J2060; Z7610